=== PATIENT | male | born 1980 ===

== ENCOUNTER 2020-10-02 17:13 | Outpatient (REF) | payer OTHER, SELFPAY | END 2020-10-02 17:14 | disposition home or self-care (01) | LOC: HO.LAB 17:13 | PROVIDERS: Visit Provider Internal Medicine | DX: Z20.828 Contact with and (suspected) exposure to other viral communicable diseases (principal) | CPT/HCPCS: C9803; U0003 ==

== ENCOUNTER 2020-10-18 09:18 | Emergency (ER) | payer SELFPAY ==
[2020-10-18 09:38] VITALS: BP 129/59; PULSE 79; RESP 20; TEMP 37.7; O2SAT 97; BMI 36.8
--- NOTE | 2020-10-18 10:03 | XR_ITS ---
EXAMINATION: XR CHEST CLINICAL INFORMATION: Cough COMPARISON: Chest 10/29/2019 TECHNIQUE: Portable upright AP view of the chest was obtained. FINDINGS: The lungs are clear. There is no airspace consolidation or groundglass opacity. The heart is normal in size. The costophrenic sulci are well-defined. The hilar and mediastinal contours and bony structures are unremarkable. XR/XR chest 1V IMPRESSION: Unremarkable examination.
--- NOTE | 2020-10-18 10:27 | ECG_ITS ---
Test Reason : SOB Blood Pressure : / mmHG Vent. Rate : 074 BPM Atrial Rate : 074 BPM P-R Int : 198 ms QRS Dur : 086 ms QT Int : 354 ms P-R-T Axes : 026 079 037 degrees QTc Int : 392 ms Normal sinus rhythm Normal ECG No previous ECGs available Referred By: Mj Reaves Electronically Signed By:James Diez
[2020-10-18 11:11] VITALS: BP 131/68; PULSE 85; RESP 25; O2SAT 94
[2020-10-18] MEDS: 0.9 % Sodium Chloride 1,000 ML 999 ML IV (11:33)
[2020-10-18] MEDS: guaiFEN/Codeine SF 200/20/10ML 10 ML LIQUID PO (11:33)
[2020-10-18] MEDS: Ketorolac Tromethamine 30 MG/ML VIAL IVPUSH (11:33)
[2020-10-18 11:36] LABS: Basophils Percent Auto 0.4 % (0-2); Eosinophils Absolute Auto 0.3 X10*3/uL (0.0-0.4); Eosinophils Percent Auto 2.6 % (0-4); Hematocrit 43.4 % (42-52); Hemoglobin 14.4 g/dl (14.0-18.0); Imm Gran Abs Auto 0.05 X10*3/uL (0.00-0.03); Imm Gran Pct Auto 0.5 % (0.0-0.4); Lymphocytes Absolute Auto 1.3 X10*3/uL (1.2-4.9); Lymphocytes Percent Auto 12.9 % (20-40); MANUAL DIFF FLAG NO; Mean Corpuscular HGB Conc 33.2 g/dl (31.0-36.0); Mean Corpuscular Hemoglobin 29.1 pg (27.0-33.0); Mean Corpuscular Volume 87.9 fL (80-98); Monocytes Absolute Auto 1.1 X10*3/uL (0.1-1.2); Monocytes Percent Auto 11.2 % (2-11); Neutrophils Absolute Auto 7.4 X10*3/uL (2.0-8.3); Neutrophils Percent Auto 72.4 % (45-73); Platelet Count 235 X10*3/uL (160-400); Red Blood Count 4.94 X10*6/uL (4.60-5.80); Red Cell Distribution Width 12.9 % (11.0-16.0); White Blood Count 10.2 X10*3/uL (4.8-10.8)
[2020-10-18 11:39] LABS: D Dimer < 200 NG/ML
--- NOTE | 2020-10-18 11:39 | ED.URI ---
HPI - URI/Sore Throat General Chief Complaint: Upper Respiratory Symptoms Stated Complaint: cough,bodyaches Time Seen by Provider: 10/18/20 09:42 Source: patient Mode of arrival: ambulatory Limitations: no limitations History of Present Illness HPI Narrative: Patient presents to the ED for coughing, headache, body aches, and chest pain for about 10 days. Patient states also having similar symptoms. Patient denies any leg pain, calf swelling, coughing up blood, or chest pain on inspiration. Related Data Previous Rx's Medication Instructions Recorded benzonatate [Tessalon Perles] 100 mg PO TID PRN #15 cap 10/18/20 Allergies Allergy/AdvReac Type Severity Reaction Status Date / Time barium sulfate AdvReac Unknown inadequate Verified 11/03/19 00:00 response trazodone AdvReac Unknown dry mouth, Verified 11/03/19 00:00 vomiting Review of Systems Constitutional: Constitutional: Reports as per HPI, Reports no additional constitutional complaints, Reports body ache(s), Reports chills and Reports fever(s) Eyes: Eyes: Reports as per HPI and Reports no additional eye complaints ENT: Reports system reviewed and no additional complaints, except as documented and Reports as per HPI Cardiovascular: Cardiovascular: Reports as per HPI, Reports no additional cardiovascular complaints and Reports chest pain Respiratory: Respiratory: Reports as per HPI, Reports no additional respiratory complaints and Reports cough Gastrointestinal: Gastrointestinal: Reports as per HPI and Reports no additional gastrointestinal complaints Musculoskeletal: Musculoskeletal: Reports no additional musculoskeletal complaints and Reports as per HPI Neurologic: Reports system reviewed and no additional complaints, except as documented and Reports as per HPI Psychiatric: Psychiatric: Reports no additional psychiatric complaints and Reports as per HPI [facility] Past Medical History Medical History (Updated 10/18/20 @ 15:22 by JOSE Louis) No known health problems Social History Social History Advance Directives: No Advance Directives Information Provided: Yes Physical Exam Vital Signs: Vital Signs: Last Vital Signs Temp 99.3 F 10/18/20 15:01 Pulse 79 10/18/20 15:01 Resp 18 10/18/20 15:01 BP 131/62 10/18/20 15:01 Pulse Ox 97 10/18/20 15:01 Body Mass Index 36.8 Const: General: cooperative, healthy appearing, comfortable, no acute distress, well developed, alert and awake Orientation/consciousness: patient oriented x3 HENMT: Head: Yes normal to inspection and Yes No palpable skull fracture present Eyes: General: appearance normal, both eyes and all related structures Neck: Neck: Yes normal visual inspection, Yes full ROM, Yes no lymphadenopathy, Yes no meningeal signs, Yes trachea midline, Yes supple and No tender Chest: Chest palpation & inspection: normal inspection of the chest and normal palpation of entire chest wall Resp: Effort & Inspection: normal respiratory effort and able to speak in complete sentences Auscultation: clear to auscultation bilaterally Cardio: Jugular venous distension: no JVD Heart sounds: S1 normal heart sound present and S2 normal heart sound present GI: Inspection: Yes normal to inspection and No abdominal wall ecchymosis Palpation (GI): Soft to palpation, not firm, nontender, no guarding and not rigid : General: No CVA tenderness and Yes no CVA tenderness Back/Spine/Pelvis: Back: no CVA tenderness, No CVA tenderness and No back tenderness Skin: General skin exam: no rashes or lesions noted and elasticity normal Neuro: General: patient oriented x3, gait normal, no meningeal signs and CN's II-XI intact bilaterally Cranial nerves: Yes CN's II-XII intact bilaterally Extrem: Other: Lower extremities negative for any swelling, pitting edema, calf tenderness. General: Yes normal to inspection and Yes full ROM Psych: Appearance: grossly normal, well kempt and not disheveled Course Course Course Narrative: Patient having COVID like symptoms. Patient coughing profusely. Will do labs, chest x-ray, and IV fluids. COVID swab sent. Will re-evaluate patient. Reevaluation(s) Reevaluation #1: Patient positive for COVID-19 virus. Patient labs are normal. Patient states feeling better after receiving fluids and coughing medication. X-ray negative for pneumonia. D-dimer is negative. No antibiotics indicated. Patient is safe for discharge. Troponin negative with normal EKG Time: 15:19 MDM - URI/Sore Throat MDM Narrative Medical decision making narrative: COVID-19 Lab Data Result diagrams: 10/18/20 11:19 10/18/20 11:19 Labs: Lab Results 10/18/20 10/18/20 10/18/20 Range/Units 11:13 11:19 11:19 WBC 10.2 (4.8-10.8) X10*3/uL RBC 4.94 (4.60-5.80) X10*6/uL Hgb 14.4 (14.0-18.0) g/dl Hct 43.4 (42-52) % MCV 87.9 (80-98) fL MCH 29.1 (27.0-33.0) pg MCHC 33.2 (31.0-36.0) g/dl RDW 12.9 (11.0-16.0) % Plt Count 235 (160-400) X10*3/uL MPV 10.0 (9.4-12.4) fL Immature Gran % (Auto) 0.5 H (0.0-0.4) % Neut % (Auto) 72.4 (45-73) % Lymph % (Auto) 12.9 L (20-40) % [place] % (Auto) 11.2 H (2-11) % Eos % (Auto) 2.6 (0-4) % Baso % (Auto) 0.4 (0-2) % Lymph # (Auto) 1.3 (1.2-4.9) X10*3/uL [place] # (Auto) 1.1 (0.1-1.2) X10*3/uL Eos # (Auto) 0.3 (0.0-0.4) X10*3/uL Baso # (Auto) 0.0 (0.0-0.2) X10*3/uL Abs Immat Gran (auto) 0.05 H (0.00-0.03) X10*3/uL Absolute Neuts (auto) 7.4 (2.0-8.3) X10*3/uL Absolute Nucleated RBC 0.000 (0.0-0.012) X10*3/uL Nucleated RBC % (auto) 0.0 (0.0-0.2) /100WBC PT 12.4 (10.8-13.0) SEC INR 1.0 (0.9-1.1) APTT 30.5 (24.1-38.0) SEC D-Dimer < 200 NG/ML Sodium (135-145) mmol/L Potassium (3.3-5.1) mmol/l Chloride (96-108) mmol/L Carbon Dioxide (22-29) mmol/L Anion Gap (12-20) BUN (9-16) mg/dL Creatinine (0.5-1.4) mg/dL Estim Creat Clear Calc Estimated GFR Random Glucose (60-115) mg/dL Calcium (8.4-10.2) mg/dL Ferritin (20-250) ng/mL Total Bilirubin (0.0-1.0) mg/dL AST (5-37) U/L ALT (0-40) U/L Alkaline Phosphatase (39-117) U/L Lactate Dehydrogenase (118-273) U/L Troponin I High Sens (<3.5-35.0) ng/L B-Natriuretic Peptide (<100) pg/mL Total Protein (6.5-8.0) g/dL Albumin (3.5-5.0) g/dL Procalcitonin ng/mL Coronavirus (PCR) POSITIVE A (Negative) Influenza Type A (PCR) NEGATIVE (Negative) Influenza Type B (PCR) NEGATIVE (Negative) RSV RNA Qual (PCR) NEGATIVE (Negative) 10/18/20 10/18/20 10/18/20 Range/Units 11:19 11:19 11:19 WBC (4.8-10.8) X10*3/uL RBC (4.60-5.80) X10*6/uL Hgb (14.0-18.0) g/dl Hct (42-52) % MCV (80-98) fL MCH (27.0-33.0) pg MCHC (31.0-36.0) g/dl RDW (11.0-16.0) % Plt Count (160-400) X10*3/uL MPV (9.4-12.4) fL Immature Gran % (Auto) (0.0-0.4) % Neut % (Auto) (45-73) % Lymph % (Auto) (20-40) % [place] % (Auto) (2-11) % Eos % (Auto) (0-4) % Baso % (Auto) (0-2) % Lymph # (Auto) (1.2-4.9) X10*3/uL [place] # (Auto) (0.1-1.2) X10*3/uL Eos # (Auto) (0.0-0.4) X10*3/uL Baso # (Auto) (0.0-0.2) X10*3/uL Abs Immat Gran (auto) (0.00-0.03) X10*3/uL Absolute Neuts (auto) (2.0-8.3) X10*3/uL Absolute Nucleated RBC (0.0-0.012) X10*3/uL Nucleated RBC % (auto) (0.0-0.2) /100WBC PT (10.8-13.0) SEC INR (0.9-1.1) APTT (24.1-38.0) SEC D-Dimer NG/ML Sodium 138 (135-145) mmol/L Potassium 4.5 (3.3-5.1) mmol/l Chloride 104 (96-108) mmol/L Carbon Dioxide 26 (22-29) mmol/L Anion Gap 13 (12-20) BUN 18 H (9-16) mg/dL Creatinine 0.90 (0.5-1.4) mg/dL Estim Creat Clear Calc 136.7 Estimated GFR > 60 Random Glucose 97 (60-115) mg/dL Calcium 8.8 (8.4-10.2) mg/dL Ferritin 550 H (20-250) ng/mL Total Bilirubin 0.5 (0.0-1.0) mg/dL AST 86 H (5-37) U/L ALT 142 H (0-40) U/L Alkaline Phosphatase 111 (39-117) U/L Lactate Dehydrogenase 275 H (118-273) U/L Troponin I High Sens < 3.5 (<3.5-35.0) ng/L B-Natriuretic Peptide (<100) pg/mL Total Protein 6.9 (6.5-8.0) g/dL Albumin 4.1 (3.5-5.0) g/dL Procalcitonin 0.10 ng/mL Coronavirus (PCR) (Negative) Influenza Type A (PCR) (Negative) Influenza Type B (PCR) (Negative) RSV RNA Qual (PCR) (Negative) 10/18/20 Range/Units 11:19 WBC (4.8-10.8) X10*3/uL RBC (4.60-5.80) X10*6/uL Hgb (14.0-18.0) g/dl Hct (42-52) % MCV (80-98) fL MCH (27.0-33.0) pg MCHC (31.0-36.0) g/dl RDW (11.0-16.0) % Plt Count (160-400) X10*3/uL MPV (9.4-12.4) fL Immature Gran % (Auto) (0.0-0.4) % Neut % (Auto) (45-73) % Lymph % (Auto) (20-40) % [place] % (Auto) (2-11) % Eos % (Auto) (0-4) % Baso % (Auto) (0-2) % Lymph # (Auto) (1.2-4.9) X10*3/uL [place] # (Auto) (0.1-1.2) X10*3/uL Eos # (Auto) (0.0-0.4) X10*3/uL Baso # (Auto) (0.0-0.2) X10*3/uL Abs Immat Gran (auto) (0.00-0.03) X10*3/uL Absolute Neuts (auto) (2.0-8.3) X10*3/uL Absolute Nucleated RBC (0.0-0.012) X10*3/uL Nucleated RBC % (auto) (0.0-0.2) /100WBC PT (10.8-13.0) SEC INR (0.9-1.1) APTT (24.1-38.0) SEC D-Dimer NG/ML Sodium (135-145) mmol/L Potassium (3.3-5.1) mmol/l Chloride (96-108) mmol/L Carbon Dioxide (22-29) mmol/L Anion Gap (12-20) BUN (9-16) mg/dL Creatinine (0.5-1.4) mg/dL Estim Creat Clear Calc Estimated GFR Random Glucose (60-115) mg/dL Calcium (8.4-10.2) mg/dL Ferritin (20-250) ng/mL Total Bilirubin (0.0-1.0) mg/dL AST (5-37) U/L ALT (0-40) U/L Alkaline Phosphatase (39-117) U/L Lactate Dehydrogenase (118-273) U/L Troponin I High Sens (<3.5-35.0) ng/L B-Natriuretic Peptide < 10 (<100) pg/mL Total Protein (6.5-8.0) g/dL Albumin (3.5-5.0) g/dL Procalcitonin ng/mL Coronavirus (PCR) (Negative) Influenza Type A (PCR) (Negative) Influenza Type B (PCR) (Negative) RSV RNA Qual (PCR) (Negative) ECG Data Interpretation: Normal sinus rhythm. Normal EKG. Ventricular rate 74. Pr interval 198. QRS 86. Negative STEMI Discharge Plan Discharge Clinical Impression: COVID-19 Patient Disposition: Home, Self-Care Instructions: COVID-19 (Coronavirus Disease 2019) (ED) Additional Instructions: Return to the ED immediately for any chest pain, shortness of breath, weakness, dizziness, or any other concerning symptoms. Recommend 14 days self-isolation. Prescriptions: New benzonatate [Tessalon Perles] 100 mg capsule 100 mg PO TID PRN (Reason: cough) Qty: 15 RF: 0 Referrals: Chrissy Braden MD [Primary Care Provider] - 2 days (COVID 19 positive. X-ray negative for any pneumonia) Stand Alone Forms: Work/School Release Interventions: ED Discharge Assessment Last Done: 10/18/20 15:43 Discharge Date/Time: 10/18/20 15:44 Print Language: Setswana
[2020-10-18 11:59] LABS: Alanine Aminotransferase 142 U/L (0-40); Albumin Level 4.1 g/dL (3.5-5.0); Alkaline Phosphatase 111 U/L (39-117); Anion Gap 13 (12-20); Aspartate Amino Transferase 86 U/L (5-37); Bilirubin Total 0.5 mg/dL (0.0-1.0); Blood Urea Nitrogen 18 mg/dL (9-16); Calcium 8.8 mg/dL (8.4-10.2); Carbon Dioxide 26 mmol/L (22-29); Chloride 104 mmol/L (96-108); Creatinine Clr Calc Pharmacy 136.7; Estimated Glomerular Filt Rate > 60; Glucose Random 97 mg/dL (60-115); Lactate Dehydrogenase 275 U/L (118-273); Potassium 4.5 mmol/l (3.3-5.1); Sodium 138 mmol/L (135-145); Total Protein 6.9 g/dL (6.5-8.0)
[2020-10-18 12:01] LABS: B Type Natriuretic Peptide < 10 pg/mL (<100)
[2020-10-18 12:15] LABS: Troponin-I High Sensitivity < 3.5 ng/L (<3.5-35.0)
[2020-10-18 12:20] LABS: Ferritin 550 ng/mL (20-250)
[2020-10-18 12:30] LABS: Influenza A PCR NEGATIVE (Negative); Influenza B PCR NEGATIVE (Negative); Resp Syncy Virus RNA Qual PCR NEGATIVE (Negative); SARS COV2 PCR INHOUSE POSITIVE (Negative)
[2020-10-18 12:32] LABS: Prothrombin Time 12.4 SEC (10.8-13.0)
[2020-10-18 12:34] LABS: Partial Thromboplastin Time 30.5 SEC (24.1-38.0)
[2020-10-18 15:01] VITALS: BP 131/62; PULSE 79; RESP 18; TEMP 37.4; O2SAT 97
== END 2020-10-18 15:44 | disposition home or self-care (01) ==
PROVIDERS: Physician Assistant; Emergency Provider Emergency Medicine Emergency Medical Services; PCP Internal Medicine
DX: U07.1 COVID-19 (principal)
CPT/HCPCS: 0241U; 36415; 71045; 80053; 82728; 83615; 83880; 84145; 84484; 85025; 85379; 85610; 85730; 93005; 96361; 96374; 99284; J1885

== ENCOUNTER 2021-01-09 10:00 | Outpatient (REF) | payer SELFPAY ==
[2021-01-09 10:54] LABS: MANUAL DIFF FLAG NO
[2021-01-09 10:57] LABS: Basophils Percent Auto 0.3 % (0-2); Eosinophils Absolute Auto 0.2 X10*3/uL (0.0-0.4); Eosinophils Percent Auto 2.7 % (0-4); Hematocrit 45.3 % (42-52); Hemoglobin 14.8 g/dl (14.0-18.0); Imm Gran Abs Auto 0.03 X10*3/uL (0.00-0.03); Imm Gran Pct Auto 0.3 % (0.0-0.4); Lymphocytes Absolute Auto 2.6 X10*3/uL (1.2-4.9); Lymphocytes Percent Auto 30.1 % (20-40); Mean Corpuscular HGB Conc 32.7 g/dl (31.0-36.0); Mean Corpuscular Hemoglobin 28.6 pg (27.0-33.0); Mean Corpuscular Volume 87.6 fL (80-98); Mean Platelet Volume 10.4 fL (9.4-12.4); Monocytes Absolute Auto 0.8 X10*3/uL (0.1-1.2); Monocytes Percent Auto 9.5 % (2-11); Neutrophils Percent Auto 57.1 % (45-73); Platelet Count 287 X10*3/uL (160-400); Red Blood Count 5.17 X10*6/uL (4.60-5.80); Red Cell Distribution Width 12.7 % (11.0-16.0); White Blood Count 8.7 X10*3/uL (4.8-10.8)
[2021-01-09 11:36] LABS: Alanine Aminotransferase 160 U/L (0-40); Albumin Level 4.3 g/dL (3.5-5.0); Alkaline Phosphatase 103 U/L (39-117); Anion Gap 15 (12-20); Aspartate Amino Transferase 68 U/L (5-37); Bilirubin Total 0.6 mg/dL (0.0-1.0); Blood Urea Nitrogen 14 mg/dL (9-16); Calcium 9.3 mg/dL (8.4-10.2); Carbon Dioxide 25 mmol/L (22-29); Chloride 104 mmol/L (96-108); Cholesterol 185 mg/dL; Estimated Glomerular Filt Rate > 60; Glucose Fasting 109 mg/dL (60-99); HDL Cholesterol 46 mg/dL; LDL Cholesterol Calculated 122 mg/dl; Potassium 4.4 mmol/L (3.3-5.1); Sodium 140 mmol/L (135-145); Total Protein 7.1 g/dL (6.5-8.0); Triglycerides 88 mg/dL
[2021-01-13 15:32] LABS: Vitamin D 25-OH, D2 <4 ng/mL; Vitamin D 25-OH, D3 19 ng/mL; Vitamin D 25-OH, Total 19 ng/mL (30-100)
[2021-01-14 14:01] LABS: Testosterone, Free 44.3 pg/mL (35.0-155.0); Testosterone, Total 232 ng/dL (250-1100)
== END 2021-01-09 10:01 | disposition home or self-care (01) ==
LOC: HO.LAB 10:00
PROVIDERS: PCP Internal Medicine; Visit Provider Internal Medicine
DX: N53.19 Other ejaculatory dysfunction (principal); E78.5 Hyperlipidemia, unspecified; E66.9 Obesity, unspecified; K62.5 Hemorrhage of anus and rectum; D64.9 Anemia, unspecified; E55.9 Vitamin D deficiency, unspecified
CPT/HCPCS: 36415; 80053; 80061; 82306; 84402; 84403; 85025; 99202

== ENCOUNTER 2021-03-01 08:14 | Day surgery (SDC) | payer OTHER, SELFPAY ==
[2021-02-25 13:35] VITALS: BMI 36.6
--- NOTE | 2021-02-27 12:49 | HO.ANESPROP2 ---
Documented by User: Alva Lucia 02/27/21 12:50 HPI - Anesthesia Eval Consult details Narrative: 40yo M for Colonoscopy PMFSH Active Problems Active Problems: All Active Problems (Updated 02/25/21 @ 13:33 by Loni Morales) COVID-19 (Acute) Abnormal ejaculation (Acute) Obese (Acute) Family history of colon cancer (Acute) Rectal bleeding (Acute) Past Medical History Medical History Abnormal ejaculation Family history of colon cancer Obese Personal history of COVID-19 Rectal bleeding Family History Family History Father Hypertension Stroke Diabetes Mother Hypertension Diabetes Paternal Grandfather Cancer Paternal Aunt Cancer Brother Cancer, Onset Age: 52 Sister No problems noted. Surgical History Surgical History History of appendectomy History of incision and drainage Social History Social History Alcohol intake: current Alcohol intake frequency: holidays/special occasions only Smoking Status: Former smoker Tobacco Type: Cigarette Advance Directives Information Provided: No Meds Allergies Allergy/AdvReac Type Severity Reaction Status Date / Time barium sulfate AdvReac Intermediate inadequate Verified 02/22/21 14:17 response trazodone AdvReac Intermediate dry mouth, Verified 02/22/21 14:17 vomiting Exam Exam Date and Time: February 27, 2021 1249 Height,Weight and Vital Signs: Height 5 ft 10 in Weight 116 kg Narrative Narrative: EKG 10/2020 Vent. Rate : 074 BPM Atrial Rate : 074 BPM P-R Int : 198 ms QRS Dur : 086 ms QT Int : 354 ms P-R-T Axes : 026 079 037 degrees QTc Int : 392 ms Normal sinus rhythm Normal ECG No previous ECGs available Assessment and Plan Assessment Anesthesia Assessment: Chart Reviewed Documented by User: Cynthia Nj 03/01/21 08:49 PMFSH Past Medical History Medical History Abnormal ejaculation Family history of colon cancer Obese Personal history of COVID-19 Rectal bleeding Family History Family History Father Hypertension Stroke Diabetes Mother Hypertension Diabetes Paternal Grandfather Cancer Paternal Aunt Cancer Brother Cancer, Onset Age: 52 Sister No problems noted. Family history of problems with anesthesia: No Surgical History Surgical History History of appendectomy History of incision and drainage History of Problems with Anesthesia: No Social History Social History Alcohol intake: current Alcohol intake frequency: holidays/special occasions only Smoking Status: Former smoker Tobacco Type: Cigarette Advance Directives Information Provided: No Meds Allergies Allergy/AdvReac Type Severity Reaction Status Date / Time barium sulfate AdvReac Intermediate inadequate Verified 02/22/21 14:17 response trazodone AdvReac Intermediate dry mouth, Verified 02/22/21 14:17 vomiting Exam Height,Weight and Vital Signs: Vital Signs Temp Pulse Resp BP Pulse Ox 03/01/21 08:38 97.0 F 67 18 143/57 H 98 Airway Mallampati Class: III TM Dist: >3cm Neck ROM: Full Loose/Missing/Broken Teeth: Yes (Molars) Heart: RRR Lungs: CTAB Assessment and Plan Assessment Anesthesia Assessment: Anesthesia Plan Discussed and Chart Reviewed Final Anesthetic Review NPO: Yes ASA Class: II Final Preanesthetic Review: No Changes in Pt Med Stat, Meds/Allgs Chart Reviewed, Consent Obtained/Reviewed and Anes Risks/Benef Reviewed Patient Risk: Low Procedure Risk: Low Assessment/Block/Sedation in SS: Assess/Block/Sedation-SS Anesthetic Plan Anesthetic Plan: MAC: Disposition: Standard PACU
[2021-03-01 08:38] VITALS: BP 143/57; PULSE 67; RESP 18; TEMP 36.1; O2SAT 98
[2021-03-01] MEDS: Lactated Ringers 1,000 ML 100 ML IVCONT (08:52)
--- NOTE | 2021-03-01 09:32 | MHC.SHP ---
Pre-Procedural Eval Section B Chief Complaint: Rectal Bleeding Details of Present Illness: has passage of bright red blood per rectum periodically He states that his brother was diagnosed to have colon cancer at a young age Relevant Social History: None Present Medications: see Short Stay Collaborative assessment Allergies: Allergies Allergy/AdvReac Type Severity Reaction Status Date / Time barium sulfate AdvReac Intermediate inadequate Verified 03/01/21 08:53 response trazodone AdvReac Intermediate dry mouth, Verified 03/01/21 08:53 vomiting Review of Systems Sugical H&P ROS: Negative: Constitution, Cardiovascular, Respiratory, Neurological, Psychiatric, Hem-Onc, Allergic/Immunologic, Genitourinary, Musculoskeletal, Integumentary, Endocrine and Eyes/Ears/Nose/Throat and Yes, Specify: Gastrointestinal (Periodic passes of blood per rectum) Exam Surgical H&P Exam: Normal: HEENT, Normal: Heart, Normal: Lungs, Normal: Extremities, Normal: Abdomen, Normal: Skin and Normal: Neurological Plan Diagnosis/Plan: Unchanged I have reviewed the history and physical and performed a pertinent physical examination on my patient. No changes have occurred unless specified.
--- NOTE | 2021-03-01 10:16 | P.OP_ITS ---
Operative Note Operative Note Date of Service: 03/01/21 Narrative: Preop diagnosis: Rectal bleeding, family history of colon cancer Postop diagnosis as above, with hemorrhoids, normal colonoscopy findings Procedure: Colonoscopy Surgeon: Timmy Cannon MD The patient is a 40-year-old male who has had periodic passage of bright blood per rectum for about a year. He also says that he has brother who was diagnosed to have colon cancer at a young age. I had recommended for him to undergo colonoscopy. He understood the technique of the procedure. He was aware of the risks, benefits, and alternatives. He was brought to the operating room and placed in left lateral decubitus po sition under monitored anesthesia care. A full digital rectal was done. He did have a bulky internal and external hemorrhoid column. The tip of the Olympus colonoscope was gently introduced through the anal orifice and advanced with insufflation gently all the way to the cecum. The cecum was intubated. The cecum was identified via visualization of the ileocecal valve as well as the appendiceal orifice. The cecal mucosa was unremarkable. The scope was then gradually withdrawn with careful examination of the entire colonic mucosa done with scope withdrawal. The patient had adequate bowel prep so it was unlikely that any lesion may have been missed. The rectum was reached. There were no lesions seen. The anal canal and anal shelf were unremarkable. He did have a bulky internal/ external column. The scope was then withdrawn completely. The patient tolerated procedure well. There were no immediate complications. He was transferred to the recovery room with stable vital signs. In view of his family history I would recommend screening colonoscopy every 5 years at this time.
[2021-03-01 10:20] VITALS: BP 134/88; PULSE 78; RESP 16; TEMP 36.4; O2SAT 100
--- NOTE | 2021-03-01 10:21 | PM.OP ---
Brief Operative Note Date of Service: 03/01/21 Pre-op diagnosis: Blood per rectum, family history of colon cancer Post-op diagnosis: same Procedure: Colonoscopy Surgeon: Timmy Cannon MD Anesthesia: MAC Was an [employer] Specialist used for this Procedure?: No Estimated blood loss (mL): 0 Pathology: none sent Condition: stable Disposition: PACU
[2021-03-01 10:35] VITALS: BP 149/81; PULSE 76; RESP 18; TEMP 36.4; O2SAT 98
[2021-07-09 09:51] VITALS: BMI 38.4
== END 2021-03-01 10:51 | disposition home or self-care (01) ==
PROVIDERS: PCP Internal Medicine; Visit Provider Surgery
PROC: 0DJD8ZZ Inspection of Lower Intestinal Tract, Via Natural or Artificial Opening Endoscopic (ICD-10-PCS; CPT 45378; principal; 2021-03-01 09:30)
DX: K62.5 Hemorrhage of anus and rectum (principal); Z80.0 Family history of malignant neoplasm of digestive organs; K64.8 Other hemorrhoids; K64.4 Residual hemorrhoidal skin tags; Z86.16 Personal history of COVID-19; Z88.8 Allergy status to other drugs, medicaments and biological substances; Z87.891 Personal history of nicotine dependence
CPT/HCPCS: 45378

== ENCOUNTER → 2021-03-13 12:06 | Outpatient (BNVA) | payer OTHER, SELFPAY | PROVIDERS: PCP Internal Medicine; Visit Provider Surgery | CPT/HCPCS: 99212 ==

== ENCOUNTER → 2021-03-27 11:14 | Outpatient (BNVA) | payer OTHER, SELFPAY | PROVIDERS: PCP Internal Medicine; Referring Provider Internal Medicine; Visit Provider Surgery | DX: K64.9 Unspecified hemorrhoids (principal); Z80.0 Family history of malignant neoplasm of digestive organs | CPT/HCPCS: 99212 ==

== ENCOUNTER 2021-04-11 13:07 | Outpatient (REF) | payer OTHER, SELFPAY ==
--- NOTE | ~2021-04-11 | XR_ITS ---
EXAMINATION: XR ANKLE, RIGHT CLINICAL INFORMATION: Effusion, right ankle COMPARISON: None TECHNIQUE: AP, lateral, and mortise views of the right ankle. FINDINGS: No fracture or dislocation. Large plantar calcaneal enthesophyte. Mild spurring of the dorsal midfoot. No widening of the ankle mortise. No soft tissue swelling. XR/XR ankle RT min 3V IMPRESSION: No acute osseous abnormality.
--- NOTE | ~2021-04-11 | XR_ITS ---
EXAMINATION: XR CHEST CLINICAL INFORMATION: Cough COMPARISON: 10/18/2020 TECHNIQUE: 2 views of the chest were obtained. FINDINGS: Lungs are clear. No focal consolidation or mass. Normal pulmonary vascularity. No pleural effusion or pneumothorax. Normal heart size. No acute osseous abnormality. XR/XR chest 2V IMPRESSION: No acute pulmonary disease
--- NOTE | ~2021-04-11 | US_ITS ---
EXAMINATION: US VENOUS ULTRASOUND WITH DOPPLER LOWER EXTREMITY, RIGHT CLINICAL INFORMATION: Right ankle swelling COMPARISON: None TECHNIQUE: Ultrasound of the deep veins is performed from the hip to the calf with compression sonography and color and pulse Doppler assessment. Spectral analysis with color-flow imaging is performed. FINDINGS: There is normal venous compression and respiratory variation and augmented flow. The visualized common femoral vein, superficial femoral vein, profunda femoral vein, popliteal vein, and the trifurcation region shows no evidence of deep venous thrombosis. There is a small varicosity seen in the proximal anterior calf. No evidence of superficial thrombophlebitis is seen. There is no popliteal fossa cyst. US/US venous duplex LE RT IMPRESSION: No DVT demonstrated in the right lower extremity.
== END 2021-04-11 13:08 | disposition home or self-care (01) ==
LOC: HO.US 13:07
PROVIDERS: PCP Internal Medicine; Visit Provider Nurse Practitioner Family
DX: R05 Cough (principal); M25.471 Effusion, right ankle
CPT/HCPCS: 71046; 73610; 93971

== ENCOUNTER → 2021-06-19 10:33 | Outpatient (BNVA) | payer OTHER, SELFPAY | PROVIDERS: PCP Internal Medicine; Referring Provider Internal Medicine; Visit Provider Surgery | DX: K64.2 Third degree hemorrhoids (principal) | CPT/HCPCS: 46600; 99212 ==

== ENCOUNTER 2021-07-03 08:36 | Outpatient (REF) | payer OTHER, SELFPAY ==
[2021-07-03 11:35] LABS: MANUAL DIFF FLAG NO
[2021-07-03 11:43] LABS: Basophils Percent Auto 0.3 % (0-2); Eosinophils Absolute Auto 0.2 X10*3/uL (0.0-0.4); Eosinophils Percent Auto 2.4 % (0-4); Hematocrit 46.2 % (42-52); Imm Gran Abs Auto 0.04 X10*3/uL (0.00-0.03); Imm Gran Pct Auto 0.4 % (0.0-0.4); Lymphocytes Absolute Auto 2.8 X10*3/uL (1.2-4.9); Lymphocytes Percent Auto 27.8 % (20-40); Mean Corpuscular HGB Conc 32.5 g/dl (31.0-36.0); Mean Corpuscular Hemoglobin 28.6 pg (27.0-33.0); Mean Platelet Volume 10.3 fL (9.4-12.4); Monocytes Absolute Auto 0.9 X10*3/uL (0.1-1.2); Monocytes Percent Auto 8.5 % (2-11); Neutrophils Absolute Auto 6.1 X10*3/uL (2.0-8.3); Neutrophils Percent Auto 60.6 % (45-73); Platelet Count 306 X10*3/uL (160-400); Red Blood Count 5.25 X10*6/uL (4.60-5.80); Red Cell Distribution Width 12.4 % (11.0-16.0)
[2021-07-03 12:20] LABS: Alanine Aminotransferase 111 U/L (0-40); Albumin Level 4.2 g/dL (3.5-5.0); Alkaline Phosphatase 125 U/L (39-117); Anion Gap 15 (12-20); Aspartate Amino Transferase 59 U/L (5-37); Bilirubin Total 0.4 mg/dL (0.0-1.0); Blood Urea Nitrogen 14 mg/dL (9-16); Calcium 9.4 mg/dL (8.4-10.2); Carbon Dioxide 26 mmol/L (22-29); Chloride 105 mmol/L (96-108); Cholesterol 182 mg/dL; Estimated Glomerular Filt Rate > 60; Gamma Glutamyl Transpeptidase 62 U/L (11-51); Glucose Fasting 111 mg/dL (60-99); HDL Cholesterol 46 mg/dL; LDL Cholesterol Calculated 114 mg/dl; Potassium 4.8 mmol/L (3.3-5.1); Sodium 141 mmol/L (135-145); Total Protein 6.9 g/dL (6.5-8.0); Triglycerides 114 mg/dL
[2021-07-11 16:46] LABS: Vitamin D 25-OH, D2 <4 ng/mL; Vitamin D 25-OH, D3 21 ng/mL; Vitamin D 25-OH, Total 21 ng/mL (30-100)
== END 2021-07-03 08:37 | disposition home or self-care (01) ==
LOC: HO.LAB 08:36
PROVIDERS: Absent Provider Internal Medicine; PCP Internal Medicine; Visit Provider Nurse Practitioner Family
DX: K58.2 Mixed irritable bowel syndrome (principal); K21.9 Gastro-esophageal reflux disease without esophagitis; K64.9 Unspecified hemorrhoids; E78.5 Hyperlipidemia, unspecified; E55.9 Vitamin D deficiency, unspecified; D64.9 Anemia, unspecified; K62.5 Hemorrhage of anus and rectum; R74.01 Elevation of levels of liver transaminase levels
CPT/HCPCS: 36415; 80053; 80061; 82306; 82977; 85025

== ENCOUNTER 2021-07-12 07:59 | Day surgery (SDC) | payer OTHER, SELFPAY ==
[2021-07-12] VITALS (9 sets, daily range): BP systolic 125–163; BP diastolic 74–94; PULSE 66–78; RESP 16–18; TEMP 36.2–36.4; O2SAT 94–99; BMI 37.3
[2021-07-12] MEDS: Lactated Ringers 1,000 ML 50 ML IVCONT (09:06)
--- NOTE | 2021-07-12 09:25 | P.CONAN_ITS ---
[facility] Active Problems Active Problems: All Active Problems (Updated 07/01/21 @ 11:50 by Chrissy diaz MD) Class 2 obesity with body mass index (BMI) of 38.0 to 38.9 in adult (Acute) Hypovitaminosis D (Acute) Testosterone deficiency (Acute) Transaminitis (Acute) Hemorrhoids that prolapse with straining and require manual replacement back inside anal canal (Acute) Cough (Acute) Swollen R ankle (Acute) Testicular pain (Acute) Bleeding hemorrhoids (Acute) COVID-19 (Acute) Abnormal ejaculation (Acute) Obese (Acute) Family history of colon cancer (Acute) Rectal bleeding (Acute) Past Medical History Medical History Abnormal ejaculation Bleeding hemorrhoids Class 2 obesity with body mass index (BMI) of 38.0 to 38.9 in adult Cough Family history of colon cancer Hemorrhoids that prolapse with straining and require manual replacement back inside anal canal Hypovitaminosis D Obese Personal history of COVID-19 Rectal bleeding Swollen R ankle Testicular pain Testosterone deficiency Transaminitis Family History Family History Father Hypertension Stroke Diabetes Mother Hypertension Diabetes Paternal Grandfather Cancer Paternal Aunt Cancer Brother Cancer, Onset Age: 52 Sister No problems noted. Family history of problems with anesthesia: No Surgical History Surgical History History of appendectomy History of colonoscopy History of incision and drainage History of Problems with Anesthesia: No Social History Social History Housing: House Alcohol intake: current Alcohol intake frequency: holidays/special occasions only Patient Tobacco Use Status: Former Tobacco user Quit Date: 09/2020 e-Cigarette/Vaping Use: Never Used Second Hand Smoke Exposure: No Use of substances other than those prescribed or required for medical reasons: No Are you DNR?: No Advance Directives: No Advance Directives Information Provided: Yes Recently lost weight without trying: No Nutrition Risks: No Nutritional Risk service: No Current occupational status: employed 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 Current occupational exposures/hazards: No Meds Allergies Allergy/AdvReac Type Severity Reaction Status Date / Time barium sulfate AdvReac Intermediate inadequate Verified 07/03/21 08:44 response trazodone AdvReac Intermediate dry mouth, Verified 07/03/21 08:44 vomiting Exam Exam Date and Time: July 12, 2021 0925 Height,Weight and Vital Signs: Height 5 ft 10 in Weight 117.934 kg Last Vital Signs Temp 97.2 F 07/12/21 08:28 Pulse 66 07/12/21 08:28 Resp 16 07/12/21 08:28 BP 125/74 07/12/21 08:28 Pulse Ox 95 07/12/21 08:28 Airway Mallampati Class: II (Full neck, large tongue) TM Dist: >3cm Neck ROM: Full Loose/Missing/Broken Teeth: No Heart: RRR Lungs: CTA Assessment and Plan Assessment Anesthesia Assessment: Anesthesia Plan Discussed and Chart Reviewed Final Anesthetic Review Family History of Problems with Anesthesia: No History of Problems with Anesthesia: No Final Preanesthetic Review: Meds/Allgs Chart Reviewed, Consent Obtained/Reviewed and Anes Risks/Benef Reviewed Patient Risk: Low Procedure Risk: Intermediate Anesthetic Plan Anesthetic Plan: GA Disposition: Standard PACU
--- NOTE | 2021-07-12 10:11 | MHC.SHP ---
Pre-Procedural Eval Section A Date of Service: 07/12/21 Section B Chief Complaint: Third degree hemorrhoids Allergies: Allergies Allergy/AdvReac Type Severity Reaction Status Date / Time barium sulfate AdvReac Intermediate inadequate Verified 07/03/21 08:44 response trazodone AdvReac Intermediate dry mouth, Verified 07/03/21 08:44 vomiting Plan I have reviewed the history and physical and performed a pertinent physical examination on my patient. No changes have occurred unless specified.
--- NOTE | 2021-07-12 11:37 | W.PM.OPN ---
Operative Note Operative Note Date of Service: 07/12/21 Narrative: Preop diagnosis: Bleeding and painful hemorrhoids Postop diagnosis: Bleeding and painful internal and external hemorrhoids Procedure: Exam under anesthesia hemorrhoidectomy x2 columns Surgeon: Timmy Cannon MD The patient is a 40-year-old male was had chronic problems pain and bleeding from his hemorrhoids. He was seen in the office and he was noted to have bulky hemorrhoidal columns on the left and the right side. He wanted to proceed with hemorrhoidectomy. He understood the technique of the procedure as well as the risks, benefits, and alternatives Was brought to the operating room and placed in prone louis-knife position under general anesthesia via endotracheal tube. The buttocks were retracted with wide tape laterally. The perianal area was prepped in the usual sterile fashion. A surgical time-out was done. The patient received Cefotan 2 g IV preoperatively. Examination of the anal orifice revealed bulky hemorrhoidal columns with external and prolapsing internal component. I inserted abuse Burger retractor and examined the anal canal circumferentially. Again these mixed internal and external hemorrhoid columns were noted on the left and right side, both bulky. There were no other lesions. There was no bleeding I applied a Ram grasper at the hemorrhoidal column on the left to retract this. I made a hohpeb-cv-bxefj stitch at the pedicle proximal to the dentate line using chromic 3-0 stitch. I made an incision around this hemorrhoidal column to the perianal skin with a blade 15., and excised this hemorrhoidal column above the plane of sphincters along this incision using Metzenbaum scissors. I then closed the incision with a running chromic 3-0 stitch. I added hemostatic wstjfr-si-cfghc sutures as well for oozing areas The same procedure was duplicated on the hemorrhoidal column on the right. Again this was retracted the Ram grasper. A jwzztc-fz-ixzgo stitch was applied at the pedicle. I made an incision around this column to the perianal skin. I excise the hemorrhoidal column above the plane of sphincters using scissors and closed the incision running chromic 3-0 stitch with additional hemostatic sutures being placed. I observed for hemostasis. Once hemostasis was ensured I proceeded to then apply a rolled Gelfoam into the anal canal for additional hemostasis. I infiltrated the perianal area with Marcaine 0.5% for postop analgesia. The procedure was then completed. The patient tolerated the procedure well. There were no complications noted. Estimated blood loss was about 25 cc. The patient is extubated without difficulty and transferred to the recovery room with stable vital signs.
--- NOTE | 2021-07-12 11:42 | P.BOP_ITS ---
Brief Operative Note Date of Service: 07/12/21 Pre-op diagnosis: Bleeding and painful hemorrhoids Post-op diagnosis: same (Internal and external) Procedure: Exam under anesthesia, hemorrhoidectomy times x2 columns Surgeon: Timmy Cannon MD Anesthesia: GETA Was an Paving Plant Operator used for this Procedure?: No Estimated blood loss (mL): 25 Pathology: other (Hemorrhoids) Condition: stable Disposition: PACU
[2021-07-12] MEDS: oxyCODONE HCl Immed Release 5 MG TABLET 10 MG PO (12:19)
[2021-07-12] MEDS: fentaNYL citrate/PF 100 MCG/2 ML VIAL 50 MCG IVPUSH ×2 (12:23→12:29)
== END 2021-07-12 13:50 | disposition home or self-care (01) ==
PROVIDERS: PCP Internal Medicine; Visit Provider Surgery
PROC: (CPT 46260; principal; 2021-07-12 10:10)
DX: K64.2 Third degree hemorrhoids (principal); G89.29 Other chronic pain; K58.2 Mixed irritable bowel syndrome; K21.9 Gastro-esophageal reflux disease without esophagitis; E66.9 Obesity, unspecified; E55.9 Vitamin D deficiency, unspecified; Z68.38 Body mass index [BMI] 38.0-38.9, adult; Z80.0 Family history of malignant neoplasm of digestive organs; Z86.16 Personal history of COVID-19; Z87.891 Personal history of nicotine dependence
CPT/HCPCS: 46260; 88304; J1100; J1885; J2250; J2370; J2405; J3010

== ENCOUNTER → 2021-07-25 15:43 | Outpatient (BNVA) | payer OTHER, SELFPAY | PROVIDERS: PCP Internal Medicine; Referring Provider Internal Medicine; Visit Provider Surgery | DX: Z48.815 Encounter for surgical aftercare following surgery on the digestive system (principal); Z87.19 Personal history of other diseases of the digestive system | CPT/HCPCS: 99212 ==

== ENCOUNTER → 2021-08-22 10:51 | Outpatient (BNVA) | payer OTHER, SELFPAY | PROVIDERS: PCP Internal Medicine; Visit Provider Urology | DX: N50.819 Testicular pain, unspecified (principal); R10.30 Lower abdominal pain, unspecified | CPT/HCPCS: 64450; 99202 ==

== ENCOUNTER → 2021-09-02 13:44 | Outpatient (BNVA) | payer OTHER, SELFPAY | PROVIDERS: Referring Provider Internal Medicine; Visit Provider Nurse Practitioner Family | DX: K21.9 Gastro-esophageal reflux disease without esophagitis (principal); K58.9 Irritable bowel syndrome, unspecified; K64.2 Third degree hemorrhoids; E66.01 Morbid (severe) obesity due to excess calories; Z68.37 Body mass index [BMI] 37.0-37.9, adult; Z87.891 Personal history of nicotine dependence; Z82.49 Family history of ischemic heart disease and other diseases of the circulatory system; Z83.3 Family history of diabetes mellitus; Z80.0 Family history of malignant neoplasm of digestive organs; Z88.4 Allergy status to anesthetic agent; Z88.8 Allergy status to other drugs, medicaments and biological substances | CPT/HCPCS: 99212 ==

== ENCOUNTER 2021-09-17 11:01 | Outpatient (REF) | payer SELFPAY | END 2021-09-17 11:02 | disposition home or self-care (01) | LOC: HO.LNP 11:01 | PROVIDERS: Visit Provider Nurse Practitioner Family | DX: K21.9 Gastro-esophageal reflux disease without esophagitis (principal) | CPT/HCPCS: 87338 ==

== ENCOUNTER 2021-10-10 10:08 | Outpatient (REF) | payer SELFPAY ==
[2021-10-11 03:37] LABS: Follicle Stimulating Hormone 10.2 mIU/mL (1.6-8.0); Lutenizing Hormone 5.4 mIU/mL (1.5-9.3)
[2021-10-17 11:15] LABS: Testosterone, Free 42.9 pg/mL (35.0-155.0); Testosterone, Total 185 ng/dL (250-1100)
== END 2021-10-10 10:09 | disposition home or self-care (01) ==
LOC: HO.LAB 10:08
PROVIDERS: PCP Internal Medicine; Visit Provider Urology
DX: E29.1 Testicular hypofunction (principal); E34.9 Endocrine disorder, unspecified
CPT/HCPCS: 36415; 83001; 83002; 84402; 84403

== ENCOUNTER → 2021-10-24 11:19 | Outpatient (BNVA) | payer OTHER, SELFPAY | PROVIDERS: PCP Internal Medicine; Visit Provider Urology | DX: E34.9 Endocrine disorder, unspecified (principal); R10.30 Lower abdominal pain, unspecified | CPT/HCPCS: 99212 ==

== ENCOUNTER → 2021-12-13 14:28 | Outpatient (BNVA) | payer OTHER, SELFPAY | PROVIDERS: PCP Internal Medicine; Visit Provider Nurse Practitioner Family | DX: K21.9 Gastro-esophageal reflux disease without esophagitis (principal); K58.2 Mixed irritable bowel syndrome; R74.01 Elevation of levels of liver transaminase levels | CPT/HCPCS: 99212 ==

== ENCOUNTER 2021-12-30 09:47 | Outpatient (REF) | payer OTHER, SELFPAY ==
[2021-12-30 11:04] LABS: Alanine Aminotransferase 161 U/L (0-40); Albumin Level 4.4 g/dL (3.5-5.0); Alkaline Phosphatase 218 U/L (39-117); Aspartate Amino Transferase 66 U/L (5-37); Bilirubin Direct 0.2 mg/dL (0.0-0.5); Bilirubin Total 0.5 mg/dL (0.0-1.0); C Reactive Protein 1.24 mg/dL (< or = 0.50); Lipase 34 U/L (8-78); Total Protein 7.6 g/dL (6.5-8.0)
[2021-12-30 11:10] LABS: TSH reflex Free T4 1.48 uIU/mL (0.32-4.0)
[2021-12-30 11:39] LABS: Ferritin 548 ng/mL (20-250)
[2021-12-30 11:49] LABS: HBc Num1 0.14 S/CO (0.00-0.79); Hepatitis B Core Antibody Nonreactive (Nonreactive); ~HepC Num1 0.29 S/CO (0.00-0.79); ~Hepatitis B Surface Antibody REACTIVE (Nonreactive); ~Hepatitis C Antibody Nonreactive (Nonreactive)
[2021-12-30 11:53] LABS: HBsAGNum1 0.19 S/CO (0.00-0.99); HIV AB/AG Nonreactive (Nonreactive); HIV Num 1 0.04 S/CO (0.00-0.99); Hepatitis B Surface Antigen Negative (Negative)
[2022-01-01 07:32] LABS: Hepatitis A Antibody IgM 0.14 Index (0-0.79); ~Hepatitis A Antibody IgM Nonreactive (Nonreactive)
[2022-01-01 13:06] LABS: Alpha Fetoprotein 7.3 ng/mL (<6.1)
[2022-01-01 14:00] LABS: Ceruloplasmin 26 mg/dL (18-36)
[2022-01-02 21:16] LABS: Smooth Muscle Antibody <20 U (<20)
[2022-01-02 21:42] LABS: Transglutaminase Ab IgG <1.0 U/mL; Transglutaminase IgA <1.0 U/mL
[2022-01-04 12:31] LABS: Mitochondrial Antibodies NEGATIVE (NEGATIVE)
[2022-01-04 19:16] LABS: Testosterone, Free 46.7 pg/mL (35.0-155.0); Testosterone, Total 197 ng/dL (250-1100)
[2022-01-06 01:06] LABS: FIB-ALT 138 U/L (9-46); FIB-Alpha-2-Macroglobulin 113 mg/dL (106-279); FIB-Apolipoprotein A1 159 mg/dL (94-176); FIB-GGT 77 U/L (3-95); FIB-Haptoglobin 226 mg/dL (43-212); FIB-Total Bilirubin 0.4 mg/dL (0.2-1.2); Liver Fibrosis Score 0.06; Liver Fibrosis Stage F0; Nec Inflam Act Grade A2-A3; Nec Inflam Act Score 0.61
== END 2021-12-30 09:48 | disposition home or self-care (01) ==
LOC: HO.LAB 09:47
PROVIDERS: Absent Provider Urology; PCP Internal Medicine; Visit Provider Nurse Practitioner Family
DX: E29.1 Testicular hypofunction (principal); E34.9 Endocrine disorder, unspecified; R94.5 Abnormal results of liver function studies; K58.9 Irritable bowel syndrome, unspecified; R74.8 Abnormal levels of other serum enzymes; R19.7 Diarrhea, unspecified; R14.0 Abdominal distension (gaseous); R10.11 Right upper quadrant pain
CPT/HCPCS: 36415; 80076; 81596; 82105; 82390; 82728; 83690; 84402; 84403; 84443; 86015; 86140; 86255; 86256; 86364; 86704; 86706; 86709; 86803; 87340; 87389

== ENCOUNTER → 2022-01-09 11:57 | Outpatient (REF) | payer OTHER, SELFPAY ==
--- NOTE | 2022-01-09 12:04 | ECG_ITS ---
Test Reason : R07.9 Blood Pressure : / mmHG Vent. Rate : 061 BPM Atrial Rate : 061 BPM P-R Int : 190 ms QRS Dur : 086 ms QT Int : 382 ms P-R-T Axes : 031 075 058 degrees QTc Int : 384 ms Normal sinus rhythm Normal ECG When compared with ECG of 18-OCT-2020 11:07, No significant change was found Referred By: Chrissy Ritter Electronically Signed By:MIRNA GUERRIER
== END ==
LOC: HO.CARD 11:57
PROVIDERS: PCP Internal Medicine; Visit Provider Internal Medicine
DX: R07.9 Chest pain, unspecified (principal)
CPT/HCPCS: 93005

== ENCOUNTER 2022-01-21 08:50 | Outpatient (REF) | payer OTHER, SELFPAY ==
--- NOTE | ~2022-01-21 | US_ITS ---
EXAMINATION: US ABDOMEN COMPLETE CLINICAL INFORMATION: Unspecified abdominal pain. COMPARISON: None. TECHNIQUE: Real-time imaging of the abdominal viscera. FINDINGS: PANCREAS: The head and body of the pancreas is homogeneous in echotexture. The tail is obscured by overlying gas. ABDOMINAL AORTA: The proximal, mid, and distal segments are normal in caliber. INFERIOR VENA CAVA: Visualized portions are normal. LIVER: The liver is enlarged measuring 16.3 cm in length. The liver contour is normal. There is diffuse increased liver echogenicity. No focal hepatic lesion. There is no intrahepatic biliary duct dilatation seen. GALLBLADDER: The gallbladder wall thickness is 0.2 cm. The gallbladder is physiologically distended without evidence of stones, sludge, polyps, wall thickening or pericholecystic fluid. COMMON BILE DUCT: Normal in caliber measuring 0.3 cm in diameter. RIGHT KIDNEY: Normal. No hydronephrosis. No renal calculi or focal parenchymal lesions. The kidney measures 12.8 cm in maximum dimension. LEFT KIDNEY: Normal. No hydronephrosis. No renal calculi or focal parenchymal lesions. The kidney measures 11.9 cm in maximum dimension. SPLEEN: Normal. The spleen measures 11.2 cm in maximum dimension. FREE FLUID: None. US/US abdomen complete IMPRESSION: Mild hepatic steatosis with hepatomegaly. No focal lesion seen. The rest of the abdominal ultrasound is unremarkable.
== END 2022-01-21 08:51 | disposition home or self-care (01) ==
LOC: HO.US 08:50
PROVIDERS: PCP Internal Medicine; Visit Provider Nurse Practitioner Family
DX: R10.9 Unspecified abdominal pain (principal)
CPT/HCPCS: 76700

== ENCOUNTER → 2022-01-22 11:00 | Outpatient (BNVA) | payer OTHER, SELFPAY | PROVIDERS: PCP Internal Medicine; Visit Provider Urology | DX: Z13.89 Encounter for screening for other disorder (principal) ==

== ENCOUNTER 2022-01-28 13:47 | Outpatient (REF) | payer OTHER, SELFPAY ==
--- NOTE | ~2022-01-28 | MM_ITS ---
EXAMINATION: MM DIAGNOSTIC DIGITAL BREAST TOMOSYNTHESIS, BILATERAL US DIAGNOSTIC ULTRASOUND BREAST, RIGHT CLINICAL INFORMATION: 41-year-old male with firm tender retroareolar right breast noted by patient for 2 months. No discharge. No prior breast imaging. COMPARISON: None (current study represents initial baseline exam). TECHNIQUE: Digital breast tomosynthesis is performed in both the craniocaudal and mediolateral oblique views along with computer-aided detection (CAD). Synthesized 2D images are generated from the tomosynthesis. Additional right CC view is provided. Ultrasound right breast is performed in all 4 quadrants and also additional imaging in the retroareolar and periareolar breast in area of symptoms. Grayscale imaging and color Doppler are performed without and with harmonics. FINDINGS: The breasts are almost entirely fatty (ACR BI-RADS breast composition Category a). There is some focal fibroglandular density immediately beneath the right nipple consistent with mild asymmetric gynecomastia. There is no mass or architectural abnormality. No abnormal calcifications. The remainder of the breasts are unremarkable. The skin contours are unremarkable. Ultrasound demonstrates no cystic or solid mass or architectural abnormality. No focal duct ectasia. No skin thickening or coarsening of the stromal markings. No edema in soft tissue planes. Results are discussed with the patient at time of visit, using an nursing agency manager. MM/MM tomosynthesis diagnostic BI IMPRESSION: -Mild subareolar asymmetric right gynecomastia. -Unremarkable left breast. ASSESSMENT: BI-RADS 2: Benign RECOMMENDATION: Patient may be managed as needed based on the clinical impression.
== END 2022-01-28 13:48 | disposition home or self-care (01) ==
LOC: HO.MAMMO 13:47
PROVIDERS: PCP Internal Medicine; Visit Provider Internal Medicine
DX: N64.4 Mastodynia (principal); N63.14 Unspecified lump in the right breast, lower inner quadrant
CPT/HCPCS: 76642; 77062; 77066

== ENCOUNTER → 2022-02-17 13:55 | Outpatient (BNVA) | payer OTHER, SELFPAY | PROVIDERS: PCP Internal Medicine; Referring Provider Internal Medicine; Visit Provider Nurse Practitioner Family | DX: K58.9 Irritable bowel syndrome, unspecified (principal); R74.01 Elevation of levels of liver transaminase levels; R14.0 Abdominal distension (gaseous) | CPT/HCPCS: 99212 ==

== ENCOUNTER → 2022-03-06 14:05 | Outpatient (BNVA) | payer OTHER, SELFPAY | PROVIDERS: PCP Internal Medicine; Referring Provider Internal Medicine; Visit Provider Internal Medicine Cardiovascular Disease | DX: R07.9 Chest pain, unspecified (principal); I10 Essential (primary) hypertension | CPT/HCPCS: 99202 ==

== ENCOUNTER → 2022-04-21 10:51 | Outpatient (REF) | payer OTHER, SELFPAY | LOC: HO.SL 10:51 | PROVIDERS: Visit Provider Internal Medicine Cardiovascular Disease | DX: G47.33 Obstructive sleep apnea (adult) (pediatric) (principal) | CPT/HCPCS: 95806 ==

== ENCOUNTER → 2022-05-05 10:04 | Outpatient (REF) | payer OTHER, SELFPAY ==
--- NOTE | 2022-05-05 10:07 | CA_ITS ---
Transthoracic Echocardiogram Patient (Last, First, Middle): David Richter, Gender: Male Date of : 1980 Age: 41 Procedure Date: 05/05/2022 Procedure Type: Transthoracic Echocardiogram Location: OP Height: 175.26 cm Weight: 113.4 kg BSA: 2.27 m2 Heart Rate: bpm BP: 138 / 90 mmHg Trimmer Hand: JASON Referring MD: Mario Mcdowell MD Symptoms: R07.9 - Chest pain, unspecified Study Quality: Adequate ECG Rhythm: Sinus Conclusions: - The left ventricular systolic function is normal. The calculated ejection fraction is 58% by biplane method. - Moderately increased right ventricular cavity size. - No obvious valvular pathology seen on this study. Findings Left Ventricle Normal left ventricular cavity size. There is mildly increased left ventricular wall thickness. The left ventricular systolic function is normal. The calculated ejection fraction is 58% by biplane method. There is no evidence of regional wall motion abnormalities. Diastolic function is normal for age. Right Ventricle Moderately increased right ventricular cavity size. There is normal right ventricular systolic function. Atria Both atria are normal in size. Aortic Valve There is a normal trileaflet aortic valve. There is no aortic valve stenosis. There is no aortic valve regurgitation. Mitral Valve The mitral valve appears normal. There is no mitral valve regurgitation. There is no mitral valve stenosis. Pulmonic Valve The pulmonic valve is likely normal. There is trace pulmonic valve regurgitation. Tricuspid Valve There is no tricuspid valve regurgitation. Tricuspid regurgitation envelope is inadequate for calculation of right ventricular systolic pressure. Great Vessels The asc aorta and aortic arch are normal in size. Venous The inferior vena cava is normal in size and collapses greater than 50% with inspiration. Pericardium/Pleural There is no evidence of pericardial effusion. Prior Study Comparison No prior study available for comparison. Recommendations, Care & Conclusions No obvious valvular pathology seen on this study. Measurements 2D Linear Measurements IVSd: 1.09 0.6-0.9/0.6-1.0 cm LVIDd: 4.85 3.9-5.3/4.2-5.9 cm LVIDd Index: 2.14 2.4-3.2/2.2-3.1 cm/m2 LVIDs: 2.63 2.0-3.6 cm LVPWd: 1.06 0.7-1.1 cm LA Diam: 3.70 2.7-3.8/3.0-4.0 cm LAIDs Index: 1.63 1.5-2.3 cm/m2 LV Mass: 238.07 67-162/88-224 g LV Mass Index: 104.88 43-95/49-115 g/m2 LVOT Diam: 2.00 3.0+(-)1.3 cm 2D Systolic Function EF 4C: 54.80 >55% EF 2C: 64.20 >55% EF BiP: 58.30 >55% Mitral Valve MV Pk E: 1.00 MV PK A: 0.45 MV Decel Time: 228.00 E/A: 2.20 E'Lateral: 11.40 E'Medial: 9.36 E/E' Med: 10.70 E/E' Lat: 8.80 PHT: 67.00 MVA PHT: 3.28 Decel Camas: 4.40 Aortic Valve AoV Pk German: 1.16 AoV Mn German: 0.92 AoV VTI: 0.27 AoV Pk Grad: 5.00 Aov Mn Grad: 4.00 DAVID Cont.VTI: 2.48 LVOT LVOT Pk German: 0.98 LVOT Mn German: 0.58 LVOT VTI: 0.22 LVOT Pk Grad: 4.00 LVOT Mn Grad: 2.00 LVOT Diam: 2.00 LVOT Area: 3.14 Diastolic Function MV Pk E: 1.00 MV Pk A: 0.45 E/A: 2.20 E'Medial: 9.36 E/E' Med: 10.70 E' Laterial: 11.40 E/E' Lat: 8.80 Right Ventricle TAPSE (mm): 20.40 TVS' German: 12.40 Tricuspid Valve RA Press: 3.00 Great Vessels Aorta Sinus of Valsalva: 3.60 2.0-3.[address] Ridge: 3.16 1.7-3.4 cm Ao Asc: 3.00 2.1-3.4 cm Ao Arch: 2.70 Updated in Other Vendor System with Status of Final Kurt Flores MD electronically signed on 05/05/2022 12:43:00 PM with status of Final
== END ==
LOC: HO.CARD 10:04
PROVIDERS: PCP Internal Medicine; Visit Provider Internal Medicine Cardiovascular Disease
DX: R07.9 Chest pain, unspecified (principal)
CPT/HCPCS: 93306

== ENCOUNTER 2022-06-09 12:14 | Outpatient (REF) | payer OTHER, SELFPAY ==
[2022-06-17 14:52] LABS: Testosterone, Free 88.7 pg/mL (35.0-155.0); Testosterone, Total 371 ng/dL (250-1100)
== END 2022-06-09 12:15 | disposition home or self-care (01) ==
LOC: HO.LAB 12:14
PROVIDERS: PCP Internal Medicine; Visit Provider Urology
DX: E29.1 Testicular hypofunction (principal); E34.9 Endocrine disorder, unspecified
CPT/HCPCS: 36415; 84402; 84403

== ENCOUNTER → 2022-08-18 13:35 | Outpatient (BNVA) | payer OTHER, SELFPAY | PROVIDERS: PCP Internal Medicine; Referring Provider Internal Medicine; Visit Provider Internal Medicine Cardiovascular Disease | DX: R07.9 Chest pain, unspecified (principal); K21.9 Gastro-esophageal reflux disease without esophagitis; I10 Essential (primary) hypertension | CPT/HCPCS: 99212 ==

== ENCOUNTER → 2022-09-03 07:35 | Outpatient (REF) | payer OTHER, SELFPAY ==
--- NOTE | 2022-09-03 07:39 | CA_ITS ---
Acquisition Time: 2022-09-03 08:02:21 Total Exercise Time: 00:09:26 Test Indications: CP, HTN Medications: SEE CHART Protocol: ALEX Max HR: 150 BPM 84% of Pred: 177 BPM Max BP: 138/064 mmHG Max Work Load: 10.7 METS Exercise stress test with exercise 9 min 26 sec of Alex protocol, achieving 85% MPHR, with fatigue and need to stop, with mild sob, mild left upper/lateral chest tightness that is worse with palpation of the area, with normotensive response to exercise, without EKG changes meeting criteria for ischemia. In recovery his breathing normalized and chest tightness improved however still had tenderness. Test reviewed with Dr Flores Referred By: Mario Mcdowell Overread By: JENN MARADIAGA
== END ==
LOC: HO.CARD 07:35
PROVIDERS: PCP Internal Medicine; Visit Provider Internal Medicine Cardiovascular Disease
DX: R07.9 Chest pain, unspecified (principal)
CPT/HCPCS: 93017

== ENCOUNTER → 2022-09-23 13:40 | Outpatient (BNVA) | payer OTHER, SELFPAY | PROVIDERS: PCP Internal Medicine; Referring Provider Internal Medicine; Visit Provider Nurse Practitioner Family | DX: R07.9 Chest pain, unspecified (principal); I10 Essential (primary) hypertension; E66.9 Obesity, unspecified; G47.30 Sleep apnea, unspecified; Z68.35 Body mass index [BMI] 35.0-35.9, adult | CPT/HCPCS: 99212 ==

== ENCOUNTER → 2023-02-24 10:46 | Outpatient (BNVA) | payer OTHER, SELFPAY | PROVIDERS: PCP Internal Medicine; Visit Provider Nurse Practitioner Family | DX: G47.30 Sleep apnea, unspecified (principal); G47.10 Hypersomnia, unspecified; E66.9 Obesity, unspecified; Z68.34 Body mass index [BMI] 34.0-34.9, adult | CPT/HCPCS: 99202 ==

== ENCOUNTER 2023-02-25 18:03 | Emergency (ER) | payer OTHER, SELFPAY ==
--- NOTE | ~2023-02-25 | CT_ITS ---
CT head/brain wo IV con CLINICAL INFORMATION: Reason for Exam pain COMPARISON: No prior CT scan available for comparison. TECHNIQUE: Department standard protocol. This CT examination was performed using dose optimization techniques as appropriate, variously including the following: *Automated exposure control *Adjustment of mA and/or kV according to patient size (this includes techniques or standardized protocols for targeted exams where dose is matched to indication/reason for exam; i.e. extremities or head) *Use of iterative reconstruction technique DLP: 671 mGy-cm FINDINGS: CEREBRAL HEMISPHERES: There is no evidence of intra-axial or extra-axial mass, hemorrhage or acute infarct. BRAIN PARENCHYMA: Normal garcia-white matter differentiation. SUBDURAL SPACE: No bleed. BASAL GANGLIA AND PINEAL GLAND: Unremarkable VENTRICLES: Symmetric and normal in size. CEREBELLUM AND BRAINSTEM: No space-occupying mass, hemorrhage or acute infarct. CEREBELLOPONTINE ANGLES: No lesion found. ORBITS: No intraorbital mass. VESSELS: Unremarkable SKULL BASE: Unremarkable INCLUDED SINUSES AT SKULL BASE: Clear SKULL AND SKIN: No fracture or bone lesion found. CT/CT head/brain wo IV con IMPRESSION: No CT evidence of intracranial space-occupying mass, bleed or infarct. If patient remain symptomatic consider correlation with follow-up MRI/MRA.
--- NOTE | ~2023-02-25 | XR_ITS ---
EXAMINATION: XR CHEST CLINICAL INFORMATION: Chest pain and shortness of breath COMPARISON: Chest x-ray on 04/11/2021 TECHNIQUE: 2 views of the chest were obtained. FINDINGS: No significant abnormality is noted involving the heart, lungs, mediastinum, bony thorax or soft tissues. XR/XR chest 2V IMPRESSION: Unremarkable examination.
--- NOTE | 2023-02-25 18:06 | ECG_ITS ---
Test Reason : CP Blood Pressure : / mmHG Vent. Rate : 097 BPM Atrial Rate : 097 BPM P-R Int : 182 ms QRS Dur : 090 ms QT Int : 346 ms P-R-T Axes : 049 087 042 degrees QTc Int : 439 ms Sinus rhythm with Premature supraventricular complexes Otherwise normal ECG When compared with ECG of 09-JAN-2022 12:13, Premature supraventricular complexes are now Present Vent. rate has increased BY 36 BPM QT has lengthened Referred By: Rachel Barker Electronically Signed By:James Diez
[2023-02-25 18:19] LABS: MANUAL DIFF FLAG NO
[2023-02-25 18:20] VITALS: BP 150/85; PULSE 96; RESP 18; TEMP 37.2; O2SAT 96; BMI 34.6
--- NOTE | 2023-02-25 18:20 | ED.CHESTPAIN ---
HPI - Chest Pain General Chief Complaint: Headache Stated Complaint: chest pain Time Seen by Provider: 02/25/23 18:37 Related Data Home Medications Medication Instructions Recorded Confirmed omeprazole 40 mg capsule,delayed 40 mg PO DAILY PRN 08/18/22 09/23/22 release Previous Rx's Medication Instructions Recorded calcitriol 0.25 mcg capsule 0.25 mcg PO DAILY 90 days #90 caps 11/27/21 famotidine 40 mg tablet 40 mg PO BEDTIME #30 tabs 12/13/21 testosterone 30 mg/actuation (1.5 2 pump topical DAILY 28 days #90 mL 01/22/22 mL) transderm solution metered pump docusate sodium 100 mg capsule 100 mg PO DAILY #90 caps 02/17/22 (Colace) methylcellulose (laxative) 500 mg 500 mg PO DAILY #90 tabs 02/17/22 tablet (Citrucel) amoxicillin 500 mg capsule 1,000 mg PO Q12H #40 caps 02/25/23 fluticasone propionate 50 2 spray intranasal DAILY #16 grams 02/25/23 mcg/actuation nasal spray,suspension (Flonase Allergy Relief) ibuprofen 800 mg tablet 800 mg PO TID PRN pain #30 tabs 02/25/23 loratadine 10 mg tablet 10 mg PO DAILY PRN allergic 02/25/23 symptoms #30 tabs Allergies Allergy/AdvReac Type Severity Reaction Status Date / Time barium sulfate AdvReac Intermediate inadequate Verified 01/21/23 15:09 response trazodone AdvReac Intermediate dry mouth, Verified 01/21/23 15:09 vomiting PMFSH Past Medical History Medical History Abnormal ejaculation Bleeding hemorrhoids Chest pain Class 2 obesity with body mass index (BMI) of 38.0 to 38.9 in adult Cough Family history of colon cancer Hemorrhoids that prolapse with straining and require manual replacement back inside anal canal Hypovitaminosis D Obese Personal history of COVID-19 Physical exam Rectal bleeding Swollen R ankle Testicular pain Testosterone deficiency Transaminitis Surgical History H/O hemorrhoidectomy History of appendectomy History of colonoscopy History of incision and drainage Family History Family History Father Hypertension Stroke Diabetes Mother Hypertension Diabetes Paternal Grandfather Cancer Paternal Aunt Cancer Brother Cancer, Onset Age: 52 Sister No problems noted. 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 He also reports left sided, nonradiating stabbing chest pain for the last 25 minutes. Mild SOB as well. BP in triage, 150/85. He is not on antihypertensive medications. gave him tylenol at home. Plan: EKG, lab workup, CXR Reevaluation(s) Reevaluation #1: see Dr. Payne's note for full assessment and plan Medical Decision Making Lab Data 02/25/23 18:14 02/25/23 18:14 Labs: Lab Results 02/25/23 02/25/23 02/25/23 Range/Units 18:14 18:14 18:14 WBC 15.5 H (4.8-10.8) X10*3/uL RBC 5.06 (4.60-5.80) X10*6/uL Hgb 14.4 (14.0-18.0) g/dl Hct 42.6 (42.0-52.0) % MCV 84.2 (80.0-98.0) fL MCH 28.5 (27.0-33.0) pg MCHC 33.8 (31.0-36.0) g/dl RDW 12.4 (11.0-16.0) % Plt Count 310 (160-400) X10*3/uL MPV 9.8 (9.4-12.4) fL Immature Gran % (Auto) 1.2 H (0.0-0.4) % Neut % (Auto) 71.6 (45-73) % Lymph % (Auto) 19.3 L (20-40) % Starke % (Auto) 7.0 (2-11) % Eos % (Auto) 0.6 (0-4) % Baso % (Auto) 0.3 (0-2) % Lymph # (Auto) 3.0 (1.2-4.9) X10*3/uL Starke # (Auto) 1.1 (0.1-1.2) X10*3/uL Eos # (Auto) 0.1 (0.0-0.4) X10*3/uL Baso # (Auto) 0.0 (0.0-0.2) X10*3/uL Abs Immat Gran (auto) 0.18 H (0.00-0.03) X10*3/uL Absolute Neuts (auto) 11.1 H (2.0-8.3) x10*3/uL Absolute Nucleated RBC 0.000 (0.0-0.012) X10*3/uL Nucleated RBC % (auto) 0.0 (0.0-0.2) /100WBC Sodium 139 (135-145) mmol/L Potassium 3.7 D (3.3-5.1) mmol/L Chloride 104 (96-108) mmol/L Carbon Dioxide 26 (22-29) mmol/L Anion Gap 13 (12-20) BUN 13 (9-16) mg/dL Creatinine 0.95 (0.5-1.4) mg/dL Estim Creat Clear Calc 122.8 Estimated GFR > 60 Random Glucose 219 H (60-115) mg/dL Calcium 9.2 (8.4-10.2) mg/dL Magnesium 1.9 (1.6-2.6) mg/dL Total Bilirubin 0.5 (0.0-1.0) mg/dL Direct Bilirubin 0.1 (0.0-0.5) mg/dL AST 23 (5-37) U/L ALT 28 (0-40) U/L Alkaline Phosphatase 141 H (39-117) U/L Troponin I High Sens 4.1 (<3.5-35.0) ng/L B-Natriuretic Peptide (<100) pg/mL Total Protein 6.8 (6.5-8.0) g/dL Albumin 4.0 (3.5-5.0) g/dL 02/25/23 Range/Units 18:14 WBC (4.8-10.8) X10*3/uL RBC (4.60-5.80) X10*6/uL Hgb (14.0-18.0) g/dl Hct (42.0-52.0) % MCV (80.0-98.0) fL MCH (27.0-33.0) pg MCHC (31.0-36.0) g/dl RDW (11.0-16.0) % Plt Count (160-400) X10*3/uL MPV (9.4-12.4) fL Immature Gran % (Auto) (0.0-0.4) % Neut % (Auto) (45-73) % Lymph % (Auto) (20-40) % Starke % (Auto) (2-11) % Eos % (Auto) (0-4) % Baso % (Auto) (0-2) % Lymph # (Auto) (1.2-4.9) X10*3/uL Starke # (Auto) (0.1-1.2) X10*3/uL Eos # (Auto) (0.0-0.4) X10*3/uL Baso # (Auto) (0.0-0.2) X10*3/uL Abs Immat Gran (auto) (0.00-0.03) X10*3/uL Absolute Neuts (auto) (2.0-8.3) x10*3/uL Absolute Nucleated RBC (0.0-0.012) X10*3/uL Nucleated RBC % (auto) (0.0-0.2) /100WBC Sodium (135-145) mmol/L Potassium (3.3-5.1) mmol/L Chloride (96-108) mmol/L Carbon Dioxide (22-29) mmol/L Anion Gap (12-20) BUN (9-16) mg/dL Creatinine (0.5-1.4) mg/dL Estim Creat Clear Calc Estimated GFR Random Glucose (60-115) mg/dL Calcium (8.4-10.2) mg/dL Magnesium (1.6-2.6) mg/dL Total Bilirubin (0.0-1.0) mg/dL Direct Bilirubin (0.0-0.5) mg/dL AST (5-37) U/L ALT (0-40) U/L Alkaline Phosphatase (39-117) U/L Troponin I High Sens (<3.5-35.0) ng/L B-Natriuretic Peptide < 10 (<100) pg/mL Total Protein (6.5-8.0) g/dL Albumin (3.5-5.0) g/dL Discharge Plan Discharge Clinical Impression: Sinusitis Patient Disposition: Home, Self-Care Prescriptions: New amoxicillin 500 mg capsule 1,000 mg PO Q12H Qty: 40 0RF fluticasone propionate [Flonase Allergy Relief] 50 mcg/actuation spray,suspension 2 spray intranasal DAILY Qty: 16 0RF Rx Instructions: administer into each nostril ibuprofen 800 mg tablet 800 mg PO TID PRN (Reason: pain) Qty: 30 0RF loratadine 10 mg tablet 10 mg PO DAILY PRN (Reason: allergic symptoms) Qty: 30 0RF No Action calcitriol 0.25 mcg capsule 0.25 mcg PO DAILY 90 Days Qty: 90 3RF testosterone 30 mg/actuation (1.5 mL) solution in metered pump w/janice 2 pump topical DAILY 28 Days Qty: 90 3RF Rx Instructions: apply 1 pump under each arm daily - 2 pumps total Citrucel 500 mg tablet 500 mg PO DAILY Qty: 90 2RF Rx Instructions: take it with full glass of water docusate sodium [Colace] 100 mg capsule 100 mg PO DAILY Qty: 90 4RF omeprazole 40 mg capsule,delayed release(DR/EC) 40 mg PO DAILY PRN Rx Instructions: Wilmer puneet capsula cada manana media hora antes del desayuno. famotidine 40 mg tablet 40 mg PO BEDTIME Qty: 30 3RF Interventions: ED Discharge Assessment Last Done: 02/25/23 21:07 Discharge Date/Time: 02/25/23 21:22
[2023-02-25 18:24] LABS: Basophils Percent Auto 0.3 % (0-2); Eosinophils Absolute Auto 0.1 X10*3/uL (0.0-0.4); Eosinophils Percent Auto 0.6 % (0-4); Hematocrit 42.6 % (42.0-52.0); Hemoglobin 14.4 g/dl (14.0-18.0); Imm Gran Abs Auto 0.18 X10*3/uL (0.00-0.03); Imm Gran Pct Auto 1.2 % (0.0-0.4); Lymphocytes Percent Auto 19.3 % (20-40); Mean Corpuscular HGB Conc 33.8 g/dl (31.0-36.0); Mean Corpuscular Hemoglobin 28.5 pg (27.0-33.0); Mean Corpuscular Volume 84.2 fL (80.0-98.0); Mean Platelet Volume 9.8 fL (9.4-12.4); Monocytes Absolute Auto 1.1 X10*3/uL (0.1-1.2); Neutrophils Absolute Auto 11.1 x10*3/uL (2.0-8.3); Neutrophils Percent Auto 71.6 % (45-73); Platelet Count 310 X10*3/uL (160-400); Red Blood Count 5.06 X10*6/uL (4.60-5.80); Red Cell Distribution Width 12.4 % (11.0-16.0); White Blood Count 15.5 X10*3/uL (4.8-10.8)
[2023-02-25 18:52] LABS: Troponin-I High Sensitivity 4.1 ng/L (<3.5-35.0)
[2023-02-25 18:53] LABS: Alanine Aminotransferase 28 U/L (0-40); Alkaline Phosphatase 141 U/L (39-117); Anion Gap 13 (12-20); Aspartate Amino Transferase 23 U/L (5-37); Bilirubin Direct 0.1 mg/dL (0.0-0.5); Bilirubin Total 0.5 mg/dL (0.0-1.0); Blood Urea Nitrogen 13 mg/dL (9-16); Calcium 9.2 mg/dL (8.4-10.2); Carbon Dioxide 26 mmol/L (22-29); Chloride 104 mmol/L (96-108); Creatinine Clr Calc Pharmacy 122.8; Estimated Glomerular Filt Rate > 60; Glucose Random 219 mg/dL (60-115); Magnesium 1.9 mg/dL (1.6-2.6); Potassium 3.7 mmol/L (3.3-5.1); Sodium 139 mmol/L (135-145); Total Protein 6.8 g/dL (6.5-8.0)
[2023-02-25 19:08] LABS: B Type Natriuretic Peptide < 10 pg/mL (<100)
--- NOTE | 2023-02-25 19:14 | ED_ITS ---
HPI - General Adult General Chief complaint: Headache Stated complaint: chest pain Time Seen by Provider: 02/25/23 18:37 Source: patient and family History of Present Illness HPI narrative: Patient with headache and chest pain that started today. He states he has been having issues with his sinuses for a long time. Today had severe headache and chest pain. Pain was in his frontal sinus area and left maxillary sinus area and radiated to the back of his head. Symptoms have since subsided considerably. He also had some chest pain which was left-sided at the time. Sharp in worse to move breathe in touch. He has never had these symptoms before. Chest pain is much better now without intervention. He states is blood pressure at home was very high 190/108. No nausea vomiting. No abdominal symptoms. No recent fevers or chills. No prior diagnosis of sinusitis. Related Data Home Medications Medication Instructions Recorded Confirmed omeprazole 40 mg capsule,delayed 40 mg PO DAILY PRN 08/18/22 09/23/22 release Previous Rx's Medication Instructions Recorded calcitriol 0.25 mcg capsule 0.25 mcg PO DAILY 90 days #90 caps 11/27/21 famotidine 40 mg tablet 40 mg PO BEDTIME #30 tabs 12/13/21 testosterone 30 mg/actuation (1.5 2 pump topical DAILY 28 days #90 mL 01/22/22 mL) transderm solution metered pump docusate sodium 100 mg capsule 100 mg PO DAILY #90 caps 02/17/22 (Colace) methylcellulose (laxative) 500 mg 500 mg PO DAILY #90 tabs 02/17/22 tablet (Citrucel) amoxicillin 500 mg capsule 1,000 mg PO Q12H #40 caps 02/25/23 fluticasone propionate 50 2 spray intranasal DAILY #16 grams 02/25/23 mcg/actuation nasal spray,suspension (Flonase Allergy Relief) ibuprofen 800 mg tablet 800 mg PO TID PRN pain #30 tabs 02/25/23 loratadine 10 mg tablet 10 mg PO DAILY PRN allergic 02/25/23 symptoms #30 tabs Allergies Allergy/AdvReac Type Severity Reaction Status Date / Time barium sulfate AdvReac Intermediate inadequate Verified 01/21/23 15:09 response trazodone AdvReac Intermediate dry mouth, Verified 01/21/23 15:09 vomiting Review of Systems Constitutional: Comments: No fevers or chills or malaise ENT: Comments: Sinus symptoms as described. Positive rhinorrhea. Cardiovascular: Comments: Chest pain is described Respiratory: Comments: No cough or dyspnea Gastrointestinal: Comments: No abdominal pain. No nausea or vomiting or diarrhea Neurologic: Comments: No focal weakness PMFSH Past Medical History Medical History Abnormal ejaculation Bleeding hemorrhoids Chest pain Class 2 obesity with body mass index (BMI) of 38.0 to 38.9 in adult Cough Family history of colon cancer Hemorrhoids that prolapse with straining and require manual replacement back inside anal canal Hypovitaminosis D Obese Personal history of COVID-19 Physical exam Rectal bleeding Swollen R ankle Testicular pain Testosterone deficiency Transaminitis Surgical History H/O hemorrhoidectomy History of appendectomy History of colonoscopy History of incision and drainage Family History Family History Father Hypertension Stroke Diabetes Mother Hypertension Diabetes Paternal Grandfather Cancer Paternal Aunt Cancer Brother Cancer, Onset Age: 52 Sister No problems noted. 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 No acute distress. Vital signs stable. Moderately hypertens gelacio on arrival. During exam blood pressure 130/86 HENMT Other: Normocephalic atraumatic. [id number] tenderness to percussion over frontal and left maxillary sinus. No meningismus. Chest Other: Left chest wall tender to palpation. Reproduces symptoms Resp Other: Clear and equal bilaterally without wheezes rales or rhonchi Cardio Other: Regular rate and rhythm without murmurs rubs or gallops GI Other: Soft nontender nondistended. Normoactive bowel sounds Skin Other: Warm pink and dry without rash Neuro Other: Neuro exam is nonfocal. Ambulates without difficulty Extrem Other: No calf tenderness. No pedal edema Medical Decision Making Medical Decision Making MDM Narrative: Patient with hypertensive episode prior to arrival in the setting of severe headache and chest pain. Improved spontaneously without treatment. Likely pain response. Differential diagnosis would include intracranial hemorrhage, sinusitis, musculoskeletal chest pain, ischemic chest pain. Hypertensive emergency less likely as patient's blood pressures improved spontaneously. Also unlikely to represent aortic pathology given the above symptoms with improvement now. 19:20. Chest x-ray on my interpretation is normal with a normal mediastinum and aortic knob without evidence of infiltrate or pulmonary edema. Await Radiology interpretation. Lab work significant for CBC which shows white count of 15.5 1000. Positive immature granulocytes. Possibly infectious in origin. Chemistries are normal. Creatinine is normal. Glucose is mildly elevated to 219. No evidence of acidosis. LFTs are normal. Alk Freeman is mildly elevated 141. Troponin is normal as is beta natriuretic peptide. Will order CT scan of brain and head. 20:54. CT scan shows no obvious abnormalities. Given elevated white count in light of chronic sinus symptoms with now acute worsening, will start patient on a course of antibiotics. Will also give prescription for Flonase. Lab Data 02/25/23 18:14 02/25/23 18:14 Labs: Lab Results 02/25/23 02/25/23 02/25/23 Range/Units 18:14 18:14 18:14 WBC 15.5 H (4.8-10.8) X10*3/uL RBC 5.06 (4.60-5.80) X10*6/uL Hgb 14.4 (14.0-18.0) g/dl Hct 42.6 (42.0-52.0) % MCV 84.2 (80.0-98.0) fL MCH 28.5 (27.0-33.0) pg MCHC 33.8 (31.0-36.0) g/dl RDW 12.4 (11.0-16.0) % Plt Count 310 (160-400) X10*3/uL MPV 9.8 (9.4-12.4) fL Immature Gran % (Auto) 1.2 H (0.0-0.4) % Neut % (Auto) 71.6 (45-73) % Lymph % (Auto) 19.3 L (20-40) % Hendricks % (Auto) 7.0 (2-11) % Eos % (Auto) 0.6 (0-4) % Baso % (Auto) 0.3 (0-2) % Lymph # (Auto) 3.0 (1.2-4.9) X10*3/uL Hendricks # (Auto) 1.1 (0.1-1.2) X10*3/uL Eos # (Auto) 0.1 (0.0-0.4) X10*3/uL Baso # (Auto) 0.0 (0.0-0.2) X10*3/uL Abs Immat Gran (auto) 0.18 H (0.00-0.03) X10*3/uL Absolute Neuts (auto) 11.1 H (2.0-8.3) x10*3/uL Absolute Nucleated RBC 0.000 (0.0-0.012) X10*3/uL Nucleated RBC % (auto) 0.0 (0.0-0.2) /100WBC Sodium 139 (135-145) mmol/L Potassium 3.7 D (3.3-5.1) mmol/L Chloride 104 (96-108) mmol/L Carbon Dioxide 26 (22-29) mmol/L Anion Gap 13 (12-20) BUN 13 (9-16) mg/dL Creatinine 0.95 (0.5-1.4) mg/dL Estim Creat Clear Calc 122.8 Estimated GFR > 60 Random Glucose 219 H (60-115) mg/dL Calcium 9.2 (8.4-10.2) mg/dL Magnesium 1.9 (1.6-2.6) mg/dL Total Bilirubin 0.5 (0.0-1.0) mg/dL Direct Bilirubin 0.1 (0.0-0.5) mg/dL AST 23 (5-37) U/L ALT 28 (0-40) U/L Alkaline Phosphatase 141 H (39-117) U/L Troponin I High Sens 4.1 (<3.5-35.0) ng/L B-Natriuretic Peptide (<100) pg/mL Total Protein 6.8 (6.5-8.0) g/dL Albumin 4.0 (3.5-5.0) g/dL 02/25/23 Range/Units 18:14 WBC (4.8-10.8) X10*3/uL RBC (4.60-5.80) X10*6/uL Hgb (14.0-18.0) g/dl Hct (42.0-52.0) % MCV (80.0-98.0) fL MCH (27.0-33.0) pg MCHC (31.0-36.0) g/dl RDW (11.0-16.0) % Plt Count (160-400) X10*3/uL MPV (9.4-12.4) fL Immature Gran % (Auto) (0.0-0.4) % Neut % (Auto) (45-73) % Lymph % (Auto) (20-40) % Hendricks % (Auto) (2-11) % Eos % (Auto) (0-4) % Baso % (Auto) (0-2) % Lymph # (Auto) (1.2-4.9) X10*3/uL Hendricks # (Auto) (0.1-1.2) X10*3/uL Eos # (Auto) (0.0-0.4) X10*3/uL Baso # (Auto) (0.0-0.2) X10*3/uL Abs Immat Gran (auto) (0.00-0.03) X10*3/uL Absolute Neuts (auto) (2.0-8.3) x10*3/uL Absolute Nucleated RBC (0.0-0.012) X10*3/uL Nucleated RBC % (auto) (0.0-0.2) /100WBC Sodium (135-145) mmol/L Potassium (3.3-5.1) mmol/L Chloride (96-108) mmol/L Carbon Dioxide (22-29) mmol/L Anion Gap (12-20) BUN (9-16) mg/dL Creatinine (0.5-1.4) mg/dL Estim Creat Clear Calc Estimated GFR Random Glucose (60-115) mg/dL Calcium (8.4-10.2) mg/dL Magnesium (1.6-2.6) mg/dL Total Bilirubin (0.0-1.0) mg/dL Direct Bilirubin (0.0-0.5) mg/dL AST (5-37) U/L ALT (0-40) U/L Alkaline Phosphatase (39-117) U/L Troponin I High Sens (<3.5-35.0) ng/L B-Natriuretic Peptide < 10 (<100) pg/mL Total Protein (6.5-8.0) g/dL Albumin (3.5-5.0) g/dL Discharge Plan Discharge Clinical Impression: Sinusitis Patient Disposition: Home, Self-Care Prescriptions: New amoxicillin 500 mg capsule 1,000 mg PO Q12H Qty: 40 0RF fluticasone propionate [Flonase Allergy Relief] 50 mcg/actuation spray,suspension 2 spray intranasal DAILY Qty: 16 0RF Rx Instructions: administer into each nostril ibuprofen 800 mg tablet 800 mg PO TID PRN (Reason: pain) Qty: 30 0RF loratadine 10 mg tablet 10 mg PO DAILY PRN (Reason: allergic symptoms) Qty: 30 0RF No Action calcitriol 0.25 mcg capsule 0.25 mcg PO DAILY 90 Days Qty: 90 3RF testosterone 30 mg/actuation (1.5 mL) solution in metered pump w/janice 2 pump topical DAILY 28 Days Qty: 90 3RF Rx Instructions: apply 1 pump under each arm daily - 2 pumps total Citrucel 500 mg tablet 500 mg PO DAILY Qty: 90 2RF Rx Instructions: take it with full glass of water docusate sodium [Colace] 100 mg capsule 100 mg PO DAILY Qty: 90 4RF omeprazole 40 mg capsule,delayed release(DR/EC) 40 mg PO DAILY PRN Rx Instructions: Wilmer puneet capsula cada manana media hora antes del desayuno. famotidine 40 mg tablet 40 mg PO BEDTIME Qty: 30 3RF
[2023-02-25 19:42] VITALS: BP 136/76; PULSE 82; RESP 16; TEMP 37; O2SAT 100
[2023-02-25 20:07] VITALS: BP 149/83; PULSE 81; RESP 20; O2SAT 97
== END 2023-02-25 21:22 | disposition home or self-care (01) ==
PROVIDERS: Physician Assistant; Emergency Provider Emergency Medicine; PCP Internal Medicine
DX: J32.9 Chronic sinusitis, unspecified (principal); R07.89 Other chest pain; R51.9 Headache, unspecified; R06.02 Shortness of breath; Z87.891 Personal history of nicotine dependence; Z79.899 Other long term (current) drug therapy
CPT/HCPCS: 36415; 70450; 71046; 80048; 80076; 83735; 83880; 84484; 85025; 93005; 99284; 99285

== ENCOUNTER 2023-06-02 11:33 | Outpatient (AMB) | payer OTHER, SELFPAY ==
--- NOTE | 2023-06-02 11:34 | MHC.OFFVIS ---
Intake Vital Signs 06/02/23 11:35 Height 5 ft 10 in BP 128/74 Blood Pressure Location Rt brachial Position Sitting Pulse 68 Pulse Source Pulse Oximeter Pulse Oximetry (%) 98 Oxygen Delivery Method Room Air Intake Visit Reasons: 3 mnts f/u for sleep - Confirmed Intake Note: Patient presents for 3 month follow up Allergies barium sulfate Adverse Reaction (Intermediate, Verified 06/02/23 11:36) inadequate response trazodone Adverse Reaction (Intermediate, Verified 06/02/23 11:36) dry mouth, vomiting HPI HPI Comments History of Present Illness Details 42 y/o male patient presents for follow up of sleep study. The home sleep study result was significant for mild degree of sleep apnea. The AHI was 8/hr and oxygen becca was 83%, snoring for 20% of the total sleep time. Pt started on APAP 5-15cm2O. The CPAP compliance and therapy response (05/03/23-06/01/23) reviewed. The usage days 93% and the average usage hours 5hrs. The median pressure was 7.3 and and AHI was 0.3/hr. Pt reports his sleep quality has improved, less snoring and wakes up refreshed. Daytime tiredness also has improved. [facility], [facility] Medical History Abnormal ejaculation Bleeding hemorrhoids Chest pain Class 2 obesity with body mass index (BMI) of 38.0 to 38.9 in adult Cough Family history of colon cancer Hemorrhoids that prolapse with straining and require manual replacement back inside anal canal Hypovitaminosis D Obese Personal history of COVID-19 Physical exam Rectal bleeding Swollen R ankle Testicular pain Testosterone deficiency Transaminitis Surgical History H/O hemorrhoidectomy History of appendectomy History of colonoscopy History of incision and drainage Family History Father Hypertension Stroke Diabetes Mother Hypertension Diabetes Paternal Grandfather Cancer Paternal Aunt Cancer Brother Cancer, Onset Age: 52 Sister No problems noted. 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 Current occupational exposures/hazards: No Cognitive needs: No Hearing needs: No Vision needs: No Review of Systems Const All systems reviewed & are unremarkable except as noted in HPI and below ENT Reports Normal hearing present Neuro Reports Normal hearing present Physical Exam Vital Signs: Last Vital Signs Pulse 68 06/02/23 11:35 BP 128/74 06/02/23 11:35 Pulse Ox 98 06/02/23 11:35 Oxygen Delivery Method Room Air 06/02/23 11:35 Const General: cooperative Nutritional Appearance: obese Orientation/consciousness: patient oriented x3 Limitations: language barrier (Serbian speaking ) Neck Neck: Yes full ROM and Yes supple Resp Effort & Inspection: normal respiratory effort and able to speak in complete sentences Neuro General: patient oriented x3 and gait normal Cranial nerves: Yes Bilaterally intact EOM present, Yes Normal facial strength present, Yes Midline tongue present, Yes Symmetric palate elevation present, Yes Normal hearing present, Yes Ability to bilaterally rotate head present and Yes Ability to bilaterally elevate shoulders present Cognition (Neuro): normal cognition Gait exam (Neuro): Normal gait present Motor exam (neuro): 5/5 motor strength present throughout, Pronator motor function not present and no tremor noted Psych Appearance: grossly normal Mental Status: mental status grossly normal Speech and movement: Normal speech and movement present Affect: normal affect Attitude: cooperative Assessment & Plan Assessment & Plan (1) BUNNY on CPAP: Comment: Mild degree of sleep apnea. The AHI was 8/hr and oxygen becca was 83%. Code(s): G47.33 - Obstructive sleep apnea (adult) (pediatric) Plan Continue to use APAP [id number] as patient experiences good clinical effect, less snoring, wake up rested and and more energy during daytime. Stressed compliance, use CPAP nightly and more than 4 hrs. Clean mask and tubing regularly. Wt reduction advised. Coding Level of Care Code Est Pt Level 3 (06166) Diagnoses BUNNY on CPAP G47.33
[2023-06-02 11:35] VITALS: BP 128/74; PULSE 68; O2SAT 98
== END 2023-06-02 11:51 | disposition home or self-care (01) ==
LOC: HO.HSMC 11:33
PROVIDERS: PCP Internal Medicine; Visit Provider Nurse Practitioner Family
DX: G47.33 Obstructive sleep apnea (adult) (pediatric) (principal)
CPT/HCPCS: 99213

== ENCOUNTER → 2023-06-02 11:33 | Outpatient (BNVA) | payer OTHER, SELFPAY | PROVIDERS: PCP Internal Medicine; Visit Provider Nurse Practitioner Family | DX: G47.33 Obstructive sleep apnea (adult) (pediatric) (principal) | CPT/HCPCS: 99212 ==

== ENCOUNTER 2023-06-30 12:55 | Outpatient (AMB) | payer OTHER, SELFPAY ==
[2023-06-30 13:00] VITALS: BP 132/74; PULSE 67; BMI 36.3
--- NOTE | 2023-06-30 13:00 | MHC.OFFVIS ---
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 Today he reports that he has been doing very well since the start of CPAP. He reports improved daytime wakefulness, no shortness of breath. He no longer gets any chest discomfort. He is trying to increase his physical activity. No palpitations, presyncope, syncope, PND, orthopnea or edema. Significant other is present. [facility] Medical History Physical exam Chest pain Class 2 obesity with body mass index (BMI) of 38.0 to 38.9 in adult Hypovitaminosis D Testosterone deficiency Transaminitis Hemorrhoids that prolapse with straining and require manual replacement back inside anal canal Cough Swollen R ankle Testicular pain Bleeding hemorrhoids Personal history of COVID-19 Abnormal ejaculation Obese Family history of colon cancer Rectal bleeding Surgical History H/O hemorrhoidectomy History of colonoscopy History of incision and drainage History of appendectomy Family History Father Hypertension Stroke Diabetes Mother Hypertension Diabetes Paternal Grandfather Cancer Paternal Aunt Cancer Brother Cancer, Onset Age: 52 Sister No problems noted. 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 Current occupational exposures/hazards: No Cognitive needs: No Hearing needs: No Vision needs: No Review of Systems Const All systems reviewed & are unremarkable except as noted in HPI and below ENT Denies dizziness Card Denies chest pain, Denies chest pain at rest, Denies chest pain with activity, Denies rapid heart rate, Denies pedal edema, Denies edema, Denies leg edema, Denies lightheadedness, Denies palpitations, Denies dyspnea, Denies dyspnea on exertion and Denies orthopnea Resp Denies cough, Denies dyspnea and Denies dyspnea on exertion GI Denies hematochezia and Denies change in stool character Musc Denies abnormal gait, Denies limited range of motion, Denies muscle cramps, Denies muscle weakness, Denies numbness, Denies radiating pain into limb, Denies stiffness and Denies tingling Neuro Denies abnormal gait, Denies dizziness, Denies numbness and Denies tingling Endo Denies palpitations Physical Exam Vital Signs: Last Vital Signs Pulse 67 06/30/23 13:00 BP 132/74 06/30/23 13:00 BMI result Body Mass Index 36.3 Const General: cooperative, healthy appearing, comfortable and no acute distress Orientation/consciousness: patient oriented x3 Neck Neck: Yes normal visual inspection Resp Effort & Inspection: normal respiratory effort Auscultation: clear to auscultation bilaterally, no crackles, no rales, no rhonchi and no wheezes Cardio Jugular venous distension: no JVD Rate: regular rate Rhythm: regular rhythm Heart sounds: S1 normal heart sound present, S2 normal heart sound present, no gallops, no murmurs and no rubs Neuro General: patient oriented x3 Extrem General: Yes normal to inspection, No no pedal edema and No calf tenderness Psych Appearance: grossly normal Mental Status: mental status grossly normal Speech and movement: Normal speech and movement present Assessment & Plan Assessment & Plan (1) Chest pain: Code(s): R07.9 - Chest pain, unspecified Qualifiers: Chest pain type: precordial pain Qualified Code(s): R07.2 - Precordial pain Plan: Prior reports of atypical sounding left-sided chest discomfort. No exertional discomfort. His cardiac risk factors of obesity and borderline hypertension. He had an exercise stress test on 09/03/2022 showing exercise 9 minutes 26 seconds with atypical chest pain throughout the test, no EKG changes of ischemia. Echocardiogram done 05/05/2022 had shown EF 58% with a moderate increase in the RV. A home sleep study had been done on 04/28/2022 showing mild obstructive sleep apnea that was treated conservatively. On follow-up visit his chest discomfort had resolved. With his sleep apnea he was referred to sleep medicine and now uses a CPAP mask. He reports overall he is feeling much better since its use. He has no cardiac sounding symptoms. Discussed need for ongoing cardiac risk factor modification. Cardiology follow-up will be as needed. (2) HTN (hypertension): Code(s): I10 - Essential (primary) hypertension Qualifiers: Hypertension type: primary hypertension Qualified Code(s): I10 - Essential (primary) hypertension Plan: Notes indicate borderline hypertension. Blood pressure well controlled at present. He is not on antihypertensives. Discussed the benefits of weight loss and exercise as tolerated. Current BMI 36.3. (3) Obese: Code(s): E66.9 - Obesity, unspecified Qualifiers: Obesity type: due to excess calories Obesity classification: adult class 2 (BMI 35 - 39.9) Serious obesity comorbidity presence: unspecified whether serious comorbidity present Body mass index: BMI 36.0-36.9 Qualified Code(s): E66.09 - Other obesity due to excess calories; Z68.36 - Body mass index [BMI] 36.0-36.9, adult (4) Sleep apnea in adult: Code(s): G47.30 - Sleep apnea, unspecified Plan: Recent sleep study showing mild obstructive sleep apnea treated with conservative measures. His echocardiogram shows moderate increase in the RV cavity size, normal RV systolic function. This dilation may be as a result of his untreated sleep apnea and weight. He did undergo evaluation by Sleep Medicine and now has CPAP mask in use. He is feeling much better overall with CPAP. No daytime sleepiness and breathing is comfortable. He will continue to follow with sleep medicine. Coding Level of Care Code Est Pt Level 3 (67764) Diagnoses Precordial pain R07.2 Chest pain type: precordial pain Primary hypertension I10 Hypertension type: primary hypertension Class 2 obesity due to excess calories with body mass index (BMI) of 36.0 to 36.9 in adult, unspecified whether serious comorbidity present E66.09; Z68.36 Obesity type: due to excess calories Obesity classification: adult class 2 (BMI 35 - 39.9) Serious obesity comorbidity presence: unspecified whether serious comorbidity present Body mass index: BMI 36.0-36.9 Sleep apnea in adult G47.30 Time Spent (min) 22
== END 2023-06-30 13:22 | disposition home or self-care (01) ==
PROVIDERS: PCP Internal Medicine; Visit Provider Nurse Practitioner Family
DX: R07.2 Precordial pain (principal); I10 Essential (primary) hypertension; E66.09 Other obesity due to excess calories; Z68.36 Body mass index [BMI] 36.0-36.9, adult; G47.30 Sleep apnea, unspecified
CPT/HCPCS: 99213

== ENCOUNTER → 2023-06-30 12:55 | Outpatient (BNVA) | payer OTHER, SELFPAY | PROVIDERS: PCP Internal Medicine; Visit Provider Nurse Practitioner Family | DX: R07.2 Precordial pain (principal); I10 Essential (primary) hypertension; G47.30 Sleep apnea, unspecified; E66.09 Other obesity due to excess calories; Z68.36 Body mass index [BMI] 36.0-36.9, adult | CPT/HCPCS: 99212 ==

== ENCOUNTER 2023-12-01 11:06 | Outpatient (AMB) | payer OTHER, SELFPAY ==
--- NOTE | 2023-12-01 11:46 | MHC.OFFVIS ---
Intake Vital Signs 12/01/23 11:54 Height 5 ft 10 in Weight 251 lb BMI 36.0 BP 140/70 H Blood Pressure Location Lt brachial Position Sitting Pulse 58 Pulse Source Pulse Oximeter Pulse Oximetry (%) 98 Oxygen Delivery Method Room Air Intake Visit Reasons: 6 mnts f/u appt for sleep-CONF Intake Note: Patient presents for 6 month f/u. notice air liking out of mask when falls asleep. mask size xlarge and a large is to small. needs doctors note for work Allergies barium sulfate Adverse Reaction (Intermediate, Verified 12/01/23 11:53) inadequate response trazodone Adverse Reaction (Intermediate, Verified 12/01/23 11:53) dry mouth, vomiting HPI HPI Comments History of Present Illness Details 43 y/o male patient presents for follow up of BUNNY on CPAP. The home sleep study result was significant for mild degree of sleep apnea. The AHI was 8/hr and oxygen becca was 83%, snoring for 20% of the total sleep time. Pt is on CPAP at 17 cm2O. The CPAP compliance and therapy response (08/29/23-11/26/23) reviewed. The usage days 98% and the average usage hours 7 hrs. The residual AHI was 0.9/hr. Pt reports his sleep quality has improved, less snoring and wakes up refreshed. He sleeps more hours and rested. Daytime tiredness also has improved. He tried xlarge mask, he felt air leaking, but large size was too tight. [facility] Medical History Physical exam Chest pain Class 2 obesity with body mass index (BMI) of 38.0 to 38.9 in adult Hypovitaminosis D Testosterone deficiency Transaminitis Hemorrhoids that prolapse with straining and require manual replacement back inside anal canal Cough Swollen R ankle Testicular pain Bleeding hemorrhoids Personal history of COVID-19 Abnormal ejaculation Obese Family history of colon cancer Rectal bleeding Surgical History H/O hemorrhoidectomy History of colonoscopy History of incision and drainage History of appendectomy Family History Father Hypertension Stroke Diabetes Mother Hypertension Diabetes Paternal Grandfather Cancer Paternal Aunt Cancer Brother Cancer, Onset Age: 52 Sister No problems noted. Social History Housing: House Alcohol intake: former Patient Tobacco Use Status: Former Tobacco user Quit Date: 09/2020 Tobacco use type: Cigarette e-Cigarette/Vaping Use: Never Used Second Hand Smoke Exposure: No service: No Current occupational status: employed Current occupation: [employer] DISP[employer]ER Current occupational exposures/hazards: No Cognitive needs: No Hearing needs: No Vision needs: No Review of Systems Const All systems reviewed & are unremarkable except as noted in HPI and below ENT Reports Normal hearing present Neuro Reports Normal hearing present Physical Exam Vital Signs: Last Vital Signs Pulse 58 12/01/23 11:54 BP 140/70 H 12/01/23 11:54 Pulse Ox 98 12/01/23 11:54 Oxygen Delivery Method Room Air 12/01/23 11:54 BMI result Body Mass Index 36.0 Const General: cooperative Nutritional Appearance: obese Orientation/consciousness: patient oriented x3 Limitations: language barrier (Telugu speaking ) Neck Neck: Yes full ROM and Yes supple Resp Effort & Inspection: normal respiratory effort and able to speak in complete sentences Neuro General: patient oriented x3 and gait normal Cranial nerves: Yes Bilaterally intact EOM present, Yes Normal facial strength present, Yes Midline tongue present, Yes Symmetric palate elevation present, Yes Normal hearing present, Yes Ability to bilaterally rotate head present and Yes Ability to bilaterally elevate shoulders present Cognition (Neuro): normal cognition Gait exam (Neuro): Normal gait present Motor exam (neuro): 5/5 motor strength present throughout, Pronator motor function not present and no tremor noted Psych Appearance: grossly normal Mental Status: mental status grossly normal Speech and movement: Normal speech and movement present Affect: normal affect Attitude: cooperative Assessment & Plan Assessment & Plan (1) BUNNY on CPAP: Comment: Mild degree of sleep apnea. The AHI was 8/hr and oxygen becca was 83%. Code(s): G47.33 - Obstructive sleep apnea (adult) (pediatric) Plan Continue to use CPAP at 17 cmH@O as patient experiences good clinical effect, less snoring, wake up rested and and more energy during daytime. Stressed compliance, use CPAP nightly and more than 4 hrs. Clean mask and tubing regularly. Advised patient to try CPAP mask liner. Wt reduction advised. Coding Level of Care Code Est Pt Level 3 (83512) Diagnoses BUNNY on CPAP G47.33
[2023-12-01 11:54] VITALS: BP 140/70; PULSE 58; O2SAT 98; BMI 36.0
== END 2023-12-01 12:08 | disposition home or self-care (01) ==
PROVIDERS: PCP Internal Medicine; Visit Provider Nurse Practitioner Family
DX: G47.33 Obstructive sleep apnea (adult) (pediatric) (principal)
CPT/HCPCS: 99213

== ENCOUNTER → 2023-12-01 11:11 | Outpatient (BNVA) | payer OTHER, SELFPAY | PROVIDERS: PCP Internal Medicine; Visit Provider Nurse Practitioner Family | DX: G47.33 Obstructive sleep apnea (adult) (pediatric) (principal) | CPT/HCPCS: 99212 ==

== ENCOUNTER 2023-12-14 13:42 | Emergency (ER) | payer OTHER, SELFPAY ==
--- NOTE | ~2023-12-14 | XR_ITS ---
EXAMINATION: XR KNEE, RIGHT CLINICAL INFORMATION: Atraumatic right knee pain COMPARISON: None available. TECHNIQUE: Four views of the right knee. FINDINGS: There is loss of tricompartment joint space with periarticular spurring. No loose bodies or joint effusion seen no acute fracture or dislocation. XR/XR knee RT 4V IMPRESSION: Degenerative arthritic changes right knee. No visible acute fracture or dislocation seen.
[2023-12-14 14:21] VITALS: BP 142/94; PULSE 100; RESP 19; TEMP 36.6; O2SAT 96; BMI 35.6
--- NOTE | 2023-12-14 14:24 | ED.LOWEXIN ---
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 he is often bending on the knee and climbing stairs He has no fever no significant swelling denies any redness, he can bear weight on it and walk with a mild limp, denies any numbness or weakness there is no associated back pain no other complaints Denies any rash Related Data Previous Rx's ?Medication ?Instructions ?Recorded ibuprofen 600 mg tablet 600 mg PO Q6H PRN pain #20 tabs 12/14/23 cyclobenzaprine 10 mg tablet 10 mg PO TID PRN muscle spasm #14 01/14/24 tabs lidocaine 5 % topical patch 1 patch topical DAILY #15 ea 01/14/24 naproxen 500 mg tablet 500 mg PO BID PRN pain #20 tabs 01/14/24 Allergies Allergy/AdvReac Type Severity Reaction Status Date / Time barium sulfate AdvReac Intermediate inadequate Verified 08/01/24 10:42 response trazodone AdvReac Intermediate dry mouth, Verified 08/01/24 10:42 vomiting PMFSH Past Medical History Source: nursing notes reviewed Medical History Physical exam Chest pain Class 2 obesity with body mass index (BMI) of 38.0 to 38.9 in adult Hypovitaminosis D Testosterone deficiency Transaminitis Hemorrhoids that prolapse with straining and require manual replacement back inside anal canal Cough Swollen R ankle Testicular pain Bleeding hemorrhoids Personal history of COVID-19 Abnormal ejaculation Obese Family history of colon cancer Rectal bleeding Surgical History H/O hemorrhoidectomy History of colonoscopy History of incision and drainage History of appendectomy Family History Family History Father Hypertension Stroke Diabetes Mother Hypertension Diabetes Paternal Grandfather Cancer Paternal Aunt Cancer Brother Cancer, Onset Age: 52 Sister No problems noted. 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 Current occupational exposures/hazards: No Cognitive needs: No Hearing needs: No Vision needs: No Physical Exam Vital Signs: Vital Signs: Last Vital Signs Temp 98 F 12/14/23 14:21 Pulse 100 12/14/23 14:21 Resp 19 12/14/23 14:21 BP 142/94 H 12/14/23 14:21 Pulse Ox 96 12/14/23 14:21 O2 Del Method Room Air 12/14/23 14:21 BMI result Body Mass Index 35.6 General appearance comfortable no acute distress Neck is supple Respiratory no distress The back and neck have full range of motion Extremities full range of motion x4 Right knee exam there is very mild soft tissue swelling no obvious effusion, it has full range of motion, it extends to 180 there is no redness or warmth there is no rash it is neurovascularly intact distal His gait shows a very mild limp Course Course Course Narrative: RME-14:25PM - 43-year-old male presenting to the ER with complaints of atraumatic knee pain. He reports it is worse with ambulation at the medial aspect. Otherwise he denies any chest pain, recent falls or trauma, shortness of breath, dyspnea on exertion orthopnea, lower extremity edema or calf tenderness or any other symptoms complaints or concerns at this time. Plan: X-ray of right knee ordered patient will be sent back to the waiting room to be evaluated in [facility]. X-ray of the right knee showed some arthritis Patient with medial knee pain no calf pain no leg swelling, good range of motion,, walks easily Treated with anti-inflammatory referral to orthopedist and work note for couple of days Discharge Plan Discharge Clinical Impression: Arthritis of knee Patient Disposition: Home, Self-Care Additional Instructions: X-ray showed arthritis in the knee which can periodically get inflamed and cause pain and sometimes swelling This usually goes away on its own after several days but the underlying problem will probably cause intermittent knee pain occasionally If pain does not go away follow with orthopedist, sometimes a steroid injection will relieve the inflammation Return any time any worse condition or any concerns Prescriptions: New ibuprofen 600 mg tablet 600 mg PO Q6H PRN (Reason: pain) Qty: 20 0RF No Action lidocaine 5 % adhesive patch,medicated 1 patch topical DAILY Qty: 15 0RF Rx Instructions: leave on most painful area for up to 12 hrs naproxen 500 mg tablet 500 mg PO BID PRN (Reason: pain) Qty: 20 0RF cyclobenzaprine 10 mg tablet 10 mg PO TID PRN (Reason: muscle spasm) Qty: 14 0RF Referrals: Jarred Salinas MD [Physician] - (Right knee osteoarthritis) Stand Alone Forms: Work/School Release Interventions: ED Discharge Assessment Last Done: 12/14/23 16:26 Discharge Date/Time: 12/14/23 16:28 Print Language: Swedish
== END 2023-12-14 16:28 | disposition home or self-care (01) ==
PROVIDERS: Emergency Provider Emergency Medicine; PCP Internal Medicine
DX: M17.11 Unilateral primary osteoarthritis, right knee (principal)
CPT/HCPCS: 73564; 99282; 99283

== ENCOUNTER 2023-12-21 13:34 | Outpatient (AMB) | payer OTHER, SELFPAY ==
--- NOTE | 2023-12-21 13:42 | A.OFFVIS_ITS ---
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 Patient reports that he has had pain ongoing for about 2 weeks now. Hx of basketball injury while in [place], no treatment after injury. Pain increased with climbing stairs and ambulation. 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 Patient reports that he has had pain ongoing for about 2 weeks now. Hx of basketball injury while in [place], no treatment after injury. Pain increased with climbing stairs and ambulation. Taking Ibuprofen which is not helpful . [facility] Medical History Physical exam Chest pain Class 2 obesity with body mass index (BMI) of 38.0 to 38.9 in adult Hypovitaminosis D Testosterone deficiency Transaminitis Hemorrhoids that prolapse with straining and require manual replacement back inside anal canal Cough Swollen R ankle Testicular pain Bleeding hemorrhoids Personal history of COVID-19 Abnormal ejaculation Obese Family history of colon cancer Rectal bleeding Surgical History H/O hemorrhoidectomy History of colonoscopy History of incision and drainage History of appendectomy Family History Father Hypertension Stroke Diabetes Mother Hypertension Diabetes Paternal Grandfather Cancer Paternal Aunt Cancer Brother Cancer, Onset Age: 52 Sister No problems noted. 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 Resp Other: No audible wheezing Effort & Inspection: normal respiratory effort Back/Spine/Pelvis Cervical Spine: normal cervical lordosis Skin General skin exam: no rashes or lesions noted Neuro General: no focal motor deficits Extrem Other: Right knee with TTP medial joint line and lateral retropatellar. No effusion Psych Appearance: grossly normal and well kempt Mental Status: mental status grossly normal Speech and movement: Normal speech and movement present Affect: normal affect Attitude: cooperative Results Reviewed Results Reviewed: I personally reviewed relevant radiographs. Mild-moderate degenerative changes right knee Assessment & Plan Assessment & Plan (1) Arthritis of right knee: Code(s): M17.11 - Unilateral primary osteoarthritis, right knee Plan: This is a 43 yo M with right knee OA that is mild-moderate. I discussed diagnosis and treatment options. I injected his right knee today. I recommend weight loss and physical activity. He may follow up PRN, no sooner than 3 months for repeat injection Coding Level of Care Code New Pt Level 3 (46036) Diagnoses Arthritis of right knee M17.11
== END 2023-12-21 15:11 | disposition home or self-care (01) ==
PROVIDERS: PCP Internal Medicine; Visit Provider Orthopaedic Surgery
DX: M17.11 Unilateral primary osteoarthritis, right knee (principal)
CPT/HCPCS: 20610; 99203

== ENCOUNTER → 2023-12-21 13:34 | Outpatient (BNVA) | payer OTHER, SELFPAY | PROVIDERS: PCP Internal Medicine; Visit Provider Orthopaedic Surgery | DX: M17.11 Unilateral primary osteoarthritis, right knee (principal) | CPT/HCPCS: 20610; 99202; J0665; J1100 ==

== ENCOUNTER 2024-01-14 09:04 | Emergency (ER) | payer OTHER, SELFPAY ==
[2024-01-14 09:11] VITALS: BP 164/88; PULSE 71; RESP 18; TEMP 36.9; O2SAT 97; BMI 37.4
--- NOTE | 2024-01-14 09:39 | ED_ITS ---
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 He states he was trying to get up and his back spasm. . It was hard for him to get up and he needed his coworkers to help him up. He has had right-sided low back pain since. It is worse with movement. He states it feels tight and tense. He has been taking Aleve and using topical lidocaine with brief relief. He denies any urinary symptoms. No inguinal numbness or tingling. No radiation of the pain. No fever or chills. No history of IV drug use. MD elicited complaint: back pain and back injury Onset (ago): day(s) (2) Timing: constant Severity: moderate Similar Symptoms Previously: Yes Quality: spasming Location: right lower back Radiation: none Exacerbating factors: movement Relieving factors: immobilization Context: turning/twisting and bending Associated symptoms: denies other symptoms Treatments prior to arrival: NSAIDS Work related injury: Yes Related Data Previous Rx's ?Medication ?Instructions ?Recorded ibuprofen 600 mg tablet 600 mg PO Q6H PRN pain #20 tabs 12/14/23 cyclobenzaprine 10 mg tablet 10 mg PO TID PRN muscle spasm #14 01/14/24 tabs lidocaine 5 % topical patch 1 patch topical DAILY #15 ea 01/14/24 naproxen 500 mg tablet 500 mg PO BID PRN pain #20 tabs 01/14/24 Allergies Allergy/AdvReac Type Severity Reaction Status Date / Time barium sulfate AdvReac Intermediate inadequate Verified 01/14/24 09:13 response trazodone AdvReac Intermediate dry mouth, Verified 01/14/24 09:13 vomiting Review of Systems Review of Systems: Yes all other systems are reviewed and are negative PMFSH Past Medical History Medical History Physical exam Chest pain Class 2 obesity with body mass index (BMI) of 38.0 to 38.9 in adult Hypovitaminosis D Testosterone deficiency Transaminitis Hemorrhoids that prolapse with straining and require manual replacement back inside anal canal Cough Swollen R ankle Testicular pain Bleeding hemorrhoids Personal history of COVID-19 Abnormal ejaculation Obese Family history of colon cancer Rectal bleeding Surgical History H/O hemorrhoidectomy History of colonoscopy History of incision and drainage History of appendectomy Family History Family History Father Hypertension Stroke Diabetes Mother Hypertension Diabetes Paternal Grandfather Cancer Paternal Aunt Cancer Brother Cancer, Onset Age: 52 Sister No problems noted. 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 Oriented X3. No acute distress. HEENT: normal external inspection Neck: Normal inspection. Respiratory: No respiratory distress. Abdomen: Soft and nontender. +BS x4 Back: Right-sided upper, middle, lower lumbar area with soft tissue tenderness and palpable spasm. No midline tenderness. Limited flexion of the spine due to pain. Negative straight leg raise test. Skin: Skin warm and dry. Normal skin color. Normal skin turgor. No rashes. Extremities: No lower extremity edema. No joint swelling. Neuro/psych: Oriented X 3. No motor deficit. No sensory deficit. CN II-XII intact. Normal speech and cognition. Steady gait. DTRs normal. Medical Decision Making Medical Decision Making MDM Narrative: 43-year-old male presents the ER for evaluation of right-sided low back pain after bending 2 days ago. He has no urinary symptoms. He has no red flag symptoms. On examination he has soft tissue tenderness and palpable spasm in his lumbar region. His exam and clinical presentation are consistent with m uscular strain and spasm. will treat accordingly. He was given strict return precautions. Work note provided per request. Stable for discharge home. Encouraged follow-up with primary care doctor. Differential Diagnosis Differential Diagnoses: The differential diagnosis associated with the presentation includes Inflammatory disorders, malignancy, trauma, osteoporosis, nerve root compression, radiculopathy, plexopathy, degenerative disc disease, disc herniation, spinal stenosis, sacroiliac joint dysfunction, facet joint injury, and less likely infection?like abscess or diskitis Independent Historian Clinical information obtained from an independent historian. History obtained from or confirmed by: Spouse External Record Review External record reviewed: Outpatient record and Prior outpatient labs Tests considered The following testing was considered but not selected: X-ray of the lumbar spine was considered however no midline tenderness and no trauma Prescription Management I considered prescription management with: Pain Medication Chronic Conditions Patient?s care impacted by: Other ( obesity) Critical Care Time Critical Care Time Critical Care Time: No Discharge Plan Discharge Clinical Impression: Strain of lumbar region Patient Disposition: Home, Self-Care Instructions: Low Back Strain (ED), Lower Back Exercises (ED) Additional Instructions: Your pain is most likely due to muscle strain and spasm. No bending, lifting or twisting. Use ice several times per day for 20 minutes at a time for the next 48 hours and then change to heat. Take medications as prescribed to help with pain and discomfort. Follow up with your Primary Care Doctor this week. If your pain worsens, if you develop new numbness, tingling, weakness, loss of function or incontinence call 911 or come back to the ER right away for evaluation. Prescriptions: New lidocaine 5 % adhesive patch,medicated 1 patch topical DAILY Qty: 15 0RF Rx Instructions: leave on most painful area for up to 12 hrs naproxen 500 mg tablet 500 mg PO BID PRN (Reason: pain) Qty: 20 0RF cyclobenzaprine 10 mg tablet 10 mg PO TID PRN (Reason: muscle spasm) Qty: 14 0RF No Action ibuprofen 600 mg tablet 600 mg PO Q6H PRN (Reason: pain) Qty: 20 0RF Referrals: Russell Riya,Jolie, MD [Primary Care Provider] - Stand Alone Forms: Work/School Release Print Language: Belarusian
[2024-01-14 10:07] VITALS: BP 164/88; PULSE 71; RESP 18; TEMP 36.9; O2SAT 97
== END 2024-01-14 10:07 | disposition home or self-care (01) ==
PROVIDERS: Emergency Provider Emergency Medicine; PCP Internal Medicine
DX: S39.012A Strain of muscle, fascia and tendon of lower back, initial encounter (principal); W01.0XXA Fall on same level from slipping, tripping and stumbling without subsequent striking against object, initial encounter; Y93.9 Activity, unspecified; Y92.9 Unspecified place or not applicable; Y99.8 Other external cause status
CPT/HCPCS: 99282; 99283

== ENCOUNTER 2024-07-11 13:00 | Outpatient (AMB) | payer MEDICAID, SELFPAY ==
[2024-07-11 13:19] VITALS: BMI 37.4
--- NOTE | 2024-07-11 13:19 | A.OFFVIS_ITS ---
Vital Signs 07/11/24 13:19 Height 5 ft 9 in Weight 253 lb 8 oz BMI 37.4 Intake Visit Reasons: OV- RT Knee OA Intake Note: David is a 43 year old male who presents today for evaluation of right knee OA. Patient reports worsening right knee pain. Last knee injection given 12/21/23 provided relief therefore he would like to repeat it today. Patient has been using Voltaren gel and ibuprofen with minimal relief. Allergies barium sulfate Adverse Reaction (Intermediate, Verified 07/11/24 13:22) inadequate response trazodone Adverse Reaction (Intermediate, Verified 07/11/24 13:22) dry mouth, vomiting HPI HPI OV- RT Knee OA: Details: This is a 43-year-old gentleman who has right knee osteoarthritis. I injected his right knee about 6 months ago and it lasted for about 4 months but he has been having worsening pain over the last 2 months. He has pain with stairs and standing from a seated position. He feels like his knee swells up. HPI Comments Details: David is a 43 year old male who presents today for evaluation of right knee OA. Patient reports worsening right knee pain. Last knee injection given 12/21/23 provided relief therefore he would like to repeat it today. Patient has been using Voltaren gel and ibuprofen with minimal relief. [facility] Medical History Physical exam Chest pain Class 2 obesity with body mass index (BMI) of 38.0 to 38.9 in adult Hypovitaminosis D Testosterone deficiency Transaminitis Hemorrhoids that prolapse with straining and require manual replacement back inside anal canal Cough Swollen R ankle Testicular pain Bleeding hemorrhoids Personal history of COVID-19 Abnormal ejaculation Obese Family history of colon cancer Rectal bleeding Surgical History H/O hemorrhoidectomy History of colonoscopy History of incision and drainage History of appendectomy Family History Father Hypertension Stroke Diabetes Mother Hypertension Diabetes Paternal Grandfather Cancer Paternal Aunt Cancer Brother Cancer, Onset Age: 52 Sister No problems noted. 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 Resp Other: No audible wheezing Effort & Inspection: normal respiratory effort Back/Spine/Pelvis Cervical Spine: normal cervical lordosis Skin General skin exam: no rashes or lesions noted Neuro General: no focal motor deficits Extrem Other: Right knee with TTP medial joint line and lateral retropatellar. 1+ effusion Psych Appearance: grossly normal and well kempt Mental Status: mental status grossly normal Speech and movement: Normal speech and movement present Affect: normal affect Attitude: cooperative Office Procedures Joint Injection/Aspiration Joint Injection/Aspiration Details: Injected 1 mL of Decadron and 3 mL 1% lidocaine and 3 mL of 0.25% Marcaine. Site was prepped using aseptic technique. Patient tolerated the procedure well. Primary Site: right knee Approach Used: anterolateral Coding - Large joint Procedure code (CPT) selection complete Assessment & Plan Assessment & Plan (1) Arthritis of right knee: Code(s): M17.11 - Unilateral primary osteoarthritis, right knee Category: Medical Plan: This is a 43-year-old gentleman with right knee osteoarthritis. We again discussed treatment options. Given his age I recommend repeat injection as the last 1 was very helpful. If this is helped for less than 3 months we can consider viscosupplementation or if greater than 3 months he can return to see me for repeat injection. Coding Level of Care Code Est Pt Level 3 (80009) Diagnoses Arthritis of right knee M17.11 CPT Codes Coding - Large joint: 22708 - Large joint ([id number])
== END 2024-07-11 13:47 | disposition home or self-care (01) ==
PROVIDERS: Visit Provider Orthopaedic Surgery
DX: M17.11 Unilateral primary osteoarthritis, right knee (principal)
CPT/HCPCS: 20610; 99213

== ENCOUNTER → 2024-07-11 13:00 | Outpatient (BNVA) | payer MEDICAID, SELFPAY | PROVIDERS: Visit Provider Orthopaedic Surgery | DX: M17.11 Unilateral primary osteoarthritis, right knee (principal) | CPT/HCPCS: 20610; 99212; J0665; J1100 ==

== ENCOUNTER 2024-08-02 08:19 | Outpatient (REF) | payer MEDICAID, SELFPAY ==
[2024-08-02 12:01] LABS: Alanine Aminotransferase 136 U/L (0-40); Alkaline Phosphatase 168 U/L (39-117); Anion Gap 10 (12-20); Aspartate Amino Transferase 51 U/L (5-37); Bilirubin Total 0.8 mg/dL (0.0-1.0); Blood Urea Nitrogen 12 mg/dL (9-16); Calcium 9.5 mg/dL (8.4-10.2); Carbon Dioxide 25 mmol/L (22-29); Chloride 106 mmol/L (96-108); Cholesterol 186 mg/dL (<200); Estimated Glomerular Filt Rate > 60; Glucose Random 255 mg/dL (60-115); HDL Cholesterol 49 mg/dL (>40); LDL Cholesterol Calculated 108 mg/dL (<100); Potassium 3.8 mmol/L (3.3-5.1); Sodium 137 mmol/L (135-145); Total Protein 6.9 g/dL (6.5-8.0); Triglycerides 148 mg/dL (<150)
[2024-08-03 09:57] LABS: Hepatitis A Antibody IgG Nonreactive (Nonreactive); ~Hepatitis A Antibody IgG 0.32 S/CO (0.00-0.99)
[2024-08-03 10:35] LABS: HBS Num1 30.82 mIU/mL (0-7.99); HBsAGNum1 0.34 S/CO (0.00-0.99); Hepatitis B Surface Antigen Negative (Negative); ~HepC Num1 0.35 S/CO (0.00-0.79); ~Hepatitis B Surface Antibody REACTIVE (Nonreactive); ~Hepatitis C Antibody Nonreactive (Nonreactive)
== END 2024-08-02 08:20 | disposition home or self-care (01) ==
LOC: HO.HHCL 08:19
PROVIDERS: Visit Provider Internal Medicine Geriatric Medicine
DX: R74.01 Elevation of levels of liver transaminase levels (principal)
CPT/HCPCS: 36415; 80053; 80061; 86706; 86708; 86803; 87340

== ENCOUNTER 2024-08-10 08:59 | Outpatient (REF) | payer MEDICAID, SELFPAY ==
--- NOTE | ~2024-08-10 | US_ITS ---
EXAMINATION: US ABDOMEN LIMITED CLINICAL INFORMATION: Elevated liver enzymes. COMPARISON: Ultrasound abdomen complete 01/21/2022. TECHNIQUE: Real-time imaging of the right upper quadrant abdominal viscera. FINDINGS: PANCREAS: Normal. LIVER: Increased echogenicity of the liver parenchyma, this can be seen in the setting of hepatic steatosis or liver parenchymal disease. The liver contour is normal. Enlarged liver the right lobe measure up to 20 cm. There is no intrahepatic biliary duct dilatation seen. GALLBLADDER: Normal. The gallbladder is physiologically distended without evidence of stones, sludge, polyps, wall thickening or pericholecystic fluid. COMMON BILE DUCT: Normal in caliber measuring 0.2 cm in diameter. RIGHT KIDNEY: Normal. No hydronephrosis. No renal calculi or focal parenchymal lesions. The kidney measures 13.2 cm in maximum dimension. FREE FLUID: None. US/US abdomen limited IMPRESSION: 1. Hepatomegaly. 2. Increased echogenicity of the liver parenchyma, this can be seen in the setting of hepatic steatosis or liver parenchymal disease. Electronically signed by: Benja Ramirez MD 08/28/2024 05:39 PM EST
== END 2024-08-10 09:00 | disposition home or self-care (01) ==
LOC: HO.US 08:59
PROVIDERS: PCP Internal Medicine Geriatric Medicine; Visit Provider Internal Medicine Geriatric Medicine
DX: R74.01 Elevation of levels of liver transaminase levels (principal)
CPT/HCPCS: 76705

== ENCOUNTER 2024-08-18 18:04 | Outpatient (REF) | payer MEDICAID, SELFPAY | END 2024-08-18 18:05 | disposition home or self-care (01) | LOC: HO.HHCLNP 18:04 | PROVIDERS: Visit Provider Family Medicine | DX: L02.415 Cutaneous abscess of right lower limb (principal) | CPT/HCPCS: 87070; 87205 ==

== ENCOUNTER 2024-11-14 14:44 | Emergency (ER) | payer MEDICAID, SELFPAY ==
--- NOTE | ~2024-11-14 | CT_ITS ---
CLINICAL HISTORY: abd pain Exam: CT abdomen and pelvis with intravenous contrast. Comparison: Ultrasound examination is August 10, 2024 and January 21, 2022. Findings: CT abdomen: Lung bases are clear. No concerning bony lesions. No acute fractures. Liver is enlarged measuring 21 cm in craniocaudal dimension. Low attenuation throughout the liver is indicative of fatty infiltration. 1 cm calcification within the posterior right lobe of the liver. Adjacent 2 mm calcification. No concerning hepatic mass lesions. Main portal vein is patent. Spleen, pancreas, gallbladder, adrenal glands, and kidneys are unremarkable for acute findings. Concentric wall thickening of the distal esophagus. Small bowel loops are of normal caliber. No free fluid or free air. CT pelvis: No colonic wall thickening or pericolonic inflammatory stranding. Scattered diverticuli within the colon without findings of diverticulitis. No findings of appendicitis. No free fluid or free air Impression: 1. Hepatomegaly with diffuse fatty infiltration of the liver. 2. Nonspecific wall thickening of the distal esophagus, likely due to nonspecific esophagitis. This document has been electronically signed by: Roe Giraldo MD on 11/14/2024 23:46:35
[2024-11-14 15:00] VITALS: BP 145/85; PULSE 60; RESP 18; TEMP 36.6; O2SAT 98; BMI 32.6
--- NOTE | 2024-11-14 15:00 | ED_ITS ---
HPI - Abdominal Pain General Chief Complaint: Nausea/Vomiting/Diarrhea Stated Complaint: Fever, dizziness, vomiting sent from walk in Time Seen by Provider: 11/14/24 19:17 Related Data Previous Rx's ?Medication ?Instructions ?Recorded ibuprofen 600 mg tablet 600 mg PO Q6H PRN pain #20 tabs 12/14/23 cyclobenzaprine 10 mg tablet 10 mg PO TID PRN muscle spasm #14 01/14/24 tabs lidocaine 5 % topical patch 1 patch topical DAILY #15 ea 01/14/24 naproxen 500 mg tablet 500 mg PO BID PRN pain #20 tabs 01/14/24 ondansetron 4 mg disintegrating 4 mg PO TID PRN nausea and 11/15/24 tablet vomiting 5 days #10 tabs Allergies Allergy/AdvReac Type Severity Reaction Status Date / Time barium sulfate AdvReac Intermediate inadequate Verified 11/14/24 15:01 response trazodone AdvReac Intermediate dry mouth, Verified 11/14/24 15:01 vomiting PMFSH Past Medical History Medical History Physical exam Chest pain Class 2 obesity with body mass index (BMI) of 38.0 to 38.9 in adult Hypovitaminosis D Testosterone deficiency Transaminitis Hemorrhoids that prolapse with straining and require manual replacement back inside anal canal Cough Swollen R ankle Testicular pain Bleeding hemorrhoids Personal history of COVID-19 Abnormal ejaculation Obese Family history of colon cancer Rectal bleeding Surgical History H/O hemorrhoidectomy History of colonoscopy History of incision and drainage History of appendectomy Family History Family History Father Hypertension Stroke Diabetes Mother Hypertension Diabetes Paternal Grandfather Cancer Paternal Aunt Cancer Brother Cancer, Onset Age: 52 Sister No problems noted. 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 Full HPI, ROS and PE to be performed by primary ED provider. 44-year-old male with a past medical history of BUNNY, sleep apnea, HTN, presenting to the ED c/o diffuse abdominal pain, fever, nausea, vomiting, myalgias x 4 days PE: Abdomen soft w/RUQ and lower abdominal tenderness Plan: Labs, UA, viral testing Medical Decision Making Lab Data 11/14/24 16:04 11/14/24 16:04 Labs: Lab Results 11/14/24 Range/Units 16:04 WBC 7.0 (4.8-10.8) X10*3/uL RBC 5.37 (4.60-5.80) X10*6/uL Hgb 15.0 (14.0-18.0) g/dl Hct 44.8 (42.0-52.0) % MCV 83.4 (80.0-98.0) fL MCH 27.9 (27.0-33.0) pg MCHC 33.5 (31.0-36.0) g/dl RDW 12.2 (11.0-16.0) % Plt Count 229 D (160-400) X10*3/uL MPV 10.0 (9.4-12.4) fL Immature Gran % (Auto) 0.4 (0.0-0.4) % Neut % (Auto) 69.6 (45-73) % Lymph % (Auto) 17.7 L (20-40) % [place] % (Auto) 12.2 H (2-11) % Eos % (Auto) 0.0 (0-4) % Baso % (Auto) 0.1 (0-2) % Lymph # (Auto) 1.2 (1.2-4.9) X10*3/uL [place] # (Auto) 0.9 (0.1-1.2) X10*3/uL Eos # (Auto) 0.0 (0.0-0.4) X10*3/uL Baso # (Auto) 0.0 (0.0-0.2) X10*3/uL Abs Immat Gran (auto) 0.03 (0.00-0.03) X10*3/uL Absolute Neuts (auto) 4.8 (2.0-8.3) x10*3/uL Absolute Nucleated RBC 0.000 (0.0-0.012) X10*3/uL Nucleated RBC % (auto) 0.0 (0.0-0.2) /100WBC Sodium 137 (135-145) mmol/L Potassium 3.8 (3.3-5.1) mmol/L Chloride 102 (96-108) mmol/L Carbon Dioxide 28 (22-29) mmol/L Anion Gap 11 L (12-20) BUN 16 (9-16) mg/dL Creatinine 0.82 (0.5-1.4) mg/dL Estim Creat Clear Calc 135.3 Estimated GFR > 60 Random Glucose 245 H (60-115) mg/dL Calcium 8.8 D (8.4-10.2) mg/dL Magnesium 2.0 (1.6-2.6) mg/dL Total Bilirubin 0.5 (0.0-1.0) mg/dL Direct Bilirubin 0.2 (0.0-0.5) mg/dL AST 75 H (5-37) U/L ALT 112 H (0-40) U/L Alkaline Phosphatase 99 (39-117) U/L Total Protein 7.6 (6.5-8.0) g/dL Albumin 3.9 (3.5-5.0) g/dL Lipase 12 (8-78) U/L Influenza Type A (PCR) NEGATIVE (Negative) Influenza Type B (PCR) NEGATIVE (Negative) RSV RNA Qual (PCR) NEGATIVE (Negative) SARS-CoV-2 RNA (RT-PCR) NEGATIVE (Negative) S. pyogenes GrpA ZULAY Negative (Negative) Medications Administered Discontinued Medications Generic Name Dose Route Start Last Admin Trade Name Freq PRN Reason Stop Dose Admin Sodium Chloride 1,000 mls @ 999 mls/hr 11/14/24 21:15 11/15/24 00:59 Ns IV 11/14/24 22:15 Infused .Q1H1M ARIE Infusion Sodium Chloride 1,000 mls @ 999 mls/hr 11/14/24 21:15 11/15/24 00:59 Ns IV 11/14/24 22:15 Infused .Q1H1M ARIE Infusion Iohexol 85 ml 11/14/24 23:02 11/14/24 23:02 Iohexol 350 Mg/Ml 100 Ml Infus..Btl IV 11/14/24 23:03 85 ml ONCE ONE Administration Ketorolac Tromethamine 30 mg 11/14/24 21:11 11/14/24 21:41 Ketorolac Tromethamine 30 Mg/Ml Vial IVPUSH 11/14/24 21:12 30 mg ONCE ONE Administration Ondansetron HCl 4 mg 11/14/24 21:11 11/14/24 21:41 Ondansetron Hcl 4 Mg/2 Ml Vial IVPUSH 11/14/24 21:12 4 mg ONCE ONE Administration Discharge Plan Discharge Clinical Impression: Gastroenteritis Patient Disposition: Home, Self-Care Instructions: Gastroenteritis (ED) Prescriptions: New ondansetron 4 mg tablet,disintegrating 4 mg PO TID PRN (Reason: nausea and vomiting) 5 Days Qty: 10 0RF No Action ibuprofen 600 mg tablet 600 mg PO Q6H PRN (Reason: pain) Qty: 20 0RF lidocaine 5 % adhesive patch,medicated 1 patch topical DAILY Qty: 15 0RF Rx Instructions: leave on most painful area for up to 12 hrs naproxen 500 mg tablet 500 mg PO BID PRN (Reason: pain) Qty: 20 0RF cyclobenzaprine 10 mg tablet 10 mg PO TID PRN (Reason: muscle spasm) Qty: 14 0RF Referrals: Name,MD Skip [Primary Care Provider] - 11/17/24 Print Language: Ukrainian
[2024-11-14 16:09] LABS: MANUAL DIFF FLAG NO
[2024-11-14 16:12] LABS: Basophils Percent Auto 0.1 % (0-2); Hematocrit 44.8 % (42.0-52.0); Imm Gran Abs Auto 0.03 X10*3/uL (0.00-0.03); Imm Gran Pct Auto 0.4 % (0.0-0.4); Lymphocytes Absolute Auto 1.2 X10*3/uL (1.2-4.9); Lymphocytes Percent Auto 17.7 % (20-40); Mean Corpuscular HGB Conc 33.5 g/dl (31.0-36.0); Mean Corpuscular Hemoglobin 27.9 pg (27.0-33.0); Mean Corpuscular Volume 83.4 fL (80.0-98.0); Monocytes Absolute Auto 0.9 X10*3/uL (0.1-1.2); Monocytes Percent Auto 12.2 % (2-11); Neutrophils Absolute Auto 4.8 x10*3/uL (2.0-8.3); Neutrophils Percent Auto 69.6 % (45-73); Platelet Count 229 X10*3/uL (160-400); Red Blood Count 5.37 X10*6/uL (4.60-5.80); Red Cell Distribution Width 12.2 % (11.0-16.0)
[2024-11-14 16:21] LABS: IDNOW Serial# 58CA691E; Strep A Nucleic Acid Negative (Negative)
[2024-11-14 16:28] LABS: Alanine Aminotransferase 112 U/L (0-40); Albumin Level 3.9 g/dL (3.5-5.0); Alkaline Phosphatase 99 U/L (39-117); Anion Gap 11 (12-20); Aspartate Amino Transferase 75 U/L (5-37); Bilirubin Direct 0.2 mg/dL (0.0-0.5); Bilirubin Total 0.5 mg/dL (0.0-1.0); Blood Urea Nitrogen 16 mg/dL (9-16); Calcium 8.8 mg/dL (8.4-10.2); Carbon Dioxide 28 mmol/L (22-29); Chloride 102 mmol/L (96-108); Creatinine Clr Calc Pharmacy 135.3; Estimated Glomerular Filt Rate > 60; Glucose Random 245 mg/dL (60-115); Lipase 12 U/L (8-78); Potassium 3.8 mmol/L (3.3-5.1); Sodium 137 mmol/L (135-145); Total Protein 7.6 g/dL (6.5-8.0)
[2024-11-14 16:48] LABS: Influenza A PCR NEGATIVE (Negative); Influenza B PCR NEGATIVE (Negative); Resp Syncy Virus RNA Qual PCR NEGATIVE (Negative); SARS COV2 PCR INHOUSE NEGATIVE (Negative)
--- OUTSIDE RECORDS SUMMARY | 2024-11-14 19:25 | XMS_ITS | Encounter Summary ---
Author Organization [employer] Address [address] [place] [address] Care Team Providers Care Assistant Teaching Professor Name Role Phone Name, Sikp OMER Primary Care Provider [phone] Encounter Details Date Type Department Care Team (Late st Contact Info) Description 11/14/2024 Orders Only GENERIC EXTERNAL DATA DEPARTMENT Provider, Generic External Data Social History Tobacco Use Types Packs/Day Years Used Date Smoking Tobacco: Former Cigarettes Q uit: 01/18/2022 Smokeless Tobacco: Former Quit: 2023 Alcohol Use Standard Drinks/Week Comments Yes 0 (1 standard drink = 0.6 oz pur e alcohol) 6 beers once a week Depression Answer Date Recorded Patient Health Questionnaire-9 Score 9 07/29/2024 Patient Health Questionnaire-9 Score 9 07/29/2024 Last PHQ-9: Questionnaire Data Not on file 1 Housing Stability Answer Date Recorded What is your housing situation today? I have baron tsang 07/29/[address] you li ve. Do you have problems with any of the following? None of the above 07/29/2024 Food Insecurity Answer Date Recorded Within the past 12 months, y ou worried that your food would run out before you got money to buy more: Sometimes True 2023 Within the past 12 months,th e food you bought just didn't last and you didn't have enough money to get more: Sometimes True 07/29/2024 Transportation Answer Date Recorded In the past 12 months, has l ack of transportation kept you from medical appts, meetings, work or from getting things needed for daily living? No 07/29/2024 Utilities Answer Date Recorded In the past 12 months, has t he electric, gas, oil or water company threatened to shut off services in your home? No 07/29/2024 Depression Answer Date Recorded Patient Health Questionnaire-2 Score 1 07/29/2024 Internet Access Answer Date Recorded Internet Access Q1 Yes 07/29/2024 Internet Access Q2 Not on file 07/29/2024 Sex and Gender Information Value Date Recorded Sex Assigned at Male 03/22/2024 1:55 PM EDT Legal Sex Male 1:53 PM EDT Gender Identity Male 03/22/2024 1:55 PM EDT Sexual Orientation Straight 03/22/2024 1: 55 PM EDT documented as of this encounter Plan of Treatment Upcoming Encounters Date Type Department Care Team (Late st Contact Info) Description 01/02/2025 11:15 AM EDT Office Visit [facility] [address] [place] [address] Name, MD Skip [address] [place] [address] documented as of this encounter Procedures Procedure Name Priority Date/Time Associated Diagnosis Comments STREP A NUCLEIC ACID Routine 11/14/2024 4:04 PM EST SARS COV2/INFLUENZA A/B AND RSV RNA QL NAAT Routine 11/14/2024 4:04 PM EST CBC WITH AUTO DIFFERENTIAL Routine 11/14/2024 4:04 PM EST MAGNESIUM Routine 11/14/2024 4:04 PM EST LIPASE Routine 11/14/2024 4:04 PM EST HEPATIC FUNCTION PANEL Routine 11/14/2024 4:04 PM EST BASIC METABOLIC PANEL Routine 11/14/2024 4:04 PM EST documented in this encounter Results * SARS-CoV-2 RNA, Influenza A/B, and RSV RNA, Ql NAAT (11/14/2024 4:04 PM EST) Influenza A PCR NEGATIVE Negative [facility] Influenza B PCR NEGATIVE Negative [facility] Resp Syncy Virus RNA Qual PCR NEGATIVE Negative [facility] SARS COV2 PCR NEGATIVE Negative [facility] Comment:All test results mus t be correlated with clinical findings.Negative results do not preclude SARS-CoV2, influenza Avirus, influenza B virus and/or RSV infectionand should not be used as the sole basis for treatment orother patient management decisions. Negative results must becombined with clinical observations, patient history, andepidemiological information.This test has not been evaluated for monitoring treatment ofinfection.This test has been authorized by the FDA under an EmergencyUse Authorization (EUA) for use by authorized laboratories.Testing performed on the [employer] GeneXpert utilizingreal-time RT-PCR.All SARS CoV2 and positive influenza A/B results arereported to [facility]. 11/14/2024 4:04 PM EST 11/14/2024 4:08 PM EST Generic External Data Provider LAB MICROBIOLOGY - GENERAL ORDERABLES Final Result Performing Organization Address City/[facility]/ZIP Co de Phone Number [facility] [address] [place] [phone] * Lipase (11/14/2024 4:04 PM EST) Lipase 12 8 - 78 U/L [facility] 11/14/2024 4:04 PM EST 11/14/2024 4:08 PM EST Generic External Data Provider LAB BLOOD ORDERAB LES Final Result Performing Organization Address [facility]/ZIP Co de Phone Number [facility] [address] [place] [phone] * Magnesium (11/14/2024 4:04 PM EST) Magnesium 2.0 1.6 - 2.6 mg/dL [facility] 11/14/2024 4:04 PM EST 11/14/2024 4:08 PM EST us Generic External Data Provider LAB BLOOD ORDERAB LES Final Result Performing Organization Address [facility]/ZIP Co de Phone Number [facility] [address] [place] [address] [phone] * (ABNORMAL) Basic Metabolic Panel (11/14/2024 4:04 PM EST) Sodium 137 135 - 145 mmol/L [facility] Potassium 3.8 3.3 - 5.1 mmol/L [facility] Chloride 102 96 - 108 mmol/L [facility] Carbon Dioxide 28 22 - 29 mmol/L [facility] Anion Gap 11(L) 12 - 20 [facility] Urea Nitrogen (BUN) 16 9 - 16 mg/dL [facility] Creatinine, Serum 0.82 0.5 - 1.4 mg/dL [facility] Creatinine Clr Calc Pharmacy 135.3 [facility] Comment:eGFR (calculated fro m the MDRD study equation) and eCrCl(calculated from the Cockcroft-Gault equation) are based ondifferent parameters and may not yield comparable results.If eCrCl result is absurd, please check patient'sheight/weight. Estimated Glomerular Filt Rate >60 [facility] Comment:Chronic Kidney Disea se: Estimated GFR < 60 mL/min/1.41v5Ahindk Kidney Disease: Estimated GFR < 15 mL/min/1.73m2 Glucose 245(H) 60 - 115 mg/dL [facility] Calcium 8.8 8.4 - 10.2 mg/dL [facility] 11/14/2024 4:04 PM EST 11/14/2024 4:08 PM EST us Generic External Data Provider LAB BLOOD ORDERAB LES Final Result Performing Organization Address [facility]/ZIP Co de Phone Number [facility] [address] [place] [phone] * (ABNORMAL) Hepatic Function Panel (11/14/2024 4:04 PM EST) Pathologist [facility] Bilirubin, Total 0.5 0.0 - 1.0 mg/dL [facility] Bilirubin, Direct 0.2 0.0 - 0.5 mg/dL [facility] Aspartate Amino Transferase 75(H) 5 - 37 U/L [facility] Alanine Aminotransferase 112(H) 0 - 40 U/L [facility] Total Protein 7.6 6.5 - 8.0 g/dL [facility] Albumin Level 3.9 3.5 - 5.0 g/dL [facility] Alkaline Phosphatase 99 39 - 117 U/L [facility] 11/14/2024 4:04 PM EST 11/14/2024 4:08 PM EST Generic External Data Provider LAB BLOOD ORDERAB LES Final Result Performing Organization Address [facility] Co de Phone Number [facility] [address] [place] [phone] * Strep A Nucleic Acid (11/14/2024 4:04 PM EST) [facility] [employer] SERIAL# [id number] [facility] Strep A Nucleic Acid Negative Negative [facility] Comment:All test results mus t be correlated with clinical findings.This test has not been evaluated for monitoring treatment ofinfection.Additional follow-up testing using the culture method isrequired if the result is negative and clinical symptomspersist, or in the event of an acute rheumatic feveroutbreak. 11/14/2024 4:04 PM EST 11/14/2024 4:08 PM EST us Generic External Data Provider LAB MICROBIOLOGY - GENERAL ORDERABLES Final Result Performing Organization Address [facility] Co de Phone Number [facility] [address] [place] [phone] * (ABNORMAL) CBC auto differential (11/14/2024 4:04 PM EST) [facility] White Blood Count 7.0 4.8 - 10.8 X10*3/uL [facility] Red Blood Count 5.37 4.60 - 5.80 X10*6/uL [facility] Hemoglobin 15.0 14.0 - 18.0 g/dl [facility] Hematocrit 44.8 42.0 - 52.0 % [facility] Mean Corpuscular Volume 83.4 80.0 - 98.0 fL [facility] Mean Corpuscular Hemoglobin 27.9 27.0 - 33.0 pg [facility] Mean Corpuscular HGB Conc 33.5 31.0 - 36.0 g/dl [facility] Red Cell Distribution Width 12.2 11.0 - 16.0 % [facility] Platelet Count 229 160 - 400 X10*3/uL [facility] Mean Platelet Volume 10.0 9.4 - 12.4 fL [facility] Neutrophils Percent Auto 69.6 45 - 73 % [facility] Imm Gran Pct Auto 0.4 0.0 - 0.4 % [facility] Lymphocytes Percent Auto 17.7(L) 20 - 40 % [facility] Monocytes Percent Auto 12.2(H) 2 - 11 % [facility] Eosinophils Percent Auto 0.0 0 - 4 % [facility] Basophils Percent Auto 0.1 0 - 2 % [facility] NRBC Pct Auto 0.0 0.0 - 0.2 /100WBC [facility] Neutrophils Absolute Auto 4.8 2.0 - 8.3 x10*3/uL [facility] Imm Gran Abs Auto 0.03 0.00 - 0.03 X10*3/uL [facility] Lymphocytes Absolute Auto 1.2 1.2 - 4.9 X10*3/uL [facility] Monocytes Absolute Auto 0.9 0.1 - 1.2 X10*3/uL [facility] Eosinophils Absolute Auto 0.0 0.0 - 0.4 X10*3/uL [facility] Basophils Absolute Auto 0.0 0.0 - 0.2 X10*3/uL [facility] NRBC Abs Auto 0.000 0.0 - 0.012 X10*3/uL [facility] 11/14/2024 4:04 PM EST 11/14/2024 4:08 PM EST us Generic External Data Provider LAB BLOOD ORDERAB LES Final Result Performing Organization Address City/State/[facility] Co de Phone Number [facility] [address] [place] [phone] documented in this encounter Visit Diagnoses Not on filedocumented in this encounter Additional Health Concerns Assessment Noted Time PHQ-9 Depression Total Score: 9 07/29/20 24 1:52 PM EDT documented as of this encounter Care Teams Assistant Teaching Professor Relationship Specialty Start Date End Date Name, MD Skip [address] [place] [address] PCP - General Internal Medicine 07/29/24 documented as of this encounter
--- OUTSIDE RECORDS SUMMARY | 2024-11-14 19:25 | XMS_ITS | Clinical Summary ---
Author Organization [employer] Address [address] [facility] [address] [place] [address] Care Team Providers Care Cna Per Diem Name Role Phone Name, Skip OMER Primary Care Provider [phone] Allergies Active Allergy Reactions Criticality Noted Date Comments Trazodone 07/19/2024 Medications ibuprofen 600 MG tablet Take 600 mg by mouth every 6 (six) hours. 4 Active lidocaine (Lidoderm) 5 % patch Apply 1 patch topically Once per day. 4 Active Blood Pressure kitIndications: Elevated blood pressure reading For home use twice a day 1 kit 4 Active amLODIPine (Norvasc) 5 MG tablet Take 5 mg by mouth Once per day. 4 Active carvedilol (Coreg) 3.125 MG tablet Take 3.125 mg by mouth 2 times daily. 4 Active Active Problems Problem Noted Date Diagnosed Date Fever 11/14/2024 Right lower quadrant abdominal pain 11/14/2024 Assessment & Plan (11/14/2024 6:29 PM EST): Pt visibly uncomfortable, with difficulty tolerating oral intake at home Spouse reports has never seen pt this ill RLQ tenderness on palpation Reviewed options of supportive measures, blood work and STAT Ct vs er evaluation Pt opts for er evaluation, expect called to [place] [facility] for abdominal pain and fever Metabolic dysfunction-associated steatohepatitis (MASH) 08/30/2024 Hypertension 08/30/2024 Transaminitis 07/29/2024 Overview (07/29/2024): . BUNNY (obstructive sleep apnea) 07/29/2024 Overview (07/29/2024): One CPAP Encounters Date Type Department Care Team Description 11/14/2024 1:40 PM EST [facility] [address] [address] [place] NP Fever, unspecified fever cause (Primary Dx); Right lower quadrant abdominal pain 11/14/2024 Orders Only GENERIC EXTERNAL DATA DEPARTMENT Provider, Generic External Data 10/20/[address] [address] Christi Julian MA feb recalls 08/31/2024 11:00 AM EST Clinical Support [address] [address] Aminta Kc RN 08/30/2024 10:45 AM EST Telemedicine [address] [address] Skip Herzog MD Metabolic dysfunction-associated steatohepatitis (MASH) (Primary Dx); Hypertension, unspecified type; Encounter for immunization 08/18/2024 10:40 AM EST Office Visit [address] [address] Derick Oropeza MD Abscess of right thigh (Primary Dx) 08/18/2024 Orders Only [address] [address] Derick Oropeza MD 08/15/[address] [address] Skip Herzog MD No Show from Last 3 Months Immunizations Name Administration Dates Next Due Hep A, Adult 08/31/2024 Influenza, seasonal, injectable, preservative fr ee 07/29/2024 Tdap 07/29/2024 Social History Tobacco Use Types Packs/Day Years Used Date Smoking Tobacco: Former Cigarettes Q uit: 01/18/2022 Smokeless Tobacco: Former Quit: 2023 Tobacco Cessation:Counseling Given: Not Answered Alcohol Use Standard Drinks/Week Comments Yes 0 [...] Orientation Straight 03/22/2024 1: 55 PM EDT Last Filed Vital Signs Vital Sign Reading Time Taken Comments Blood Pressure 121/80 11/14/2024 1:59 PM EST Pulse 68 11/14/2024 1:59 PM EST Temperature 36.8 ??C (98.3 ??F) 11/14/2024 1:59 PM ES T Respiratory Rate 18 11/14/2024 1:59 PM EST Oxygen Saturation 96% 11/14/2024 1:59 PM EST Inhaled Oxygen Concentration - - Weight 104 kg (230 lb) 11/14/2024 1:59 PM EST Height 177.8 cm (5' 10 ) 07/29/2024 1:17 PM EDT Body Mass Index 33 07/29/2024 1:17 PM EDT Plan of Treatment Upcoming Encounters Date Type Department Care Team (Late st Contact Info) Description 01/02/2025 11:15 AM EDT Office Visit [facility] [address] [place] [address] Name, MD Skip [address] [place] [address] Health Maintenance Due Date Last Done Comments CT Colonography 1978 Colonoscopy 1978 Colorectal Cancer Screening 1978 FIT DNA/Cologuard 1978 FIT 1978 FOBT 1978 HIV Screening 1978 Sigmoidoscopy 1978 Family Planning (PISQ) 1993 COVID-19 Vaccine ( - 2023-2 5 season) 2024 Depression Monitoring (PHQ-9) 01/27/2025, 07/29/2024 Hepatitis A Vaccines (2 of 2 - Risk 2-dose series) 02/28/2025 08/31/2024 Depression Screening 07/29/2025 07/29/2024, 07/29/2024 SDOH Screening 07/29/2025 07/29/2024 Tobacco Screening 08/18/2025 08/18/2024 Alcohol/Substance Use Screening 08/30/2025 08/30/2024 Zoster Vaccines (1 of 2) 2028 Lipid Panel 08/02/2029 08/02/2024 DTaP/Tdap/Td Vaccines (2 - T d or Tdap) 07/29/2034 07/29/2024 RSV Patients and Patients Aged 60 years or older (1 - 1-dose 75+ series) 2053 Influenza Vaccine Completed 07/29/2024 Hepatitis C Screening Completed 08/02/2024 HIB Vaccines Aged Out No longer eligi ble based on patient's age to complete this topic HPV Vaccines Aged Out No longer eligi ble based on patient's age to complete this topic Hepatitis B Vaccines Discontinued IPV Vaccines Aged Out No longer eligi ble based on patient's age to complete this topic Meningococcal Vaccine Aged Out No tina teofilo eligible based on patient's age to complete this topic Pneumococcal Vaccine: Pediatrics (0 to 5 Years) and At-Risk Patients (6 to 49) Years) Aged Out No longer eligible based on patient's age to complete this topic RSV under 20 months Aged Out No longe r eligible based on patient's age to complete this topic Rotavirus Vaccines Aged Out No longer eligible based on patient's age to complete this topic Procedures Procedure Name Priority Date/Time Associated Diagnosis Comments LIPASE Routine 11/14/2024 4:04 PM EST MAGNESIUM Routine 11/14/2024 4:04 PM EST BASIC METABOLIC PANEL Routine 11/14/2024 4:04 PM EST HEPATIC FUNCTION PANEL Routine 11/14/2024 4:04 PM EST CBC WITH AUTO DIFFERENTIAL Routine 11/14/2024 4:04 PM EST SARS COV2/INFLUENZA A/B AND RSV RNA QL NAAT Routine 11/14/2024 4:04 PM EST STREP A NUCLEIC ACID Routine 11/14/2024 4:04 PM EST POCT INFLUENZA B (ID NOW RAPID MOLECULAR) Routine 11/14/2024 2:18 PM EST Fever, unspecified fever cause POCT INFLUENZA A (ID NOW RAPID MOLECULAR) Routine 11/14/2024 2:18 PM EST Fever, unspecified fever cause POCT RAPID COVID ANTIGEN Routine 11/14/2024 2:02 PM EST Fever, unspecified fever cause GRAM STAIN Routine 08/18/2024 12:00 AM EST HEPATITIS C AB W/REFL TO HCV RNA, QN, PCR Routine 08/02/2024 8:20 AM EDT Transaminitis LIPID PANEL, STANDARD Routine 08/02/2024 8:20 AM EDT Transaminitis from Last 3 Months or Most Recently Relevant to Health Maintenance Results * Strep A Nucleic Acid (11/14/2024 4:04 PM EST) IDNOW SERIAL# [id number] [facility] Strep A Nucleic Acid Negative Negative [facility] Comment:All test results mus t [...] LAB MICROBIOLOGY - GENERAL ORDERABLES Final Result [facility] [address] [place] [phone] * SARS-CoV-2 RNA, Influenza A/B, and RSV RNA, Ql NAAT (11/14/2024 4:04 PM EST) Influenza A PCR NEGATIVE Negative [facility] Influenza B PCR NEGATIVE Negative [facility] Resp Syncy Virus RNA Qual PCR NEGATIVE Negative [facility] SARS COV2 PCR NEGATIVE Negative [facility] Comment:All test results mus t [...] use by authorized laboratories.Testing performed on the [employer] GeneXpert utilizingreal-time RT-PCR.All SARS CoV2 and positive influenza A/B results arereported to [facility]. 11/14/2024 4:04 PM EST 11/14/2024 4:08 PM EST us Generic External Data Provider LAB MICROBIOLOGY - GENERAL ORDERABLES Final Result [facility] [address] [place] [address] [phone] * (ABNORMAL) CBC auto differential (11/14/2024 4:04 PM EST) White Blood Count 7.0 4.8 - 10.8 X10*3/uL [facility] Red Blood Count 5.37 4.60 - 5.80 X10*6/uL [facility] Hemoglobin 15.0 14.0 - 18.0 g/dl [facility] Hematocrit 44.8 42.0 - 52.0 % [facility] Mean Corpuscular Volume 83.4 80.0 - 98.0 fL [facility] Mean Corpuscular Hemoglobin 27.9 27.0 - 33.0 pg [facility] Mean Corpuscular HGB Conc 33.5 31.0 - 36.0 g/dl [facility] Red Cell Distribution Width 12.2 11.0 - 16.0 % [facility] Platelet Count 229 160 - 400 X10*3/uL [facility] Mean Platelet Volume 10.0 9.4 - 12.4 fL [facility] Neutrophils Percent Auto 69.6 45 - 73 % [facility] Imm Gran Pct Auto 0.4 0.0 - 0.4 % [facility] Lymphocytes Percent Auto 17.7(L) 20 - 40 % [facility] Monocytes Percent Auto 12.2(H) 2 - 11 % [facility] Eosinophils Percent Auto 0.0 0 - 4 % [facility] Basophils Percent Auto 0.1 0 - 2 % [facility] NRBC Pct Auto 0.0 0.0 - 0.2 /100WBC [facility] Neutrophils Absolute Auto 4.8 2.0 - 8.3 x10*3/uL [facility] Imm Gran Abs Auto 0.03 0.00 - 0.03 X10*3/uL [facility] Lymphocytes Absolute Auto 1.2 1.2 - 4.9 X10*3/uL [facility] Monocytes Absolute Auto 0.9 0.1 - 1.2 X10*3/uL [facility] Eosinophils Absolute Auto 0.0 0.0 - 0.4 X10*3/uL [facility] Basophils Absolute Auto 0.0 0.0 - 0.2 X10*3/uL [facility] NRBC Abs Auto 0.000 0.0 - 0.012 X10*3/uL [facility] 11/14/2024 4:04 PM EST 11/14/2024 4:08 PM EST us Generic External Data Provider LAB BLOOD ORDERAB LES Final Result Performing Organization Address [facility]/ZIP Co de Phone Number [facility] [address] [place] [phone] * Magnesium (11/14/2024 4:04 PM EST) Magnesium 2.0 1.6 - 2.6 mg/dL [facility] 11/14/2024 4:04 PM EST 11/14/2024 4:08 PM EST us Generic External Data Provider LAB BLOOD ORDERAB LES Final Result Performing Organization Address City/[facility]/ZIP Co de Phone Number [facility] [address] [place] [phone] * Lipase (11/14/2024 4:04 PM EST) Lipase 12 8 - 78 U/L [facility] 11/14/2024 4:04 PM EST 11/14/2024 4:08 PM EST us Generic External Data Provider LAB BLOOD ORDERAB LES Final Result Performing Organization Address City/[facility]/ZIP Co de Phone Number [facility] [address] [place] [phone] * (ABNORMAL) Hepatic Function Panel (11/14/2024 4:04 PM EST) Pathologist [facility] Bilirubin, Total 0.5 0.0 - 1.0 mg/dL [facility] Bilirubin, Direct 0.2 0.0 - 0.5 mg/dL [facility] Aspartate Amino Transferase 75(H) 5 - 37 U/L [facility] Alanine Aminotransferase 112(H) 0 - 40 U/L [facility] Total Protein 7.6 6.5 - 8.0 g/dL [facility] Albumin Level 3.9 3.5 - 5.0 g/dL [facility] Alkaline Phosphatase 99 39 - 117 U/L [facility] 11/14/2024 4:04 PM EST 11/14/2024 4:08 PM EST us Generic External Data Provider LAB BLOOD ORDERAB LES Final Result [facility] [address] [place] [phone] * (ABNORMAL) Basic Metabolic Panel (11/14/2024 4:04 PM EST) [facility] Sodium 137 135 - 145 mmol/L [facility] Potassium 3.8 3.3 - 5.1 mmol/L [facility] Chloride 102 96 - 108 mmol/L [facility] Carbon Dioxide 28 22 - 29 mmol/L [facility] Anion Gap 11(L) 12 - 20 [facility] Urea Nitrogen (BUN) 16 9 - 16 mg/dL [facility] Creatinine, Serum 0.82 0.5 - 1.4 mg/dL [facility] Creatinine Clr Calc Pharmacy 135.3 [facility] Comment:eGFR (calculated fro m the MDRD study equation) and eCrCl(calculated from the Cockcroft-Gault equation) are based ondifferent parameters and may not yield comparable results.If eCrCl result is absurd, please check patient'sheight/weight. Estimated Glomerular Filt Rate >60 [facility] Comment:Chronic Kidney Disea se: Estimated GFR < 60 mL/min/[id number] Kidney Disease: Estimated GFR < 15 mL/min/1.73m2 Glucose 245(H) 60 - 115 mg/dL [facility] Calcium 8.8 8.4 - 10.2 mg/dL [facility] 11/14/2024 4:04 PM EST 11/14/2024 4:08 PM EST Generic External Data Provider LAB BLOOD ORDERAB LES Final Result Performing Organization Address [facility] Co de Phone Number [facility] [address] [place] [phone] * Influenza B (ID NOW Rapid Molecular) (11/14/2024 2:18 PM EST) Influenza B Negative Negative, Indeterminate [facility] Swab 11/14/2024 2:18 PM EST [place] SAGGER SOAK POINT OF CARE TEST ENTER/EDIT OR DERABLES Final Result Performing Organization Address [facility] Co de Phone Number [facility] [address] [place] [phone] * Influenza A (ID NOW Rapid Molecular) (11/14/2024 2:18 PM EST) Influenza A Negative Negative, Indeterminate [facility] Swab 11/14/2024 2:18 PM EST [place] SAGGER SOAK POINT OF CARE TEST ENTER/EDIT OR DERABLES Final Result Performing Organization Address [facility] Co de Phone Number [facility] [address] [place] [phone] * POCT Rapid COVID Ag (11/14/2024 2:02 PM EST) Rapid COVID Ag Negative Swab 11/14/2024 2:02 PM EST [place] NP POINT OF CARE TEST ENTER/EDIT OR DERABLES Final Result * Gram stain (08/18/2024 12:00 AM EST) 08/18/2024 08/18/2024 Comment:Thigh Righ Narrative [facility] - 08/21/2024 8:31 AM EST Gram stain results: 3+ polys 2+ epithelial cells 4+ red blood cells 2+ Gram-negative rods 1+ Gram-positive cocci Routine Culture Report - external Routine Culture 1+ Mixed joyce Specimen Source: Thigh Right Derick Oropeza MD LAB MICROBIOLOGY - GENERAL ORDER CHRISTOPHER Final Result Performing Organization Address [facility]/ZIP Co de Phone Number [facility] [address] [place] [phone] * Hepatitis C Antibody with Reflex to HCV, RNA, Quantitative, Real-Time PCR (08/02/2024 8:20 AM EDT) [facility] Hepatitis C Antibody Nonreactive Nonreactive [facility] Comment:Antibodies to HCV no t detected; does not exclude early acuteHCV infection. Blood Venous blood specimen / Unknown 08/02/2024 8:20 AM EDT 08/02/2024 11:09 AM EDT Skip Herzog MD LAB BLOOD ORDERABLES Final Resul t Performing Organization Address [facility]/ZIP Co de Phone Number [facility] [address] [place] [address] [phone] * (ABNORMAL) Lipid Panel, Standard (08/02/2024 8:20 AM EDT) Pathologist [facility] Triglycerides 148 <150 mg/dL [facility] Comment:Desirable Triglyceri de: less than 150 mg/dLBorderline High Triglyceride 150-199 mg/dLHigh Triglyceride: 200-499 mg/dLVery High Triglyceride: greater than or equal to 5OO mg/dL Cholesterol 186 <200 mg/dL [facility] Comment:Desirable Cholestero l: less than 200 mg/dLBorderline High Cholesterol: 200-239 mg/dLHigh Cholesterol: greater than 239 mg/dL LDL Cholesterol Calculated 108(H) <100 mg/dL [facility] Comment:Desirable LDL: less than 100 mg/dLNear Optimal/Above Optimal LDL: 110- 129 mg/dLBorderline High LDL: 130-159 mg/dLHigh LDL: 160-189 mg/dLVery High LDL: greater than or equal to 190 mg/dL HDL Cholesterol 49 >40 mg/dL [facility] Comment:Desirable HDL: great er than 40 mg/dL Note: This HDL assay may give artificially low results in patients with liver disease. Blood Venous blood specimen / Unknown 08/02/2024 8:20 AM EDT 08/02/2024 11:09 AM EDT Skip Herzog MD LAB BLOOD ORDERABLES Final Resul t [facility] [address] [place] [phone] from Last 3 Months or Most Recently Relevant to Health Maintenance Insurance [facility] C3 Care Teams Cna Per Diem Relationship Specialty Start Date End Date Name, MD Skip [address] [place] [phone] PCP - General Internal Medicine 07/29/24
--- OUTSIDE RECORDS SUMMARY | 2024-11-14 19:26 | XMS_ITS | Encounter Summary ---
Author Organization [employer] Address [address] [facility] [address] [place] [address] Care Team Providers Care Channel Marketing Specialist Name Role Phone Name, Skip OMER Primary Care Provider Reason for Visit * Reason Onset Date Comments nov recalls 10/20/2024 Encounter Details Date Type Department Care Team (Late st Contact Info) Description 10/20/2024 Telephone [facility] [address] [place], [place] [phone] Christi Julian MA nov recalls Social History Tobacco Use Types Packs/Day Years [...] PM EDT documented as of this encounter Miscellaneous Notes * Telephone Encounter - Christi Julian MA - 10/20/2024 2:05 PM EST T/C placed to pt. Scheduled recall. Pt agrees with plan. Reminder letter sent . documented in this encounter Plan of Treatment Upcoming Encounters Date Type Department Care Team (Late st Contact Info) Description 01/02/2025 11:15 AM EDT Office Visit [facility] [address] [place] [phone] Name, MD Skip [address] [place] [address] documented as of this encounter Visit Diagnoses Not on filedocumented in this encounter Additional Health Concerns Assessment Noted Time PHQ-9 Depression Total Score: 9 07/29/20 24 1:52 PM EDT documented as of this encounter Care Teams Channel Marketing Specialist Relationship Specialty Start Date End Date NameSkip MD [address] [place] [phone] PCP - General Internal Medicine 07/29/24 documented as of this encounter
--- OUTSIDE RECORDS SUMMARY | 2024-11-14 19:26 | XMS_ITS | Encounter Summary ---
Author Organization [employer] Address [address] [facility] [address] [place] [address] Care Team Providers Care Veneer Gluer Name Role Phone Name, Skip OMER Primary Care Provider [phone] Reason for Visit * Reason Comments Headache Dizziness Encounter Details Date Type Department Care Team ([facility] Contact Info) Description 11/14/2024 1:40 PM EST Office Visit [facility] [address] [place], [place] [id number] Bel Wall, LOUANN [address] [place] [address] Fever, unspecified fever cause (Primary Dx); Right lower quadrant abdominal pain Social History Tobacco Use Types Packs/Day Years [...] PM EDT documented as of this encounter Last Filed Vital Signs Vital Sign Reading Time Taken Comments Blood Pressure 121/80 11/14/2024 1:59 PM EST Pulse 68 11/14/2024 1:59 PM EST Temperature 36.8 ??C (98.3 ??F) 11/14/2024 1:59 PM ES T Respiratory Rate 18 11/14/2024 1:59 PM EST Oxygen Saturation 96% 11/14/2024 1:59 PM EST Inhaled Oxygen Concentration - - Weight 104 kg (230 lb) 11/14/2024 1:59 PM EST Height - - Body Mass Index 33 07/29/2024 1:17 PM EDT documented in this encounter Progress Notes * Bel Wall, LOUANN - 11/14/2024 1:40 PM EST Subjective David Foster is a 44 y.o. male who presents to the office for sick visit. Pt presents with partner who is translating Current concerns: Acute illness, started last week, pt developed severe abdominal pain, fever and vomitting, since then has developed diarrhea and persistent abdominal pain T max 39 Yesterday , difficulty tolerating po intake Feels dizzy and lightheaded Pain is persistent in both lower quadrants No one with similar symptoms No associated URI symptoms Hx of appendectomy Patient Active Problem List Diagnosis Transaminitis BUNNY (obstructive sleep apnea) Metabolic dysfunction-associated steatohepatitis (MASH) Hypertension Fever Right lower quadrant abdominal pain Review of Systems Constitutional: Positive for appetite change, chills and fever. Respiratory: Negative for cough, chest tightness and shortness of breath. Cardiovascular: Negative for chest pain. Gastrointestinal: Positive for abdominal pain, diarrhea, nausea and vomiting. Musculoskeletal: Negative for arthralgias. Objective Visit Vitals BP 121/80 (BP Location: Right arm, Patient Position: Sitting, BP Cuff Size: Adult) Pulse 68 Temp 98.3 ??F (36.8 ??C) (Temporal) Resp 18 Wt 230 lb (104 kg) SpO2 96% BMI 33.00 kg/m?? Smoking Status Former BSA 2.27 m?? Physical Exam Vitals reviewed. Constitutional: General: He is not in acute distress. Appearance: Normal appearance. He is obese. He is ill-appearing. HENT: Head: Normocephalic. Cardiovascular: Rate and Rhythm: Normal rate. Heart sounds: Normal heart sounds. Pulmonary: Breath sounds: Normal breath sounds. Abdominal: Palpations: Abdomen is soft. Tenderness: There is abdominal tenderness. There is guarding. Musculoskeletal: Cervical back: Neck supple. Neurological: Mental Status: He is alert. Psychiatric: Mood and Affect: Mood normal. Assessment/Plan Problem List Items Addressed This Visit Fever - Primary Relevant Orders Influenza A (ID NOW Rapid Molecular) (Completed) Influenza B (ID NOW Rapid Molecular) (Completed) POCT Rapid COVID Ag (Completed) Right lower quadrant abdominal pain Current Assessment & Plan Pt visibly uncomfortable, with difficulty tolerating oral intake at home Spouse reports has never seen pt this ill RLQ tenderness on palpation Reviewed options of supportive measures, blood work and STAT Ct vs er evaluation Pt opts for er evaluation, expect called to [facility] for abdominal pain and fever Current Outpatient Medications Medication Sig Dispense Refill amLODIPine (Norvasc) 5 MG tablet Take 5 mg by mouth Once per day. Blood Pressure kit For home use twice a day 1 kit 0 carvedilol (Coreg) 3.125 MG tablet Take 3.125 mg by mouth 2 times daily. ibuprofen 600 MG tablet Take 600 mg by mouth every 6 (six) hours. lidocaine (Lidoderm) 5 % patch Apply 1 patch topically Once per day. No current facility-administered medications for this visit. Visit Conducted in: [employer] Translation by: pt partner documented in this encounter Miscellaneous Notes * Assessment & Plan Note - Bel Wall NP - 11/14/2024 6:29 PM ESTAssociated Problem(s): Right lower quadrant abdominal pain Pt visibly uncomfortable, with difficulty tolerating oral intake at home Spouse reports has never seen pt this ill RLQ tenderness on palpation Reviewed options of supportive measures, blood work and STAT Ct vs er evaluation Pt opts for er evaluation, expect called to [facility] for abdominal pain and fever documented in this encounter Plan of Treatment Upcoming Encounters Date Type Department Care Team (Late st Contact Info) Description 01/02/2025 11:15 AM EDT Office Visit [facility] [address] [place] [address] Name, MD Skip [address] [place] [address] documented as of this encounter Procedures Procedure Name Priority Date/Time Associated Diagnosis Comments POCT INFLUENZA B (ID NOW RAPID MOLECULAR) Routine 11/14/2024 2:18 PM EST Fever, unspecified fever cause POCT INFLUENZA A (ID NOW RAPID MOLECULAR) Routine 11/14/2024 2:18 PM EST Fever, unspecified fever cause POCT RAPID COVID ANTIGEN Routine 11/14/2024 2:02 PM EST Fever, unspecified fever cause documented in this encounter Results * Influenza B (ID NOW Rapid Molecular) (11/14/2024 2:18 PM EST) Influenza B Negative Negative, Indeterminate [facility] Swab 11/14/2024 2:18 PM EST us Bel Wall NP POINT OF CARE TEST ENTER/EDIT OR DERABLES Final Result Performing Organization Address City/[facility]/ZIP Co de Phone Number [facility] [address] [place] [address] [phone] * Influenza A (ID NOW Rapid Molecular) (11/14/2024 2:18 PM EST) Influenza A Negative Negative, Indeterminate [facility] Swab 11/14/2024 2:18 PM EST Bel Wall HOUSEKEEPING ROOM INSPECTOR POINT OF CARE TEST ENTER/EDIT OR DERABLES Final Result Performing Organization Address [facility]/[place] Co de Phone Number [facility] [address] [place] [address] [phone] * POCT Rapid COVID Ag (11/14/2024 2:02 PM EST) Rapid COVID Ag Negative Swab 11/14/2024 2:02 PM EST Bel Wall HOUSEKEEPING ROOM INSPECTOR POINT OF CARE TEST ENTER/EDIT OR DERABLES Final Result documented in this encounter Visit Diagnoses Diagnosis Fever, unspecified fever cause- Primary Right lower quadrant abdominal pain documented in this encounter Additional Health Concerns Assessment Noted Time PHQ-9 Depression Total Score: 9 07/29/20 24 1:52 PM EDT documented as of this encounter Care Teams Veneer Gluer Relationship Specialty Start Date End Date Name, MD Skip [address] [place] [phone] PCP - General Internal Medicine 07/29/24 documented as of this encounter
--- NOTE | 2024-11-14 21:13 | ED.NAVMDI ---
HPI - Nausea/Vomiting/Diarrhea General Chief complaint: Nausea/Vomiting/Diarrhea Stated complaint: Fever, dizziness, vomiting sent from walk in Time Seen by Provider: 11/14/24 19:17 History of Present Illness HPI Narrative: Patient is a 44-year-old male presents today with having generalized abdominal pain nausea vomiting diarrhea. No history of abdominal surgery in the past. Decreased p.o. intake. Vomiting mostly food. Diarrhea from Thursday to Thursday. Actually got better today. He was mostly liquids. There is no blood. No history of recent antibiotics. No travel history. Patient is from home. No abdominal surgery done in the past. Related Data Previous Rx's ?Medication ?Instructions ?Recorded ibuprofen 600 mg tablet 600 mg PO Q6H PRN pain #20 tabs 12/14/23 cyclobenzaprine 10 mg tablet 10 mg PO TID PRN muscle spasm #14 01/14/24 tabs lidocaine 5 % topical patch 1 patch topical DAILY #15 ea 01/14/24 naproxen 500 mg tablet 500 mg PO BID PRN pain #20 tabs 01/14/24 ondansetron 4 mg disintegrating 4 mg PO TID PRN nausea and 11/15/24 tablet vomiting 5 days #10 tabs Allergies Allergy/AdvReac Type Severity Reaction Status Date / Time barium sulfate AdvReac Intermediate inadequate Verified 11/14/24 15:01 response trazodone AdvReac Intermediate dry mouth, Verified 11/14/24 15:01 vomiting Review of Systems Review of Systems: Positive abdominal pain Yes all other systems are reviewed and are negative PMFSH Past Medical History Attestation statement: The following information was validated with the patient. Medical History Physical exam Chest pain Class 2 obesity with body mass index (BMI) of 38.0 to 38.9 in adult Hypovitaminosis D Testosterone deficiency Transaminitis Hemorrhoids that prolapse with straining and require manual replacement back inside anal canal Cough Swollen R ankle Testicular pain Bleeding hemorrhoids Personal history of COVID-19 Abnormal ejaculation Obese Family history of colon cancer Rectal bleeding Surgical History H/O hemorrhoidectomy History of colonoscopy History of incision and drainage History of appendectomy Family History Family History Father Hypertension Stroke Diabetes Mother Hypertension Diabetes Paternal Grandfather Cancer Paternal Aunt Cancer Brother Cancer, Onset Age: 52 Sister No problems noted. 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 Oriented X3. No acute distress. Eyes: Pupils equal, round and reactive to light. ENT: Pharynx normal. Neck: Normal inspection. Neck supple. No lymph nodes noted. No crepitus CVS: Normal heart rate and rhythm. Pulses normal. Normal S1 and S2 Respiratory: No respiratory distress. Breath sounds normal. No Wheezing. No rales Abdomen: Soft and nontender. No rigidity. No distention. good BS x4 Skin: Skin warm and dry. Normal skin color. Normal skin turgor. Extremities: No lower extremity edema. Neurovascular intact to all extremities. No Lacerations. No Rash Neuro: Oriented X 3. No motor deficit. No sensory deficit. Moving all extermities. No slurred speech Medications Administered Discontinued Medications Generic Name Dose Route Start Last Admin Trade Name Freq PRN Reason Stop Dose Admin Sodium Chloride 1,000 mls @ 999 mls/hr 11/14/24 21:15 11/15/24 00:59 Ns IV 11/14/24 22:15 Infused .Q1H1M ARIE Infusion Sodium Chloride 1,000 mls @ 999 mls/hr 11/14/24 21:15 11/15/24 00:59 Ns IV 11/14/24 22:15 Infused .Q1H1M ARIE Infusion Iohexol 85 ml 11/14/24 23:02 11/14/24 23:02 Iohexol 350 Mg/Ml 100 Ml Infus..Btl IV 11/14/24 23:03 85 ml ONCE ONE Administration Ketorolac Tromethamine 30 mg 11/14/24 21:11 11/14/24 21:41 Ketorolac Tromethamine 30 Mg/Ml Vial IVPUSH 11/14/24 21:12 30 mg ONCE ONE Administration Ondansetron HCl 4 mg 11/14/24 21:11 11/14/24 21:41 Ondansetron Hcl 4 Mg/2 Ml Vial IVPUSH 11/14/24 21:12 4 mg ONCE ONE Administration Medical Decision Making Medical Decision Making [facility] Narrative: Positive nausea vomiting diarrhea generalized malaise decreased p.o. intake. My interpretation patient's CT scan was grossly negative for obstruction abscess perforation. I reviewed radiology's reading which was grossly negative for obstruction. No diverticulitis no kidney stone. Patient's white count is normal. Electrolytes has an elevated glucose. Otherwise negative. Flu COVID RSV strep all negative. Will discharge patient home as patient after fluids improved dramatically able to tolerate p.o. wants to go home Differential Diagnosis Differential Diagnoses: The differential diagnosis associated with the presentation includes Gastroenteritis Admission/Observation Consideration of admission/observation: Escalation of care including admission/observation considered Given patient's symptom improvement CT scan negative will discharge Lab Data [facility] Lab Attestation statement: I reviewed the patient's lab results. 11/14/24 16:04 11/14/24 16:04 Labs: Lab Results 11/14/24 Range/Units 16:04 WBC 7.0 (4.8-10.8) X10*3/uL RBC 5.37 (4.60-5.80) X10*6/uL Hgb 15.0 (14.0-18.0) g/dl Hct 44.8 (42.0-52.0) % MCV 83.4 (80.0-98.0) fL MCH 27.9 (27.0-33.0) pg MCHC 33.5 (31.0-36.0) g/dl RDW 12.2 (11.0-16.0) % Plt Count 229 D (160-400) X10*3/uL MPV 10.0 (9.4-12.4) fL Immature Gran % (Auto) 0.4 (0.0-0.4) % Neut % (Auto) 69.6 (45-73) % Lymph % (Auto) 17.7 L (20-40) % [place] % (Auto) 12.2 H (2-11) % Eos % (Auto) 0.0 (0-4) % Baso % (Auto) 0.1 (0-2) % Lymph # (Auto) 1.2 (1.2-4.9) X10*3/uL [place] # (Auto) 0.9 (0.1-1.2) X10*3/uL Eos # (Auto) 0.0 (0.0-0.4) X10*3/uL Baso # (Auto) 0.0 (0.0-0.2) X10*3/uL Abs Immat Gran (auto) 0.03 (0.00-0.03) X10*3/uL Absolute Neuts (auto) 4.8 (2.0-8.3) x10*3/uL Absolute Nucleated RBC 0.000 (0.0-0.012) X10*3/uL Nucleated RBC % (auto) 0.0 (0.0-0.2) /100WBC Sodium 137 (135-145) mmol/L Potassium 3.8 (3.3-5.1) mmol/L Chloride 102 (96-108) mmol/L Carbon Dioxide 28 (22-29) mmol/L Anion Gap 11 L (12-20) BUN 16 (9-16) mg/dL Creatinine 0.82 (0.5-1.4) mg/dL Estim Creat Clear Calc 135.3 Estimated GFR > 60 Random Glucose 245 H (60-115) mg/dL Calcium 8.8 D (8.4-10.2) mg/dL Magnesium 2.0 (1.6-2.6) mg/dL Total Bilirubin 0.5 (0.0-1.0) mg/dL Direct Bilirubin 0.2 (0.0-0.5) mg/dL AST 75 H (5-37) U/L ALT 112 H (0-40) U/L Alkaline Phosphatase 99 (39-117) U/L Total Protein 7.6 (6.5-8.0) g/dL Albumin 3.9 (3.5-5.0) g/dL Lipase 12 (8-78) U/L Influenza Type A (PCR) NEGATIVE (Negative) Influenza Type B (PCR) NEGATIVE (Negative) RSV RNA Qual (PCR) NEGATIVE (Negative) SARS-CoV-2 RNA (RT-PCR) NEGATIVE (Negative) S. pyogenes GrpA ZULAY Negative (Negative) Independent Interpretation I performed an independent interpretation of an: CT Scan (No obstruction noted) Radiology Impression Discussion of test interpretation with radiology: I have reviewed the radiologist's reading. Independent Historian Clinical information obtained from an independent historian. History obtained from or confirmed by: Spouse Discharge Plan Discharge Clinical Impression: Gastroenteritis Patient Disposition: Home, Self-Care Instructions: Gastroenteritis (ED) Prescriptions: New ondansetron 4 mg tablet,disintegrating 4 mg PO TID PRN (Reason: nausea and vomiting) 5 Days Qty: 10 0RF No Action ibuprofen 600 mg tablet 600 mg PO Q6H PRN (Reason: pain) Qty: 20 0RF lidocaine 5 % adhesive patch,medicated 1 patch topical DAILY Qty: 15 0RF Rx Instructions: leave on most painful area for up to 12 hrs naproxen 500 mg tablet 500 mg PO BID PRN (Reason: pain) Qty: 20 0RF cyclobenzaprine 10 mg tablet 10 mg PO TID PRN (Reason: muscle spasm) Qty: 14 0RF Referrals: Name,MD Skip [Primary Care Provider] - 11/17/24 Print Language: Tajik
[2024-11-14] MEDS: ondansetron HCL 4 MG/2 ML VIAL IVPUSH (21:41)
[2024-11-14] MEDS: 0.9 % Sodium Chloride 1,000 ML 999 ML IV ×2 (21:41)
[2024-11-14] MEDS: Ketorolac Tromethamine 30 MG/ML VIAL IVPUSH (21:41)
[2024-11-14 22:50] VITALS: BP 127/83; PULSE 63; RESP 16; TEMP 37.2; O2SAT 98
--- NOTE | 2024-11-14 22:51 | PC.NURSE ---
Previous 20g IV access in left AC infiltrated. This RN attempted to obtain 2nd IV access but was unsuccessful. Gloria Linares, RN able to obtain IV access in left hand (20g). IV fluids resumed. aware of reason for delayed complete infusion of IV fluids.
[2024-11-14] MEDS: iohexoL 350 MG/ML 100 ML INFUS..BTL 85 ML IV (23:02)
[2024-11-15 01:20] VITALS: BP 127/83; PULSE 63; RESP 16; TEMP 37.2; O2SAT 98
== END 2024-11-15 01:21 | disposition home or self-care (01) ==
PROVIDERS: Physician Assistant; Emergency Provider Emergency Medicine Emergency Medical Services; PCP Internal Medicine Geriatric Medicine
DX: K52.9 Noninfective gastroenteritis and colitis, unspecified (principal); R11.2 Nausea with vomiting, unspecified; R42 Dizziness and giddiness; R10.2 Pelvic and perineal pain; Z03.818 Encounter for observation for suspected exposure to other biological agents ruled out; Z87.891 Personal history of nicotine dependence; Z79.899 Other long term (current) drug therapy
CPT/HCPCS: 0241U; 74177; 80048; 80076; 83690; 83735; 85025; 87651; 96361; 96374; 96375; 99284; J1885; J2405; Q9967

== ENCOUNTER → 2024-11-14 21:12 | Outpatient (BNV) | payer MEDICAID, SELFPAY | PROVIDERS: Emergency Provider Emergency Medicine Emergency Medical Services; PCP Internal Medicine Geriatric Medicine; Visit Provider Radiology Diagnostic Radiology | DX: R16.0 Hepatomegaly, not elsewhere classified (principal); K57.30 Diverticulosis of large intestine without perforation or abscess without bleeding | CPT/HCPCS: 74177 ==

== ENCOUNTER 2024-12-01 11:01 | Outpatient (AMB) | payer MEDICAID, SELFPAY ==
--- NOTE | 2024-12-01 11:35 | MHC.OFFVIS ---
Vital Signs 12/01/24 11:39 Height 5 ft 10 in Weight 236 lb BMI 33.9 BP 146/90 H Blood Pressure Location Lt brachial Position Sitting Pulse 78 Pulse Source Pulse Oximeter Pulse Oximetry (%) 98 Oxygen Delivery Method Room Air Intake Visit Reasons: 1yr follow up sleep Material Controller Required: No Accompanied by: Self / Same As Patient Allergies barium sulfate Adverse Reaction (Intermediate, Verified 12/01/24 11:40) inadequate response trazodone Adverse Reaction (Intermediate, Verified 12/01/24 11:40) dry mouth, vomiting HPI Comments Details: 43 y/o male patient presents for follow up of BUNNY on CPAP. 04/21/2022, home sleep study showed mild degree of sleep apnea w/ AHI 8/hr and O2 becca 83%, snoring for 20% of the total sleep time. Since the last visit, patient states that he started not tolerating his CPAP setting of 17 cm H2O, and so his settings were changed to APAP 5-15 cm H2O. Since, he feels a he is tolerating much better. With CPAP he is sleeping better and no longer has snoring, which makes his happy. His daytime energy has improved. He is generally sleeping about 8 hours per night. He states he does changing clean his CPAP supplies regularly, but does need new CPAP filters. He does use filtered water in his CPAP water reservoir. [address], [facility] [place] Email: [email or web address] Compliance Report Usage 11/01/2024 - 11/30/2024? Usage days 30/30 days (100%) >= 4 hours 30 days (100%) < 4 hours 0 days (0%)? Usage hours 236 hours 52 minutes? Average usage (total days) 7 hours 54 minutes? Average usage (days used) 7 hours 54 minutes Median usage (days used) 7 hours 43 minutes? Total used hours (value since last reset - 11/30/2024) 4,575 hours? AirSense 10 AutoSet? Serial number [id number]? Mode AutoSet Min Pressure 5 cmH2O Max Pressure 15 cmH2O EPR Fulltime EPR level 2 Response Standard? Therapy Effects: Pressure - cmH2O Median: 6.7 95th percentile: 10.3 Maximum: 12.0? Leaks - L/min Median: 0.0 95th percentile: 1.8 Maximum: 6.2?Events per hour AI: 0.2 HI: 0.1 AHI: 0.3 PFSH Medical History Physical exam Chest pain Class 2 obesity with body mass index (BMI) of 38.0 to 38.9 in adult Hypovitaminosis D Testosterone deficiency Transaminitis Hemorrhoids that prolapse with straining and require manual replacement back inside anal canal Cough Swollen R ankle Testicular pain Bleeding hemorrhoids Personal history of COVID-19 Abnormal ejaculation Obese Family history of colon cancer Rectal bleeding Surgical History H/O hemorrhoidectomy History of colonoscopy History of incision and drainage History of appendectomy Family History Father Hypertension Stroke Diabetes Mother Hypertension Diabetes Paternal Grandfather Cancer Paternal Aunt Cancer Brother Cancer, Onset Age: 52 Sister No problems noted. 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 Current occupational exposures/hazards: No Cognitive needs: No Hearing needs: No Vision needs: No Physical Exam Vital Signs: Last Vital Signs Pulse 78 12/01/24 11:39 BP 146/90 H 12/01/24 11:39 Pulse Ox 98 12/01/24 11:39 Oxygen Delivery Method Room Air 12/01/24 11:39 BMI result Body Mass Index 33.9 Const General: no acute distress Orientation/consciousness: patient oriented x3 Resp Effort & Inspection: normal respiratory effort and able to speak in complete sentences Neuro General: patient oriented x3 Psych Mental Status: mental status grossly normal Speech and movement: Clear speech present Attitude: cooperative Assessment & Plan Assessment & Plan (1) BUNNY on CPAP: Comment: Mild degree of sleep apnea. The AHI was 8/hr and oxygen becca was 83%. Code(s): G47.33 - Obstructive sleep apnea (adult) (pediatric) Category: Medical Plan Continue APAP 5-15 cmH2O with EPR 2 nightly > 4 hours, as pt is experiencing good clinical effect from use. Clean CPAP machine and supplies routinely. Change CPAP supplies routinely. Use distilled water in CPAP water reservoir. We will request CPAP supplies, including filters. Pt to contact us or respiratory company with any questions or concerns. Coding Level of Care Code Est Pt Level 3 (53777) Diagnoses BUNNY on CPAP G47.33
[2024-12-01 11:39] VITALS: BP 146/90; PULSE 78; O2SAT 98; BMI 33.9
== END 2024-12-01 12:23 | disposition home or self-care (01) ==
PROVIDERS: PCP Internal Medicine Geriatric Medicine; Visit Provider Nurse Practitioner Family
DX: G47.33 Obstructive sleep apnea (adult) (pediatric) (principal)
CPT/HCPCS: 99213

== ENCOUNTER → 2024-12-01 11:01 | Outpatient (BNVA) | payer MEDICAID, SELFPAY | PROVIDERS: PCP Internal Medicine Geriatric Medicine; Visit Provider Nurse Practitioner Family | DX: G47.33 Obstructive sleep apnea (adult) (pediatric) (principal) | CPT/HCPCS: 99212 ==

== ENCOUNTER 2025-05-25 08:47 | Outpatient (AMB) | payer OTHER, SELFPAY ==
--- NOTE | 2025-05-25 08:47 | A.OFFVIS_ITS ---
Intake Visit Reasons: follow up/testo(seen 2022) Intake Note: Patient is present for testosterone follow up Urology Meds : none Blood Thinner: none Furniture Fabricator Required: No Accompanied by: Spouse Allergies barium sulfate Adverse Reaction (Intermediate, Verified 05/25/25 08:53) inadequate response trazodone Adverse Reaction (Intermediate, Verified 05/25/25 08:53) dry mouth, vomiting HPI Comments Details: David is a pleasant male. He is seen for the following urologic issues - premature ejaculation - left testicular pain - bilateral inguinal groin pain - possible hypogonadism Has not been seen in over 3 years Previously had hypogonadism with testosterone Has had sleep apnea on addressed and is on CPAP Belarusian translation performed in office by qualified medical reception Continued testicular pain On examination has marked pain at rectus abdominis insertion Referral to physical therapy Repeat testosterone labs History of brother with prostate cancer - will check PSA Reports overactive bladder symptoms - Trial daily tadalafil Groin pain and left testicular pain Procedure as 6-year-old with left testicle On exam left testicle is substantially smaller than right testicle Left testicle has pain along vas deferens Discussion today regarding use of injection to determine if would benefit from microscopic denervation Procedure performed September 2021 10 cc local anesthetic lidocaine and bupivacaine mix given to left cord Effective in nature Hypogonadism Initial laboratory values showed low testosterone Laboratory values 12/30 215, 10/01 185 FSH 10.2 LH 5.4, 12/31 T 197 Premature ejaculation Recommend use of numbing lidocaine jelly [facility] Medical History Physical exam Chest pain Class 2 obesity with body mass index (BMI) of 38.0 to 38.9 in adult Hypovitaminosis D Testosterone deficiency Transaminitis Hemorrhoids that prolapse with straining and require manual replacement back inside anal canal Cough Swollen R ankle Testicular pain Bleeding hemorrhoids Personal history of COVID-19 Abnormal ejaculation Obese Family history of colon cancer Rectal bleeding Surgical History H/O hemorrhoidectomy History of colonoscopy History of incision and drainage History of appendectomy Family History Father Hypertension Stroke Diabetes Mother Hypertension Diabetes Paternal Grandfather Cancer Paternal Aunt Cancer Brother Cancer, Onset Age: 52 Sister No problems noted. 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 Current occupational exposures/hazards: No Cognitive needs: No Hearing needs: No Vision needs: No Review of Systems Const Denies chills and Denies fever(s) Card Reports no additional complaints and Denies syncope Resp Denies cough GI Denies abdominal pain and Denies heartburn Reports as per HPI and Denies change in libido Neuro Denies syncope Psych Denies change in libido Endo Denies change in libido Physical Exam Const General: cooperative, healthy appearing, comfortable and no acute distress Orientation/consciousness: patient oriented x3 HEENT Face and sinus: Yes normal facial exam Mouth: moist mucous membranes Neck Neck: Yes normal visual inspection, Yes full ROM and Yes trachea midline Chest Chest palpation & inspection: normal inspection of the chest Resp Effort & Inspection: normal respiratory effort, able to speak in complete sentences and no respiratory distress GI Inspection: Yes normal to inspection Back/Spine/Pelvis Cervical Spine: normal cervical lordosis Thoracic/Lumbar Spine: thoracic and lumbar spine normal to inspection Skin General skin exam: no rashes or lesions noted Neuro General: patient oriented x3, gait normal, tone normal and moves all extremities Extrem General: Yes normal to inspection and Yes capillary refill normal Assessment & Plan Assessment & Plan (1) Hypogonadism in male: Code(s): E29.1 - Testicular hypofunction Category: Medical (2) Orchalgia: Code(s): N50.819 - Testicular pain, unspecified Category: Medical (3) Abnormal ejaculation: Code(s): N53.19 - Other ejaculatory dysfunction Category: Medical (4) Urinary urgency: Code(s): R39.15 - Urgency of urination Category: Medical Plan Three-month follow-up Orders: Orders Prostate Specific Antigen Today E29.1 - Testicular hypofunction Lutenizing Hormone Today E29.1 - Testicular hypofunction Testosterone, Free/Total Today E29.1 - Testicular hypofunction PT Evaluation and Treatment Today R10.2 - Pelvic and perineal pain, R10.30 - Lower abdominal pain, unspecified Medications: New tadalafil 5 mg PO DAILY 30 tabs 2RF 30 days R39.15 - Urgency of urination Patient Instructions: This note is constructed using voice recognition software. While every effort hester s been made to ensure accuracy precision honing machine operator errors may have been included. Imaging studies, laboratory and physical exam results were discussed and reviewed in detail. No major barriers to patient understanding were identified. An opportunity to ask questions regarding the treatment plan was provided. All questions were answered. The patient expressed understanding and agreement with the above treatment plan. The patient is aware they should contact our office by phone for worsening of their current condition or the appearance of new urologic symptoms. Compliance is encouraged with any medications and followup testing that is ordered. It is a privilege to participate in the urologic care of your patient. If you have any questions or concerns regarding treatment for the above conditions, or other urologic issues, please do not hesitate to contact me. The office telephone contact is [phone]. Sincerely, Dr Andrew Sanchez MD, [facility] - Urology Compassionate Specialist Care for the Genitourinary System Coding Level of Care Code Tele New Pt Level 4 (45056) Diagnoses Hypogonadism in male E29.1 Orchalgia N50.819 Abnormal ejaculation N53.19 Urinary urgency R39.15
--- OUTSIDE RECORDS SUMMARY | 2025-05-25 09:02 | XMS_ITS | Encounter Summary ---
Author Organization [employer] Address [address] [facility] [address] [place] [address] Care Team Providers Care Java Tech Name Role Phone Name, Skip OMER Primary Care Provider Reason for Visit * Reason Onset Date Comments Lab Orders 05/22/2025 Encounter Details Date Type Department Care Team ([facility] st Contact Info) Description 05/22/2025 Telephone [facility] [address] [place], [place] [id number] Name, MD Skip [address] [place] [address] Lab Orders Social History Tobacco Use Types Packs/Day Years [...] encounter Miscellaneous Notes * Telephone Encounter - Saumya Carver RN - 05/22/2025 2:56 PM EDT TC placed to 's medical record assistant at [facility]. [facility] staff asking if we have any recent testosterone or PSA lab results that pt has completed. [facility] staff inquiring as they have not seen pt since 2022. Advised that pt has not had either lab completed. [facility] staff verbalized understanding and denies questions at this time. * Telephone Encounter - Skip Garcia - 05/22/2025 8:40 AM EDT Tc from Mejia with [facility] requesting a call back with pts recent testosterone levels. Contact mejia at [phone] Montiel's [place] documented in this encounter Plan of Treatment Not on file documented as of this encounter Visit Diagnoses Not on filedocumented in this encounter Additional Health Concerns Assessment Noted Time PHQ-9 Depression Total Score: 9 07/29/20 24 1:52 PM EDT documented as of this encounter Care Teams Java Tech Relationship Specialty Start Date End Date Name, MD Skip [address] [place] [address] PCP - General Internal Medicine 07/29/24 documented as of this encounter
== END 2025-05-25 09:24 | disposition home or self-care (01) ==
PROVIDERS: PCP Internal Medicine Geriatric Medicine; Visit Provider Urology
DX: E29.1 Testicular hypofunction (principal); N50.819 Testicular pain, unspecified; N53.19 Other ejaculatory dysfunction; R39.15 Urgency of urination
CPT/HCPCS: 99204

== ENCOUNTER 2025-08-12 08:16 | Outpatient (REF) | payer OTHER, SELFPAY ==
--- OUTSIDE RECORDS SUMMARY | 2025-08-12 08:18 | XMS_ITS | Encounter Summary ---
Author Organization [employer] Address [address] [facility] [address] [place] [address] Care Team Providers Care Mophead Trimmer And Wrapper Name Role Phone Name, Skip OMER Primary Care Provider [phone] Reason for Visit * Reason Comments Pre-visit Planning SDOH negative. Tobac co screening negative. Encounter Details Date Type Department Care Team ([facility] Contact Info) Description 08/07/2025 Patient Outreach [facility] [address] [place], [place] [phone] Name, MD Skip [address] [place] [address] Pre-visit Planning (SDOH negative. Tobacco screening negative. ) Social History Tobacco Use Types Packs/Day Years [...] housing situation today? I have baron tsang 08/07/[address] you li ve. Do you have problems with any of the following? None of the above 08/07/2025 Food Insecurity Answer Date Recorded Within the past 12 months, y ou worried that your food would run out before you got money to buy more: Never True 08/07/2025 Within the past 12 months,th e food you bought just didn't last and you didn't have enough money to get more: Never True Transportation Answer Date Recorded In the past 12 months, has l ack of transportation kept you from medical appts, meetings, work or from getting things needed for daily living? No 08/07/2025 Utilities Answer Date Recorded In the past 12 months, has t he electric, gas, oil or water company threatened to shut off services in your home? No 08/07/2025 Depression Answer Date Recorded Patient Health Questionnaire-2 Score 1 07/29/2024 Internet Access Answer Date Recorded Internet Access Q1 Yes 08/07/2025 Internet Access Q2 Not on file 08/07/2025 Sex and Gender Information Value Date Recorded Sex Assigned at Male 03/22/2024 1:55 PM EDT Legal Sex Male 1:53 PM EDT Gender Identity Male 03/22/2024 1:55 PM EDT Sexual Orientation Straight 03/22/2024 1: 55 PM EDT documented as of this encounter Progress Notes * Brenda Wu - 08/07/2025 2:22 PM EDT CC Brenda Severino placed successful outbound call to patient for pre-visit planning. Patient name and confirmed. Patient confirms appt date and time, and has transportation arrangements. Biggest concern for appointment at this time is allergy doctor referral Appropriate screenings completed in anticipation of appointment. documented in this encounter Plan of Treatment Upcoming Encounters Date Type Department Care Team (Late st Contact Info) Description 08/14/2025 2:45 PM EST Office Visit [facility] [address] [place] [address] NameSkip MD [address] [place] [address] documented as of this encounter Visit Diagnoses Not on filedocumented in this encounter Additional Health Concerns Assessment Noted Time PHQ-9 Depression Total Score: 9 07/29/20 24 1:52 PM EDT documented as of this encounter Care Teams Mophead Trimmer And Wrapper Relationship Specialty Start Date End Date NameSkip MD [address] [place] [address] PCP - General Internal Medicine 07/29/24 documented as of this encounter
--- OUTSIDE RECORDS SUMMARY | 2025-08-12 08:19 | XMS_ITS | Encounter Summary ---
Author Organization [employer] Address [address] [facility] [address] [place] [address] Care Team Providers Care Decorator Street And Building Name Role Phone Name, Skip OMER Primary Care Provider [phone] Reason for Visit * Reason Onset Date Comments Chart Prep 08/11/2025 Encounter Details Date Type Department Care Team ([facility] st Contact Info) Description 08/11/2025 Telephone [facility] [address] [place], [place] [phone] Name, MD Skip [address] [place] [address] Chart Prep Social History Tobacco Use Types Packs/Day Years [...] encounter Miscellaneous Notes * Telephone Encounter - Kwasi Wu MA - 08/11/2025 1:58 PM EDT Chart Prep Labs: done Images: done Referrals: complete Vaccines due: Covid, Flu, and Hep A Screenings: colonoscopy Overdue care gaps: PHQ-9, GOMEZ-7, Disability screen, and Tobacco documented in this encounter Plan of Treatment Upcoming Encounters Date Type Department Care Team (Late st Contact Info) Description 08/14/2025 2:45 PM EST Office Visit [facility] [address] [place] [address] NameSkip MD [address] [place] [address] documented as of this encounter Visit Diagnoses Not on filedocumented in this encounter Additional Health Concerns Assessment Noted Time PHQ-9 Depression Total Score: 9 07/29/20 24 1:52 PM EDT documented as of this encounter Care Teams Decorator Street And Building Relationship Specialty Start Date End Date NameSkip MD [address] [place] [address] PCP - General Internal Medicine 07/29/24 documented as of this encounter
--- OUTSIDE RECORDS SUMMARY | 2025-08-12 08:19 | XMS_ITS | Clinical Summary ---
Author Organization [employer] Address [address] [facility] [address] [place] [address] Care Team Providers Care Air Quality Instrument Specialist Name Role Phone Name, Skip OMER Primary Care Provider [phone] Allergies Active Allergy Reactions Criticality Noted Date Comments Barium Sulfate High 11/14/2024 Other Reaction(s): inadequate response Side Effects Trazodone 07/19/2024 Medications ibuprofen 600 MG tablet [...] Active Problems Problem Noted Date Diagnosed Date Abnormal ejaculation 12/29/2024 Arthritis of right knee 12/29/2024 Bleeding hemorrhoids 12/29/2024 Rectal bleeding 12/29/2024 Class 2 obesity with body ma ss index (BMI) of 38.0 to 38.9 in adult 12/29/2024 Obese 12/29/2024 Cough 12/29/2024 COVID-19 12/29/2024 Deep inguinal pain 12/29/2024 Overview (12/29/2024): Inguinal disruption Excessive sleepiness 12/29/2024 Family history of colon cancer 12/29/2024 Gastroenteritis 12/29/2024 Hemorrhoids that prolapse wi th straining and require manual replacement back inside anal canal 12/29/2024 Hypovitaminosis D 12/29/2024 Lump of right breast 12/29/2024 Chest pain 12/29/2024 Nipple pain 12/29/2024 Pain in testicle 12/29/2024 Physical exam 12/29/2024 Sinusitis 12/29/2024 Strain of lumbar region 12/29/2024 Swollen R ankle 12/29/2024 Testosterone deficiency 12/29/2024 HTN (hypertension) 12/29/2024 BUNNY on CPAP 12/29/2024 Overview (12/29/2024): Mild degree of sleep apnea. The AHI was 8/hr and oxygen becca was 83%. Sleep apnea in adult 12/29/2024 Fever 11/14/2024 Right lower quadrant abdominal pain 11/14/2024 Assessment & Plan (11/14/2024 6:29 PM EST): Pt visibly uncomfortable, with difficulty tolerating oral intake at home Spouse reports has never seen pt this ill RLQ tenderness on palpation Reviewed options of supportive measures, blood work and STAT Ct vs er evaluation Pt opts for er evaluation, expect called to [facility] ER for abdominal pain and fever Metabolic dysfunction-associated steatohepatitis (MASH) 08/30/2024 Hypertension 08/30/2024 Transaminitis 07/29/2024 Overview (07/29/2024): . BUNNY (obstructive sleep apnea) 07/29/2024 Overview (07/29/2024): One CPAP Encounters Date Type Department Care Team Description 08/11/2025 Telephone [facility] [address] [place], [place] [phone] NameSkip MD Chart Prep 08/07/2025 Patient Outreach [facility] [address] [place], [place] [phone] NameSkip MD Pre-visit Planning (SDOH negative. Tobacco screening negative. ) 05/22/2025 Telephone [facility] [address] [place] [address] Name, MD Skip Lab Orders from Last 3 Months Immunizations Immunization Administration Dates Next Due Hep A, Adult 08/31/2024 INFLUENZA VACCINE QUADRIVALE NT RECOMBINANT PRESERVATIVE FREE RIV4 11/03/2019 Influenza injectable quadrivalent preservative f ree 11/27/2021 Influenza, seasonal, injectable, preservative fr ee 07/29/2024 Moderna Covid-19 Vaccine 12+ 08/26/2021 Pfizer Covid-19 Vaccine 12+ 02/02/2021, Tdap 07/29/2024,04/18/2013 Social History Tobacco Use Types Packs/Day Years [...] 68 11/14/2024 1:59 PM EST Temperature 36.8 C (98.3 F) 11/14/2024 1:59 PM EST Respiratory Rate 18 11/14/2024 1:59 PM EST [...] Description 08/14/2025 2:45 PM EST Office Visit [facility] [address] [place] [phone] Name, MD Skip [address] [place] [phone] Health Maintenance Due Date Last Done Comments CT Colonography 1978 Colonoscopy 1978 Colorectal Cancer Screening 1978 FIT DNA/Cologuard 1978 FIT 1978 FOBT 1978 HIV Screening 1978 Sigmoidoscopy 1978 Disability Screening 1978 Family Planning (PISQ) 1993 Depression Monitoring 01/27/2025 07/29/2024 , 07/29/2024 Hepatitis A Vaccines (2 of 2 - Risk 2-dose series) 02/28/2025 08/31/2024 COVID-19 Vaccine ( - 2024-2 6 season) 2025 08/26/2021, 02/02/2021, 01/12/2021 Influenza Vaccine (#1) 2025 , 11/27/2021, 11/03/2019 Tobacco Screening 08/18/2025 08/18/2024 Alcohol/Substance Use Screening 08/30/2025 08/30/2024 SDOH Screening 08/07/2026 08/07/2025 Zoster Vaccines (1 of 2) 2028 Lipid Panel 08/02/2029 08/02/2024 DTaP/Tdap/Td Vaccines (3 - T d or Tdap) 07/29/2034 07/29/2024, 04/18/2013 RSV Patients and Patients Aged 60 years or older (1 - 1-dose 75+ series) 2053 Hepatitis C Screening Completed 08/02/2024 HIB Vaccines Aged Out No longer eligi ble based on patient's age to complete this topic HPV Vaccines Aged Out No longer eligi ble based on patient's age to complete this topic Hepatitis B Vaccines Discontinued IPV Vaccines Aged Out No longer eligi ble based on patient's age to complete this topic Meningococcal B Vaccine Aged Out No l onger eligible based on patient's age to complete this topic Meningococcal Vaccine Aged Out No tina teofilo eligible based on patient's age to complete this topic Pneumococcal Vaccine: Pediatrics (0 to 5 Years) and At-Risk Patients (6 to 49) Years Aged Out No longer eligible based on patient's age to complete this topic RSV under 20 months Aged Out No longe r eligible based on patient's age to complete this topic Rotavirus Vaccines Aged Out No longer eligible based on patient's age to complete this topic Procedures Procedure Name Priority Date/Time Associated Diagnosis Comments HEPATITIS C AB W/REFL TO HCV RNA, QN, PCR Routine 08/02/2024 8:20 AM EDT Transaminitis LIPID PANEL, STANDARD Routine 08/02/2024 8:20 AM EDT Transaminitis from Last 3 Months or Most Recently Relevant to Health Maintenance Results * Hepatitis C Antibody with Reflex to HCV, RNA, Quantitative, Real-Time PCR (08/02/2024 8:20 AM EDT) Hepatitis C Antibody Nonreactive Nonreactive [facility] Comment:Antibodies to HCV no t detected; does not exclude early acuteHCV infection. Blood Venous blood specimen / Unknown 08/02/2024 8:20 AM EDT 08/02/2024 11:09 AM EDT Skip Herzog MD LAB BLOOD ORDERABLES Final Resul t Performing Organization Address [facility] de Phone Number [facility] [address] [place] [phone] * (ABNORMAL) Lipid Panel, Standard (08/02/2024 8:20 AM EDT) Triglycerides 148 <150 mg/dL [facility] Comment:Desirable Triglyceri de: less than 150 mg/dLBorderline High Triglyceride 150-199 mg/dLHigh Triglyceride: 200-499 mg/dLVery High Triglyceride: greater than or equal to 5OO mg/dL Cholesterol 186 <200 mg/dL [facility] Comment:Desirable Cholestero l: less than 200 mg/dLBorderline High Cholesterol: 200-239 mg/dLHigh Cholesterol: greater than 239 mg/dL LDL Cholesterol Calculated 108(H) <100 mg/dL [facility] Comment:Desirable LDL: less than 100 mg/dLNear Optimal/Above Optimal LDL: 110- 129 mg/dLBorderline High LDL: 130-159 mg/dLHigh LDL: 160-189 mg/dLVery High LDL: greater than or equal to 190 mg/dL HDL Cholesterol 49 >40 mg/dL [facility] Comment:Desirable HDL: great er than 40 mg/dL Note: This HDL assay may give artificially low results in patients with liver disease. Blood Venous blood specimen / Unknown 08/02/2024 8:20 AM EDT 08/02/2024 11:09 AM EDT us Skip Herzog MD LAB BLOOD ORDERABLES Final Resul t Performing Organization Address [facility] Co de Phone Number [facility] [address] [place] [phone] from Last 3 Months or Most Recently Relevant to Health Maintenance Insurance [facility] 2 Care Teams Air Quality Instrument Specialist Relationship Specialty Start Date End Date Name, MD Skip [address] [place] [address] PCP - General Internal Medicine 07/29/24
[2025-08-12 10:18] LABS: Prostate Specific Antigen 0.83 ng/mL (<0.05-4.0)
[2025-08-20 13:24] LABS: Testosterone, Free 68.3 pg/mL (35.0-155.0)
== END 2025-08-12 08:17 | disposition home or self-care (01) ==
LOC: HO.LAB 08:16
PROVIDERS: PCP Internal Medicine Geriatric Medicine; Visit Provider Urology
DX: E29.1 Testicular hypofunction (principal)
CPT/HCPCS: 36415; 83002; 84153; 84402; 84403

== ENCOUNTER 2025-08-25 08:39 | Outpatient (AMB) | payer OTHER, SELFPAY ==
--- NOTE | 2025-08-25 08:48 | A.OFFVIS_ITS ---
Intake Visit Reasons: 3M Labs/UA/PVR-Urgency Concerns Intake Note: Patient is present for LABS Urology Med: Tadalafil Antibiotic Allergy: None Blood Thinner: None PVR:461ML 08/12/2025 PSA- 0.83 LH- 8.3 Testosterone: Pending Sheetmetal Trades Worker Required: Yes Sheetmetal Trades Worker Language: Azerbaijani Accompanied by: Self / Same As Patient Allergies barium sulfate Adverse Reaction (Intermediate, Verified 08/25/25 08:56) inadequate response trazodone Adverse Reaction (Intermediate, Verified 08/25/25 08:56) dry mouth, vomiting HPI Comments Details: David is a pleasant male. He is seen for the following urologic issues - premature ejaculation - left testicular pain - bilateral inguinal groin pain - possible hypogonadism Azerbaijani translation performed in office by qualified medical records field technician Last seen in May Follow-up after trial of tadalafil Complaints of pelvic pressure Pain towards the tip of the penis On exam consistent with prostatitis Has recurrent hemorrhoids Previously had hypogonadism with testosterone Has had sleep apnea on addressed and is on CPAP Continued testicular pain On examination has marked pain at rectus abdominis insertion Referral to physical therapy Repeat testosterone labs - low normal History of brother with prostate cancer - will check PSA Reports overactive bladder symptoms - Trial daily tadalafil Groin pain and left testicular pain Procedure as 6-year-old with left testicle On exam left testicle is substantially smaller than right testicle Left testicle has pain along vas deferens Discussion today regarding use of injection to determine if would benefit from microscopic denervation Procedure performed September 2021 10 cc local anesthetic lidocaine and bupivacaine mix given to left cord Effective in nature Hypogonadism Initial laboratory values showed low testosterone Laboratory values 12/30 215, 10/01 185 FSH 10.2 LH 5.4, 12/31 T 197, 09/05 T 272 Premature ejaculation Recommend use of numbing lidocaine jelly [facility] Medical History Physical exam Chest pain Class 2 obesity with body mass index (BMI) of 38.0 to 38.9 in adult Hypovitaminosis D Testosterone deficiency Transaminitis Hemorrhoids that prolapse with straining and require manual replacement back inside anal canal Cough Swollen R ankle Testicular pain Bleeding hemorrhoids Personal history of COVID-19 Abnormal ejaculation Obese Family history of colon cancer Rectal bleeding Surgical History H/O hemorrhoidectomy History of colonoscopy History of incision and drainage History of appendectomy Family History Father Hypertension Stroke Diabetes Mother Hypertension Diabetes Paternal Grandfather Cancer Paternal Aunt Cancer Brother Cancer, Onset Age: 52 Sister No problems noted. 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 Current occupational exposures/hazards: No Cognitive needs: No Hearing needs: No Vision needs: No Review of Systems Const Denies chills and Denies fever(s) Card Reports no additional complaints and Denies syncope Resp Denies cough GI Denies abdominal pain and Denies heartburn Reports as per HPI and Denies change in libido Neuro Denies syncope Psych Denies change in libido Endo Denies change in libido Physical Exam Const General: cooperative, healthy appearing, comfortable and no acute distress Orientation/consciousness: patient oriented x3 HEENT Face and sinus: Yes normal facial exam Mouth: moist mucous membranes Neck Neck: Yes normal visual inspection, Yes full ROM and Yes trachea midline Chest Chest palpation & inspection: normal inspection of the chest Resp Effort & Inspection: normal respiratory effort, able to speak in complete sentences and no respiratory distress GI Inspection: Yes normal to inspection Rectal Exam - Male: Yes normal sphincter tone and Yes prostate normal Male General Exam: Yes normal external exam Penis: normal penis and circumcised Meatus: meatus normal Scrotum: scrotum normal Testes: Testes normal Back/Spine/Pelvis Cervical Spine: normal cervical lordosis Thoracic/Lumbar Spine: thoracic and lumbar spine normal to inspection Skin General skin exam: no rashes or lesions noted Neuro General: patient oriented x3, gait normal, tone normal and moves all extremities Extrem General: Yes normal to inspection and Yes capillary refill normal Office Procedures Post Void Residual Post Residual Void Post Void Residual (PVR): [id number] Void Residual by ultrasound Assessment & Plan Assessment & Plan (1) Prostatitis: Code(s): N41.9 - Inflammatory disease of prostate, unspecified Category: Medical Plan Three-month follow-up Orders: Orders AMB Post Void Residual by ultrasound Today R39.15 - Urgency of urination Medications: New sulfamethoxazole-trimethoprim 800-160 mg (Bactrim DS) 1 tab PO BID 28 tabs 0RF 14 days N41.9 - Inflammatory disease of prostate, unspecified prednisone 20 mg PO DAILY 5 tabs 0RF 5 days N41.9 - Inflammatory disease of prostate, unspecified naproxen (Naprosyn) 500 mg PO Q12H PRN 60 tabs 0RF pain 30 days N41.9 - Inflammatory disease of prostate, unspecified, S39.91XA - Unspecified injury of abdomen, initial encounter Patient Instructions: This note is constructed using voice recognition software. While every effort has been made to ensure accuracy splitter hand errors may have been included. Imaging studies, laboratory and physical exam results were discussed and reviewed in detail. No major barriers to patient understanding were identified. An opportunity to ask questions regarding the treatment plan was provided. All questions were answered. The patient expressed understanding and agreement with the above treatment plan. The patient is aware they should contact our office by phone for worsening of their current condition or the appearance of new urologic symptoms. Compliance is encouraged with any medications and followup testing that is ordered. It is a privilege to participate in the urologic care of your patient. If you have any questions or concerns regarding treatment for the above conditions, or other urologic issues, please do not hesitate to contact me. The office telephone contact is [phone]. Sincerely, Dr Andrew Sanchez MD, [facility] - Urology Compassionate Specialist Care for the Genitourinary System Coding Level of Care Code Est Pt Level 4 (37767) Complex EM visit Add On G2211 Diagnoses Prostatitis N41.9 CPT Codes Post Residual Void - PVR CPT Code: 49292-Ldyq Void Residual by ultrasound ([id number])
--- OUTSIDE RECORDS SUMMARY | 2025-08-25 08:56 | XMS_ITS | Clinical Summary ---
Author Organization [employer] Address [address] [place] [address] Care Team Providers Care Back Tender Cylinder Name Role Phone Name, Skip OMER Primary Care Provider [phone] Allergies Active Allergy Reactions Criticality Noted Date [...] by mouth 2 times daily. 4 Active fluticasone (Flonase) 50 MCG/ACT nasal spray Administer 2 sprays into each nostril Once per day. Shake gently. Before first use, prime pump. After use, clean tip and replace cap. 16 g 2 5 08/14/20 26 Active azelastine (Astelin) 0.1 % nasal spray Administer 1 spray into each nostril 2 times daily. Use in each nostril as directed 30 mL 12 5 08/14/20 26 Active Active Problems Problem Noted Date Diagnosed [...] opts for er evaluation, expect called to [place] [facility] for abdominal pain and fever Metabolic dysfunction-associated steatohepatitis (MASH) 08/30/2024 Hypertension 08/30/2024 Transaminitis 07/29/2024 Overview (07/29/2024): . BUNNY (obstructive sleep apnea) 07/29/2024 Overview (07/29/2024): One CPAP Encounters Date Type Department Care Team Description 08/14/2025 2:45 PM EST Office Visit [facility] [address] [place] [address] Skip Herzog MD Physical exam (Primary Dx); History of colonoscopy; Encounter for immunization; Metabolic dysfunction-associated steatohepatitis (MASH); Hypertension, unspecified type; Allergic conjunctivitis and rhinitis, unspecified laterality 08/14/2025 Travel 08/12/2025 Orders Only GENERIC EXTERNAL DATA DEPARTMENT Provider, Generic External Data 08/11/2025 Telephone [facility] [address] [place] [address] Skip Herzog MD Chart Prep 08/07/2025 Patient Outreach [facility] [address] [place], [place] [phone] Skip Herzog MD Pre-visit Planning (SDOH negative. Tobacco screening negative. ) from Last 3 Months Immunizations Immunization Administration Dates Next Due Hep A, Adult 08/31/2024 INFLUENZA VACCINE QUADRIVALE NT RECOMBINANT PRESERVATIVE FREE RIV4 11/03/2019 Influenza injectable quadrivalent preservative f ree 11/27/2021 Influenza, seasonal, injectable, preservative fr ee 08/14/2025,07/29/2024 Moderna Covid-19 Vaccine 12+ 08/26/2021 Pfizer Covid-19 Vaccine 12+ 02/02/2021, Tdap 07/29/2024,04/18/2013 Family History Medical History Relation Name Comments Colon cancer Brother Depression Father Diabetes Mother Hypertension Mother Relation Name Status Comments Brother Father Mother Social History Tobacco Use Types Packs/Day Years Used Date Smoking Tobacco: Former Cigarettes Q uit: 01/18/2022 Passive Smoke Exposure: Past Smokeless Tobacco: Former Quit: 2023 Tobacco Cessation:Counseling Given: Not Answered Alcohol Use Standard Drinks/Week Comments Not Currently 0 (1 standard drink = 0.6 oz pur e alcohol) 6 beers once a week Depression Answer Date Recorded Patient Health Questionnaire-9 Score 4 08/14/2025 Patient Health Questionnaire-9 Score 4 08/14/2025 Last PHQ-9: Questionnaire Data Not on file 1 10/14/2024 Housing Stability Answer Date Recorded What is [...] Date Recorded Patient Health Questionnaire-2 Score 1 08/14/2025 Internet Access Answer Date Recorded Internet Access [...] Sign Reading Time Taken Comments Blood Pressure 154/82 08/14/2025 2:50 PM EST Pulse 110 08/14/2025 2:50 PM EST Temperature 36.8 C (98.2 F) 08/14/2025 2:50 PM EST Respiratory Rate 16 08/14/2025 2:50 PM EST Oxygen Saturation 96% 08/14/2025 2:50 PM EST Inhaled Oxygen Concentration - - Weight 98.5 kg (217 lb 2 oz) 08/14/2025 2:50 PM EST Height 170 cm (5' 6.93 ) 08/14/2025 2:50 PM EST Body Mass Index 34.08 08/14/2025 2:50 PM EST Plan of Treatment Upcoming Encounters Date Type Department Care Team (Late st Contact Info) Description 08/29/2025 11:30 AM EST Telemedicine [facility] [address] [place] [address] Health Maintenance Due Date Last Done Comments CT Colonography 1978 Colonoscopy 1978 Colorectal Cancer Screening 1978 FIT DNA/Cologuard 1978 FIT 1978 FOBT 1978 HIV Screening 1978 Sigmoidoscopy 1978 Family Planning (PISQ) 1993 Hepatitis A Vaccines (2 of 2 - Risk 2-dose series) 02/28/2025 08/31/2024 COVID-19 Vaccine ( season) 2025 08/26/2021, 02/02/2021, 01/12/2021 Alcohol/Substance Use Screening 08/30/2025 08/30/2024 SDOH Screening 08/07/2026 08/07/2025 Depression Screening 08/14/2026 08/14/2025, 08/14/20 Disability Screening 08/14/2026 08/14/2025 Tobacco Screening 08/14/2026 08/14/2025 Zoster Vaccines (1 of 2) 2028 Lipid Panel 08/02/2029 08/02/2024 DTaP/Tdap/Td Vaccines (3 - Td or Tdap) 07/29/2034 07/29/2024, 04/18/2013 RSV Patients and Patients Aged 60 years or older (1 - 1-dose 75+ series) 2053 Hepatitis C Screening Completed 08/02/2024 Influenza Vaccine Completed 08/14/2025, , 11/27/2021, Additional history exists HIB Vaccines Aged Out No longer eligi [...] Procedure Name Priority Date/Time Associated Diagnosis Comments TESTOSTERONE, FREE (DIALYSIS) AND TOTAL,MS Routine 08/12/2025 8:31 AM EDT LH Routine 08/12/2025 8:31 AM EDT PSA, TOTAL Routine 08/12/2025 8:31 AM EDT HEPATITIS C AB W/REFL TO HCV RNA, QN, PCR Routine 08/02/2024 8:20 AM EDT Transaminitis LIPID PANEL, STANDARD Routine 08/02/2024 8:20 AM EDT Transaminitis from Last 3 Months or Most Recently Relevant to Health Maintenance Results * Testosterone, Free (Dialysis) And Total, MS (08/12/2025 8:31 AM EDT) Testosterone, Total 272 250 - 1100 ng/dL [facility] Comment:For additional infor jack, please refer tohttp://education.[employer]/faq/ZuvgxAdasnjiqmuxgWVGMGUFDU165(This link is being provided for informational/educational purposes only.)This test was developed and its analytical performancecharacteristics have been determined by [employer] [place], [place]. It hasnot been cleared or approved by the U.S. Food and DrugAdministration. This assay has been validated pursuantto the CLIA regulations and is used for clinicalpurposes. Testosterone, Free 68.3 35.0 - 155.0 pg/mL [facility] Comment:This test was develo ped and its analytical performancecharacteristics have been determined by [employer] [place], [place]. It hasnot been cleared or approved by the U.S. Food and DrugAdministration. This assay has been validated pursuantto the CLIA regulations and is used for clinicalpurposes.THIS TEST WAS PERFORMED AT:[id number] [place] [address]LHSHVGVLISET FELIPE MD,PHD 08/12/2025 8:31 AM EDT 08/12/2025 8:31 AM EDT us Generic External Data Provider LAB BLOOD ORDERAB LES Final Result Performing Organization Address [facility]/ZIP Co de Phone Number [facility] [address] [place] [phone] * PSA,Total (08/12/2025 8:31 AM EDT) Prostate Specific Antigen 0.83 <0.05 - 4.0 ng/mL [facility] Comment:PSA methodology: Abb melissa Alisusanaty i ChemiluminescentMicroparticle Immunoassay (CMIA) 08/12/2025 8:31 AM EDT 08/12/2025 8:31 AM EDT us Generic External Data Provider LAB BLOOD ORDERAB LES Final Result Performing Organization Address [facility] de Phone Number [facility] [address] [place] [phone] * LH (08/12/2025 8:31 AM EDT) Lutenizing Hormone 8.3 1.5 - 9.3 mIU/mL [facility] Comment:THIS TEST WAS PERFOR MED AT:[facility] [address] [id number] ARREOLA MD 08/12/2025 8:31 AM EDT 08/12/2025 8:31 AM EDT us Generic External Data Provider LAB BLOOD ORDERAB LES Final Result Performing Organization Address [facility] Co de Phone Number [facility] [address] [place] [phone] * Hepatitis C Antibody with Reflex to HCV, RNA, Quantitative, Real-Time PCR (08/02/2024 8:20 AM EDT) Hepatitis C Antibody Nonreactive Nonreactive [facility] Comment:Antibodies to HCV no t detected; does not exclude early acuteHCV infection. Blood Venous blood specimen / Unknown 08/02/2024 8:20 AM EDT 08/02/2024 11:09 AM EDT us Skip Herzog MD LAB BLOOD ORDERABLES Final Resul t [facility] [address] [place] [phone] * (ABNORMAL) Lipid Panel, Standard (08/02/2024 8:20 AM EDT) Triglycerides 148 <150 mg/dL [facility] Comment:Desirable Triglyceri de: less than 150 mg/dLBorderline High Triglyceride 150-199 mg/dLHigh Triglyceride: 200-499 mg/dLVery High Triglyceride: greater than or equal to 5OO mg/dL Cholesterol 186 <200 mg/dL [facility] Comment:Desirable Cholestero l: less than 200 mg/dLBorderline High Cholesterol: 200-239 mg/dLHigh Cholesterol: greater than 239 mg/dL LDL Cholesterol Calculated 108(H) <100 mg/dL [facility] Comment:Desirable LDL: less than 100 mg/dLNear Optimal/Above Optimal LDL: 110- 129 mg/dLBorderline High LDL: 130-159 mg/dLHigh LDL: 160-189 mg/dLVery High LDL: greater than or equal to 190 mg/dL HDL Cholesterol 49 >40 mg/dL [facility] Comment:Desirable HDL: great er than 40 mg/dL Note: This HDL assay may give artificially low results in patients with liver disease. Blood Venous blood specimen / Unknown 08/02/2024 8:20 AM EDT 08/02/2024 11:09 AM EDT us Skip Herzog MD LAB BLOOD ORDERABLES Final Resul t [facility] [address] [place] [phone] from Last 3 Months or Most Recently Relevant to Health Maintenance Insurance [facility] [address] [place] [phone] Care Teams Back Tender Cylinder Relationship Specialty Start Date End Date Name, MD Skip [address] [place] [address] PCP - General Internal Medicine 07/29/24
== END 2025-08-25 09:54 | disposition home or self-care (01) ==
LOC: HO.HUSH 08:40
PROVIDERS: PCP Internal Medicine Geriatric Medicine; Visit Provider Urology
DX: N41.9 Inflammatory disease of prostate, unspecified (principal)
CPT/HCPCS: 99214

== ENCOUNTER → 2025-08-25 08:39 | Outpatient (BNVA) | payer OTHER, SELFPAY | PROVIDERS: PCP Internal Medicine Geriatric Medicine; Visit Provider Urology | DX: N41.9 Inflammatory disease of prostate, unspecified (principal) | CPT/HCPCS: 51798; 99212 ==